=== PATIENT | male | born 1970 | race Caucasian/White ===

== ENCOUNTER → 2025-01-11 | Outpatient (CLI) | payer OTHER, SELFPAY ==
--- OUTSIDE RECORDS SUMMARY | 2025-01-11 18:21 | XMS RPT_ITS | CCD ---
Author Organization [facility] ion [facility] Care Team Providers Care Consolidator Name Role Phone Chon Cedeno Unavailable Unavailable Chandra Currie Unavailable Unavailable Cordell COOLEY, Franc Hurley Primary Care Provider Cordell COOLEY, Franc Hurley Primary Care Provider [phone] Cordell COOLEY, Franc Hurley Primary Care Provider [phone] Cordell COOLEY, Franc Hurley Primary Care Provider [phone] [employer] CLIENT SERVICES [email or web address].CAMPOS, Maria Fernanda Mcgee Unavailable [phone] MARY SANCHEZ Referring Unavailable COFFMAN, FRANC Hurley Primary Care Unavailable COFFMAN, FRANC Hurley Referring Unavailable COFFMAN, FRANC Hurley Primary Care Unavailable PAYTON GLASS Attending Unavailab le SELF Referring Unavailable COFFMAN, BENITA Primary Care Unavailable COFFMAN, BENITA Referring Unavailable COFFMAN, FRANC Hurley Primary Care Unavailable MARIA FERNANDA OSEI Referring Unavailable COFFMAN, FRANC Hurley Primary Care Unavailable RONALD GONSALVES Referring Unavailable COFFMAN, FRANC Hurley Primary Care Unavailable COFFMAN, FRANC Hurley Primary Care Unavailable COFFMAN, FRANC Hurley Primary Care Unavailable COFFMAN, FRANC Hurley Primary Care Unavailable COFFMAN, FRANC Hurley Attending Unavailable COFFMAN, FRANC Hurley Primary Care Unavailable COFFMAN, BENITA Referring Unavailable COFFMAN, BENITA Primary Care Unavailable Allergies Allergy Classification Reported Allergen(s) Allergy Type Date of Onset Reaction(s) Facility (2 sources) lisinopril; Translations: [LISINOPRIL] Drug Allergy 03-31-19 06 AOF [facility] Repository (2 sources) nystatin; Translations: [NYSTATIN] Drug Allergy 03-18-20 09 RASH [facility] Repository (2 sources) Sulfonamides (Antibiotic); Translations: [SULFA (SULFONAMIDE ANTIBIOTICS)] Drug allergy (disorder) 02-26-20 05 Unknown [facility] Repository (20 sources) Lisinopril Drug Allergy 03-31-19 06 Swelling [facility] Work Phone: (20 sources) Nystatin Drug Allergy 03-18-20 09 Rash [facility] Work Phone: (20 sources) Sulfamethoxazole / Trimethoprim; Translations: [SULFAMETHOXAZOLE-T RIMETHOPRIM] Drug Allergy 07-18-19 06 Intolerance [facility] Work Phone: (20 sources) Sulfonamides (Antibiotic) Propensity to adverse reactions 02-26-20 05 Angioedema [facility] (10 sources) environmental [Other] Propensity to adverse reactions 06-27-19 11 Other: See Comments [facility] Medications Current Medications Medication Drug Class(es) Dates Sig (Normalized) Sig (Original) [id number] actuat albuterol 0.09 mg/actuat metered dose inhaler (20 sources) beta2-Adrenergic Agonist Start: 08-17-2024 take 2 puff(s) by inhalation every four hours as needed for cough albuterol HFA (PROVENTIL HFA, VENTOLIN HFA) 90 mcg/actuation inhaler Indications: Mild intermittent asthma without complication (HCC) Inhale 2 puffs as instructed every 4 hours as needed for wheezing/shortness of breath (chest tightness or cough, use with spacer. Can use 15 min pre-exercise). 18 g 3 08/17/2024 Active Start: 06-04-2021 End: 08-17-2023 take 2 puff(s) by inhalation every four hours as needed for cough albuterol HFA (PROVENTIL HFA, VENTOLIN HFA) 90 mcg/actuation inhaler Indications: Mild intermittent asthma without complication (HCC) Inhale 2 Puffs as instructed every 4 hours as needed for wheezing/shortness of breath (chest tightness or cough, use with spacer. Can use 15 min pre-exercise). 18 g 3 08/17/2023 Active Start: 06-06-2019 End: 07-25-2020 take 2 puff(s) by inhalation every four hours as needed for cough albuterol HFA (PROVENTIL HFA, VENTOLIN HFA) 90 mcg/actuation inhaler Indications: Mild intermittent asthma without complication Inhale 2 Puffs as instructed every 4 hours as needed for Wheezing/Shortness of Breath (chest tightness or cough, use with spacer. Can use 15 min pre-exercise). 3 Inhaler 3 06/06/2019 07/25/2020 Discontinued Comment on above: Inhale 2 Puffs as in structed every 4 hours as needed for wheezing/shortness of breath (chest tightness or cough, use with spacer. Can use 15 min pre-exercise). Budesonide / formoterol (20 sources) Corticosteroid, beta2-Adrenergic Agonist Start: 03-31-19 take 1 puff(s) by mouth twice daily budesonide-formotero l (SYMBICORT) 80-4.5 mcg/actuation inhaler Indications: Mild intermittent asthma without complication (HCC) Inhale 1 Puff as instructed two times a day. Use with spacer. Rinse mouth out after use. 3 g 3 03/31/2024 Active Start: 03-31-2024 take 1 puff(s) by mo [facility] twice daily budesonide-formoterol (SYMBICORT) 80-4.5 mcg/actuation inhaler Indications: Mild intermittent asthma without complication Inhale 1 Puff as instructed two times a day. Use with spacer. Rinse mouth out after use. 3 g 3 03/31/2024 Active Start: 02-22-2023 End: 03-28-2024 take 1 puff(s) by mouth twice daily budesonide-formoterol (SYMBICORT) 80-4.5 mcg/actuation inhaler Indications: Mild intermittent asthma without complication Inhale 1 Puff as instructed two times a day. Use with spacer. Rinse mouth out after use. 3 g 3 02/22/2023 03/28/2024 Discontinued Start: 02-22-2023 take 1 puff(s) by mo ut twice daily budesonide-formoterol (SYMBICORT) 80-4.5 mcg/actuation inhaler Indications: Mild intermittent asthma without complication Inhale 1 Puff as instructed two times a day. Use with spacer. Rinse mouth out after use. 3 g 3 02/22/2023 Active Start: 02-12-2023 End: 02-21-2023 take 1 puff(s) by mouth twice daily budesonide-formoterol (SYMBICORT) 80-4.5 mcg/actuation inhaler Indications: Mild intermittent asthma without complication Inhale 1 Puff as instructed two times a day. Use with spacer. Rinse mouth out after use. 3 g 3 02/12/2023 02/21/2023 Discontinued Start: 02-12-2023 take 1 puff(s) by mo [facility] twice daily budesonide-formoterol (SYMBICORT) 80-4.5 mcg/actuation inhaler Indications: Mild intermittent asthma without complication Inhale 1 Puff as instructed two times a day. Use with spacer. Rinse mouth out after use. 3 g 3 02/12/2023 Active Start: 02-10-2022 End: 02-12-2023 take 1 puff(s) by mouth twice daily budesonide-formoterol (SYMBICORT) 80-4.5 mcg/actuation inhaler Indications: Mild intermittent asthma without complication Inhale 1 Puff as instructed twice daily. Use with spacer. Rinse mouth out after use. 3 g 3 02/10/2022 02/12/2023 Discontinued Start: 02-10-2022 take 1 puff(s) by mo [facility] twice daily budesonide-formoterol (SYMBICORT) 80-4.5 mcg/actuation inhaler Indications: Mild intermittent asthma without complication Inhale 1 Puff as instructed twice daily. Use with spacer. Rinse mouth out after use. 3 g 3 02/10/2022 Active Start: 01-28-2021 End: 02-10-2022 take 1 puff(s) by mouth twice daily budesonide-formoterol (SYMBICORT) 80-4.5 mcg/actuation inhaler Indications: Mild intermittent asthma without complication Inhale 1 Puff as instructed twice daily. Use with spacer. Rinse mouth out after use. 3 g 3 01/28/2021 02/10/2022 Discontinued Start: 01-28-2021 take 1 puff(s) by mo [facility] twice daily budesonide-formoterol (SYMBICORT) 80-4.5 mcg/actuation inhaler Indications: Mild intermittent asthma without complication Inhale 1 Puff as instructed twice daily. Use with spacer. Rinse mouth out after use. 3 g 3 01/28/2021 Active Start: 09-01-2019 End: 10-19-2020 take 1 puff(s) by mouth twice daily budesonide-formoterol (SYMBICORT) 80-4.5 mcg/actuation inhaler Indications: Mild intermittent asthma without complication Inhale 1 Puff as instructed twice daily. Use with spacer. Rinse mouth out after use. 3 Inhaler 3 09/01/2019 10/19/2020 Discontinued Comment on above: Inhale 1 Puff as ins tructed twice daily. Use with spacer. Rinse mouth out after use. Inhale 1 Puff as ins tructed two times a day. Use with spacer. Rinse mouth out after use. cetirizine hydrochloride 10 mg oral tablet (20 sources) Histamine-1 Receptor Antagonist Start: take 1 tablet by mouth once daily as needed cetirizine (ZYRTEC) 10 mg tablet Indications: Mild intermittent asthma without complication (HCC) Take 1 tablet by mouth once daily as needed for cold/allergy symptoms. 90 tablet 3 01/28/2021 Active Start: 06-06-2019 End: 07-25-2020 take 1 tablet by mouth once daily as needed cetirizine (ZYRTEC) 10 mg tablet Indications: Mild intermittent asthma without complication Take 1 tablet by mouth once daily as needed for Cold/Allergy Symptoms. 90 tablet 3 06/06/2019 07/25/2020 Discontinued Comment on above: Take 1 tablet by [facility] once daily as needed for cold/allergy symptoms. doxycycline hyclate 100 mg oral tablet (3 sources) Tetracycline-class Drug Start: End: take 1 tablet by mouth twice daily doxycycline (VIBRA-TABS) 100 mg tablet Take 1 tablet by mouth two times a day for 7 days. 14 tablet 07/27/2024 08/03/2024 Active Start: 06-21-2023 End: 06-26-2023 take 1 capsule by mouth twice daily doxycycline monohydrate (MONODOX) 100 mg capsule Indications: Bacterial pneumonia Take 1 capsule by mouth two times a day for 5 days. 10 capsule 06/21/2023 06/26/2023 Comment on above: Take 1 capsule by mo [facility] two times a day for 5 days. 24 hr felodipine 5 mg extended release oral tablet (20 sources) Dihydropyridine Calcium Channel Mavis Start: 08-18-19 take 1 tablet by mouth once daily felodipine ER (PLENDIL) 5 mg 24 hr tablet Indications: Essential hypertension Take 1 tablet by mouth once daily. 90 tablet 3 08/17/2024 Active Start: 10-06-2022 End: 10-05-2023 take 1 tablet by mouth once daily felodipine ER (PLENDIL) 5 mg 24 hr tablet Indications: Essential hypertension Take 1 tablet by mouth once daily. 90 tablet 3 10/06/2023 Active Start: 01-28-2021 End: 10-04-2022 take 1 tablet by mouth once daily felodipine ER (PLENDIL) 5 mg 24 hr tablet Indications: Essential hypertension Take 1 tablet by mouth once daily. 90 tablet 3 02/10/2022 10/04/2022 Discontinued Start: 09-01-2019 End: 07-25-2020 take 1 tablet by mouth once daily felodipine ER (PLENDIL) 5 mg 24 hr tablet Indications: Essential hypertension Take 1 tablet by mouth once daily. 90 tablet 3 09/01/2019 07/25/2020 Discontinued Comment on above: Take 1 tablet by [facility] once daily. hyoscyamine sulfate 0.125 mg oral tablet (20 sources) Start: 08-17-2024 take 2 tablets by mouth every six hours as needed for diarrhea hyoscyamine (LEVSIN) 0.125 mg tablet Indications: Irritable bowel syndrome with both constipation and diarrhea Take 2 tablets by mouth every 6 hours as needed (cramping, diarrhea). 80 tablet 1 08/17/2024 Active Start: 08-17-2023 take 2 tablets by mo [facility] every six hours as needed for diarrhea hyoscyamine (LEVSIN) 0.125 mg tablet Indications: Irritable bowel syndrome with both constipation and diarrhea Take 2 tablets by mouth every 6 hours as needed (cramping, diarrhea). 80 tablet 1 08/17/2023 Active Start: 12-28-2022 End: 08-17-2023 take 1 tablet by mouth every six hours as needed for diarrhea hyoscyamine (LEVSIN) 0.125 mg tablet Indications: Irritable bowel syndrome with both constipation and diarrhea Take 1 tablet by mouth every 6 hours as needed (cramping, diarrhea). 40 tablet 1 12/28/2022 08/17/2023 Discontinued Start: 12-06-2018 End: 12-26-2022 take 1 tablet by mouth every six hours as needed for diarrhea hyoscyamine (LEVSIN) 0.125 mg tablet Indications: Irritable bowel syndrome with both constipation and diarrhea Take 1 tablet by mouth every 6 hours as needed (cramping, diarrhea). 40 tablet 1 05/27/2021 12/26/2022 Discontinued Comment on above: Take 1 tablet by carine th every 6 hours as needed (cramping, diarrhea). irbesartan 150 mg oral tablet (20 sources) Angiotensin 2 Receptor Mavis Start: take 1 tablet by mouth once daily at bedtime irbesartan (AVAPRO) 150 mg tablet Indications: Essential hypertension Take 1 tablet by mouth daily at bedtime. 90 tablet 3 01/10/2024 Active Start: 02-26-2020 End: 01-08-2024 take 1 tablet by mouth once daily at bedtime irbesartan (AVAPRO) 150 mg tablet Indications: Essential hypertension Take 1 tablet by mouth daily at bedtime. 90 tablet 3 02/22/2023 01/08/2024 Discontinued Comment on above: Take 1 tablet by carine th daily at bedtime. meloxicam 15 mg oral tablet (5 sources) Nonsteroidal Anti-inflammatory Drug Start: 08-11-19 End: 02-13-20 take 1 tablet by mouth once daily at mealtime meloxicam (MOBIC) 15 mg tablet Take 1 tablet by mouth once daily. With food. 30 tablet 1 08/10/2022 02/12/2023 Discontinued (Course of therapy completed) Comment on above: Take 1 tablet by carine th once daily. With food. montelukast 10 mg oral tablet (20 sources) Leukotriene Receptor Antagonist Start: 08-18-19 take 1 tablet by mouth once daily at bedtime montelukast (SINGULAIR) 10 mg tablet Indications: Mild intermittent asthma without complication (HCC) Take 1 tablet by mouth daily at bedtime. 90 tablet 3 08/17/2024 Active Start: 01-10-2024 take 1 tablet by carine th once daily at bedtime montelukast (SINGULAIR) 10 mg tablet Indications: Mild intermittent asthma without complication (HCC) Take 1 tablet by mouth daily at bedtime. 90 tablet 3 01/10/2024 Active Start: 01-28-2021 End: 01-08-2024 take 1 tablet by mouth once daily at bedtime montelukast (SINGULAIR) 10 mg tablet Indications: Mild intermittent asthma without complication Take 1 tablet by mouth daily at bedtime. 90 tablet 3 11/10/2022 01/08/2024 Discontinued Start: 09-01-2019 End: 07-25-2020 take 1 tablet by mouth once daily at bedtime montelukast (SINGULAIR) 10 mg tablet Indications: Mild intermittent asthma without complication Take 1 tablet by mouth daily at bedtime. 90 tablet 3 09/01/2019 07/25/2020 Discontinued Comment on above: Take 1 tablet by carine th daily at bedtime. Take 1 tablet by carine th daily at bedtime for 15 days. olopatadine hydrochloride 0.665 mg/actuat metered dose nasal spray (1 source) Histamine-1 Receptor Inhibitor Start: End: 3 take 2 spray(s) nasal route twice daily as needed Olopatadine (PATANASE) 0.6 % spry Use 2 Sprays in each nostril twice daily as needed (allergies). 90.5 g 1 02/12/2022 08/10/2022 Discontinued (Discontinued by Patient) Comment on above: Use 2 Sprays in each nostril twice daily as needed (allergies). predniSONE 20 mg oral tablet (6 sources) Start: 5 End: 5 take 2 tablets by mouth once daily predniSONE (DELTASONE) 20 mg tablet Take 2 tablets by mouth once daily for 5 days. 10 tablet 07/27/2024 08/01/2024 Active Start: 06-21-2023 End: 06-26-2023 take 1 tablet by mouth once daily predniSONE (DELTASONE) 50 mg Indications: Bacterial pneumonia Take 1 tablet by mouth once daily for 5 days. 5 tablet 06/21/2023 06/26/2023 Start: 02-06-2022 End: 02-11-2022 take 2 tablets by mouth once daily at mealtime predniSONE (DELTASONE) 20 mg tablet Indications: Mild intermittent asthma with acute exacerbation Take 2 tablets by mouth once daily for 5 days. Take daily with food. 10 tablet 0 02/06/2022 02/11/2022 Active Start: 07-07-2020 End: 07-12-2020 take 2 tablets by mouth once daily predniSONE (DELTASONE) 20 mg tablet Take 2 tablets by mouth once daily for 5 days. 10 tablet 07/07/2020 07/12/2020 Comment on above: Take 2 tablets by mo [facility] once daily for 5 days. Take daily with food. Take 1 tablet by carine once daily for 5 days. THERAPEUTIC MULTIVITAMIN TAB (20 sources) Start: 05-14-2006 THERAPEUTIC MULTIVITAMIN TAB Take one(1) tablet daily. 0 05/14/2006 Active Comment on above: Take one(1) tablet d aily. Completed/Discontinued Medications Medication Drug Class(es) Dates Sig (Normalized) Sig (Original) azelastine hydrochloride 0.206 mg/actuat metered dose nasal spray (8 sources) Histamine-1 Receptor Antagonist Start: 01-28-2021 End: 02-10-2022 take 2 spray(s) nasal route once daily as needed Azelastine (ASTEPRO) 205.5 mcg (0.15 %) spry Use 2 Sprays in each nostril once daily as needed. Try in the evenings first. 3 Each 3 02/10/2022 Active Start: 09-01-2019 End: 10-19-2020 take 2 spray(s) nasal route once daily as needed Azelastine (ASTEPRO) 0.15 % (205.5 mcg) spry Use 2 Sprays in each nostril once daily as needed. Try in the evenings first. 3 Bottle 3 09/01/2019 10/19/2020 Discontinued Comment on above: Use 2 Sprays in each nostril once daily as needed. Try in the evenings first. bisacodyl 5 mg delayed release oral tablet (3 sources) Stimulant Laxative Start: 01-29-20 21 End: 07-30-19 22 Bisacodyl (DULCOLAX) 5 mg tab Use as directed for Miralax / Gatorade Bowel Prep Kit 4 tablet 0 01/28/2021 07/29/2021 Discontinued (Course of therapy completed) Comment on above: Use as directed for Miralax / Gatorade Bowel Prep Kit cyclobenzaprine hydrochloride 10 mg oral tablet (2 sources) Muscle Relaxant Start: 07-08-19 End: 07-26-19 take 1 tablet by mouth every eight hours as needed cyclobenzaprine (FLEXERIL) 10 mg tablet Take 1 tablet by mouth three times daily as needed for Muscle Spasm. 15 tablet 07/11/2020 07/25/2020 Discontinued Gatorade Sports Drink (3 sources) Start: 01-29-20 End: 07-30-19 Gatorade Sports Drink Use as directed for Miralax / Gatorade Bowel Prep Kit 0 01/28/2021 07/29/2021 Discontinued (Course of therapy completed) Start: 01-28-2021 Gatorade Sport s Drink Use as directed for Miralax / Gatorade Bowel Prep Kit 0 01/28/2021 Active Comment on above: Use as directed for Miralax / Gatorade Bowel Prep Kit polyethylene glycol 3350 25572 mg powder for oral solution (3 sources) Osmotic Laxative Start: 01-28-2021 End: 07-29-2021 polyethylene glycol 3350 (MIRALAX, GLYCOLAX) 17 gram/dose powder Use as directed for Miralax / Gatorade Bowel Prep Kit 238 g 0 01/28/2021 07/29/2021 Discontinued (Course of therapy completed) Comment on above: Use as directed for Miralax / Gatorade Bowel Prep Kit Problems Active Problems Problem Classification Problem Date Documented Da te Episodic/Chronic Abdominal hernia (1 source) Umbilical hernia; Translations: [Umbilical hernia without obstruction or gangrene] 08-17-2023 Episodic Abdominal pain (1 source) Generalized abdominal pain; Translations: [Abdominal pain, generalized] Onset: 5 Episodic Anal and rectal conditions (1 source) Hyperplastic polyp of large intestine; Translations: [Rectal polyp] Episodic Asthma (20 sources) Asthma, unspecified type, unspecified; Translations: [Asthma] Onset: 6 04-11-2015 Chronic Diabetes mellitus without complication (4 sources) Disorder of glucose metabolism; Translations: [Other abnormal glucose] Onset: 5 11-10-2022 Episodic Disorders of lipid metabolism (20 sources) Pure hyperglyceridemia; Translations: [Pure hyperglyceridemia] Onset: 6 05-25-2016 Chronic Essential hypertension (20 sources) Unspecified essential hypertension; Translations: [Essential hypertension] Onset: 3 05-25-2016 Chronic External Injury - Natural / Environment (1 source) Late effects of unspecified accident; Translations: [LATE EFF ACCIDENT NOS] Onset: 7 External Injury - Place of occurrence (1 source) Accidents occurring in unspecified place; Translations: [ACCIDENT IN PLACE NOS] Onset: 7 Immunizations and screening for infectious disease (6 sources) Patient encounter status; Translations: [Encounter for screening for human immunodeficiency virus [HIV]] Episodic Other gastrointestinal disorders (20 sources) Irritable bowel syndrome; Translations: [Mixed irritable bowel syndrome] Onset: 9 12-06-2018 Chronic Other gastrointestinal disorders (1 source) Mixed irritable bowel syndrome; Translations: [Irritable bowel syndrome with both constipation and diarrhea] Onset: 9 Chronic Other gastrointestinal disorders (1 source) Other specified symptoms and signs involving the digestive system and abdomen; Translations: [Rovsing's sign present] Onset: 5 Episodic Other liver diseases (1 source) Alkaline phosphatase raised; Translations: [Abnormal levels of other serum enzymes] Episodic Other lower respiratory disease (1 source) Cough; Translations: [Acute cough] 06-23-2023 Episodic Other lower respiratory disease (1 source) Dyspnea; Translations: [Shortness of breath] 06-23-2023 Episodic Other lower respiratory disease (2 sources) Cough; Translations: [Acute cough] 07-27-2024 Episodic Other lower respiratory disease (1 source) Snoring; Translations: [Snoring] Onset: 5 Episodic Other non-traumatic joint disorders (1 source) Pain in elbow; Translations: [Pain in left elbow] Episodic Other screening for suspected conditions (not mental disorders or infectious disease) (3 sources) Abnormal findings on diagnostic imaging of other specified body structures; Translations: [Nonspecific (abnormal) findings on radiological and other examination of other intrathoracic organs] Onset: 5 09-21-2024 Chronic Other screening for suspected conditions (not mental disorders or infectious disease) (1 source) Encounter for screening for cardiovascular disorders; Translations: [Encounter for screening for coronary artery disease] Onset: 5 Episodic Other upper respiratory disease (20 sources) Seasonal allergic rhinitis; Translations: [Other seasonal allergic rhinitis] Onset: 1 05-25-2016 Chronic Other upper respiratory infections (1 source) Acute upper respiratory infection; Translations: [Acute upper respiratory infection, unspecified] Episodic Pneumonia (except that caused by tuberculosis or sexually transmitted disease) (3 sources) Bacterial pneumonia; Translations: [Unspecified bacterial pneumonia] Onset: 5 06-21-2023 Episodic Residual codes; unclassified (1 source) Family history of malignant neoplasm of digestive organs; Translations: [Family history of pancreatic cancer] Onset: 5 Episodic Screening and history of mental health and substance abuse codes (2 sources) Encounter for screening for depression; Translations: [Encounter for screening examination for other mental health and behavioral disorders] Onset: 5 Episodic Spondylosis; intervertebral disc disorders; other back problems (1 source) Lumbago with sciatica; Translations: [Lumbago with sciatica, unspecified side] 07-11-2020 Episodic Unclassified (1 source) Acute cough; Translations: [Acute cough] Onset: 5 Past or Other Problems Problem Classification Problem Date Documented Date Episodic/Chronic Esophageal disorders (20 sources) Gastroesophageal reflux disease; Translations: [Gastro-esophageal reflux disease without esophagitis] Onset: 10-25-2006 Resolved: 08-10-2022 10-25-2006 Chronic Hemorrhoids (19 sources) Hemorrhoids without complication; Translations: [Residual hemorrhoidal skin tags] Onset: 04-09-2015 Resolved: 05-25-2016 05-25-2016 Episodic Miscellaneous mental health disorders (19 sources) Dissociative neurological symptom disorder; Translations: [Dissociative and conversion disorder, unspecified] Onset: 10-25-2006 Resolved: 12-28-2012 12-28-2012 Chronic Other injuries and conditions due to external causes (19 sources) Angioedema; Translations: [Angioneurotic edema, initial encounter] Onset: 07-17-2005 Resolved: 05-25-2016 05-25-2016 Episodic Other non-traumatic joint disorders (19 sources) Chronic ankle pain; Translations: [Pain in left ankle and joints of left foot] Onset: 05-25-2016 Resolved: 04-06-2017 04-06-2017 Episodic Residual codes; unclassified (11 sources) Family history of malignant neoplasm of pancreas; Translations: [Family history of malignant neoplasm of digestive organs] Onset: 08-17-2024 08-17-2023 Episodic Sprains and strains (20 sources) Other sprains and strains of ankle; Translations: [Ruptured Achilles tendon - traumatic] Onset: 11-30-2013 Resolved: 05-25-2016 05-25-2016 Episodic Results Test Name Value Interpretation Reference Range Facility XR CHEST 2V FRONTAL/LATon XR CHEST 2V FRONTAL/LAT * * *Final Report* * * DATE OF EXAM: Sep 27 2024 8:07AM [id number] - XR CHEST 2V FRONTAL/LAT / PROCEDURE REASON: Abnormal chest x-ray * * * * Physician Interpretation * * * * EXAMINATION: CHEST RADIOGRAPH (2 VIEW FRONTAL and LATERAL) CLINICAL HISTORY: Abnormal chest x-ray MQ: [id number] EXAM DATE/TIME: 09/27/2024 8:07 AM COMPARISON: Chest x-ray on 07/27/2024 RESULT: Lines, tubes, and devices: None. Lungs and pleura: Interval improvement of pulmonary infiltrates/atelectase s in the lower lungs. No new consolidations. No lung mass. No pleural effusion. No pneumothorax. Cardiomediastinal silhouette: Normal cardiomediastinal silhouette. Bones and soft tissues: Unremarkable. IMPRESSION: Interval improvement of pulmonary infiltrates/atelectase s in the lower lungs. Photographer Motion Picture: KRISTIAN Transcribe Date/Time: Sep 27 2024 12:44P Dictated by : PERRY OTOOLE MD This examination was interpreted and the report reviewed and electronically signed by: PERRY OTOOLE MD on Sep 27 2024 12:48PM EST [id number] Normal [facility] XR Chest PA and Lateralon Addendum by Provider , [facility] [place] on 09/27/2024 12:48 PM EDT * * *Final Report* * * DATE OF EXAM: Sep 27 2024 8:07AM [id number] - XR CHEST 2V FRONTAL/LAT / PROCEDURE REASON: Abnormal chest x-ray * * * * Physician Interpretation * * * * EXAMINATION: CHEST RADIOGRAPH (2 VIEW FRONTAL & LATERAL) CLINICAL HISTORY: Abnormal chest x-ray MQ: [id number] EXAM DATE/TIME: 09/27/2024 8:07 AM COMPARISON: Chest x-ray on 07/27/2024 RESULT: Lines, tubes, and devices: None. Lungs and pleura: Interval improvement of pulmonary infiltrates/atelectase s in the lower lungs. No new consolidations. No lung mass. No pleural effusion. No pneumothorax. Cardiomediastinal silhouette: Normal cardiomediastinal silhouette. Bones and soft tissues: Unremarkable. IMPRESSION: Interval improvement of pulmonary infiltrates/atelectase s in the lower lungs. Photographer Motion Picture: PSCB Transcribe Date/Time: Sep 27 2024 12:44P Dictated by : PERRY OTOOLE MD This examination was interpreted and the report reviewed and electronically signed by: PERRY OTOOLE MD on Sep 27 2024 12:48PM EST [facility] Radiology Study observation (narrative) [facility] XR Chest PA and LateralOrder ed By: [facility] Provider on 09-27-2024 [facility] ALIR[facility] POR[facility]AS ([id number]) 1970 M Date Time Provider Department 09/21/24 FRANC COFFMAN INTMWS During your visit today, we recorded the following information about you: Sosa Chang 09/21/2024 10:36 AM Signed Patient presented today to have Chest Xray done but order was accidentally cancelled when patient's appointment was cancelled. Please file new order. Franc Coffman MD 09/21/2024 11:18 AM Signed ASSESSMENT/PLAN: 1. Abnormal chest x-ray - ICD9: 793.2, ICD10: R93.89 - XR CHEST 2V FRONTAL/LAT MD Heidi Kruger Lydia 09/21/2024 2:21 PM Signed [address] [place] [address] Carolin Ward 09/23/2024 10:36 AM Signed Spoke with patient and he prefers a walk in to complete xray Allergies As of Date: 09/21/2024 Noted Allergy Reaction BACTRIM DS (SULFAMETHOXAZOLE-TRIM *07/17/2005 5 - Intolerance LISINOPRIL 03/31/2005 7 - Swelling NYSTATIN 03/18/2009 2 - Rash SULFA (SULFONAMIDE ANTIBIOTICS) 02/25/2005 18 - Angioedema Date Reviewed: 08/17/2024 Reviewed by: Gracy Ibarra LPN - Fully Assessed Reason for Visit: Orders [681] Primary Visit Diagnosis:Abnormal chest x-ray [R93.89] Order(s):XR CHEST 2V FRONTAL/LAT [[id number]] Order #: [id number] FUTURE Prescriptions as of 09/23/2024 - albuterol HFA (PROVENTIL HFA, VENTOLIN HFA) 90 mcg/actuation inhaler Inhale 2 puffs as instructed every 4 hours as needed for wheezing/shortness of breath (chest tightness or cough, use with spacer. Can use 15 min pre-exercise). - hyoscyamine (LEVSIN) 0.125 mg tablet Take 2 tablets by mouth every 6 hours as needed (cramping, diarrhea). - felodipine ER (PLENDIL) 5 mg 24 hr tablet Take 1 tablet by mouth once daily. - montelukast (SINGULAIR) 10 mg tablet Take 1 tablet by mouth daily at bedtime. - budesonide-formoterol (SYMBICORT) 80-4.5 mcg/actuation inhaler Inhale 1 Puff as instructed two times a day. Use with spacer. Rinse mouth out after use. - irbesartan (AVAPRO) 150 mg tablet Take 1 tablet by mouth daily at bedtime. - cetirizine (ZYRTEC) 10 mg tablet Take 1 tablet by mouth once daily as needed for cold/allergy symptoms. - THERAPEUTIC MULTIVITAMIN TAB Take one(1) tablet daily. Problem List As Of Date 09/21/2024 Noted Resolved Essential hypertension [I10] 10/19/2002 Asthma [J45.909] Pure hyperglyceridemia [E78.1] 04/10/2005 Angioedema [T78.3XXA] 07/17/2005 05/25/2016 Esophageal reflux [K21.9] 10/25/2006 08/10/2022 Conversion disorder [F44.9] 10/25/2006 12/28/2012 Rupture of Achilles tendon, traumatic [S86.019A]11/30/2013 05/25/2016 Internal and external hemorrhoids without compl*04/09/2015 05/25/2016 Chronic pain of left ankle [M25.572, G89.29] 05/25/2016 04/06/2017 Seasonal allergic rhinitis [J30.2] 06/26/2010 Irritable bowel syndrome with both constipation* Family history of pancreatic cancer [Z80.0] 08/17/2024 Encounter Status:Closed by CAROLIN WARD on 09/23/24 Normal [facility] POLYSOMNOGRAM (PSG)/HOME SLE EP APNEA TEST (HSAT)on 09-16-2024 POLYSOMNOGRAM (PSG)/HOME SLEEP APNEA TEST (HSAT) [facility] at [address], [address], [place] [address] ; Home Sleep Apnea Test (HSAT) Study Report Name: ALIRIO PORRAS Date of Study: 09/16/2024 [facility]#: [id number] Age: 54 (: 1970) ESS: 07/20 Neck Circ. (cm): 45 Height (cm): 180.3 Weight (kg): 93.1 BMI: 28.6 Referring Provider: FRANC COFFMAN Mailcode: [id number] Sleep history: The patient is a 54 year old male with a history of snoring, waking up snorting. The patient endorses being a habitual side sleeper. The patient is here for assessment of obstructive sleep apnea. Pertinent medical history: Allergic Rhinitis, Asthma, Hypertension Medications: Montelukast, Irbesartan, Felodipine, Symbicort, Albuterol Sleep procedure: PSG unattended Type III, minimum of 4 parameters (08636) Procedure: This study was performed using a Type III ambulatory PSG device and was unattended. The patient was instructed on proper use of the device by a registered instrumentation technologist. The monitored parameters included heart rate, oxygen saturation, continuous airflow with thermistor and nasal pressure transducer, snoring via nasal pressure transducer, chest and abdominal effort, and body position. TAMICA definition: Respiratory event index (TAMICA), calculated as respiratory events x 60 / TRT (total recording time in minutes). Note: the apnea hypopnea index has been replaced by the respiratory event index for home sleep apnea test. Since the home sleep apnea test does not measure sleep, the TAMICA is most accurate index of respiratory events. The TAMICA is a surrogate of the AHI per the AASM Manual for Scoring of Sleep and Associated Events version 3. Apnea definition: The peak signal excursions drop by >90% of pre-event baseline using an oronasal thermal sensor (diagnostic study), PAP device flow (titration study) or an alternative apnea sensor (diagnostic study). The duration of the >90% drop in signal excursion is >=10 seconds. Hypopnea definition: The peak signal excursions drop by >= 30% of pre-event baseline using nasal pressure (diagnostic study), PAP device flow (titration study) or an alternative hypopnea sensor (diagnostic study). The duration of the >= 30% drop in signal excursion is >=10 seconds. There is a greater than or equal to 3% oxygen desaturation from pre-event baseline. RESPIRATORY DATA: The study started at 22:09:36 and ended at 05:56:50 and the total recording time was 467 minutes. By convention, sleep is assumed for the whole recording. Snoring was noted. There was a total of 40 respiratory events. Of these events, the total number of apneas was 0 (0 obstructive, 0 mixed, and 0 central (0.0%)) and 40 hypopneas. The central apnea index (MARLIN) was 0.0. The respiratory event index (TAMICA) was 5.1 events per hour of study time. The mean oxygen saturation during the study was 94.0%, with a minimum oxygen saturation of 89.0%. The patient spent 0.2 minutes at oxygen saturation measured less than 90% (0.0% of recording time) and 0.0 minutes at oxygen saturation measured at or less than 88% (0.0% of recording time). Time TAMICA/AHI Supine 137.0 min 14.9 Off-Supine 330.5 min 1.1 Total 467.5 min 5.1 ECG DATA: The average heart rate was 63 bpm with a range of 43 bpm to 112 bpm. ICSD DIAGNOSIS: Obstructive Sleep Apnea Syndrome [G47.33] IMPRESSION/RECOMMENDAT IONS: 1. This study confirms a diagnosis of at least mild obstructive sleep apnea. 2. The results of this study may represent an underestimation of the degree of obstructive sleep apnea, especially hypopneas, because of the known limitations of HSAT, such as inability to record arousals because EEG is not recorded. 3. Treatment of mild sleep apnea can include weight loss, positional therapy, treatment of allergies, oral appliance therapy or ENT evaluation of any airway abnormalities. PAP therapy may be considered in patients with documented symptoms of daytime sleepiness, impaired cognition, mood disorder, insomnia, or documented hypertension, ischemic heart disease, or history of stroke. INTERPRETING PHYSICIAN: MG Clarice DO, CBSM, ABSM I attest that I have performed epoch by epoch review of the entire raw data and find this study to be technically adequate. Report Digitally Signed By: STEFANY LUNDY DO (09/23/2024 3:01:05 PM) [facility] CNOVon 08-17-2024 CNOV Office Visit (INTMWS ) KASIAALIRIO Leo ([id number]) 1970 M Date Time Provider Department 08/17/24 8:00 AM FRANC COFFMAN INTMWS During your visit today, we recorded the following information about you: Pulse Respiration Blood pressure Weight 72/minute 16/minute 122/72 93.1 kg Height 1.803 m Franc Coffman MD 08/17/2024 9:43 AM Signed This note was created using NoteWriter. Subjective Patient presents with: Yearly Exam Alirio Porras is a 53 year old male. He had pneumonia earlier this month. He had residual cough. This caused colonoscopy scheduled with Dr. Harris to be postponed. Overall, he was better. We reviewed his lab results. He was interested in CAC scoring (free at with referral). He was unable to schedule with genetics last year for some reason. Concern was pancreatic cancer in his family. ASTHMA CONTROL TEST Date: 08/17/2024 In the last 4 weeks, how much of the time did your asthma keep you from getting as much done at work or home that you wanted to do? None of the time (5) In the last 4 weeks, how often have you had shortness of breath? Once or twice per week (4) In the last 4 weeks, how often did your asthma symptoms (wheezing, coughing, shortness of breath, chest tightness or pain) wake you up at night or earlier than usual? Not at all (5) In the last 4 weeks, how often have you used your rescue inhaler or nebulizer medication (such as Albuterol, Proventil, Ventolin, Maxair, Xoponex, or Primatene Mist)? A few times per week (3) In the last 4 weeks, how would you rate your asthma control? Completely controlled (5) Total: more than 20 1) Snoring? Yes. 2) Tired? No. 3) Observed apnea? No. 4) Pressure (Hypertension)? Yes. 5) BMI>45? No. 6) Age>50? . 7) Neck circumference >40cm? Yes. 8) Gender male? Yes. Conclude: Total 3 or more positive responses? Yes. Other providers: Michael Aranda MD ([facility]) [facility]. [facility] Harris [facility] Review of Systems Constitutional: Negative for diaphoresis, fatigue, fever and unexpected weight change. HENT: Negative for congestion and sore throat. Eyes: Negative for visual disturbance. Respiratory: Positive for cough. Negative for shortness of breath and wheezing. Cardiovascular: Negative for chest pain, palpitations and leg swelling. Gastrointestinal: Positive for abdominal pain and diarrhea. Negative for blood in stool, constipation, nausea and vomiting. Genitourinary: Negative for difficulty urinating and dysuria. Musculoskeletal: Negative. Skin: Negative. Neurological: Negative for dizziness and headaches. PAST MEDICAL HISTORY Diagnosis Date Angioedema 07/17/2005 angioedema from lisinopril Asthma (HCC) Conversion disorder Esophageal reflux Essential hypertension 10/19/2002 Pure hyperglyceridemia Pure hyperglyceridemia 04/10/2005 Rupture of Achilles tendon, traumatic 11/30/2013 Right side. Seasonal allergic rhinitis 06/26/2010 Unspecified asthma(493.90) 1980 childhood asthma PAST SURGICAL HISTORY Procedure Laterality Date COLONOSCOPY 06/06/2021 repeat in 10 years ESOPHAGOGASTRODUODENOS COPY TRANSORAL DIAGNOSTIC 10/25/2006 EGD HERNIA REPAIR HX PAST SURGICAL HISTORY OF Right 06/12/2013 open repair right Achilles tendon; Dr Chon Cedeno RPR 1ST INGUN HRNA AGE 6 YRS/> REDUCIBLE 12/07/2000 Hernia repair, inguinal VASECTOMY UNI/BI SPX W/POSTOP SEMEN EXAMS 05/2005 FAMILY HISTORY Problem Relation Age of Onset Hypertension Mother Lipids Mother Diabetes Father Cancer Father 70 Pancreatic Cancer Asthma Sister Ischemic Heart Disease Maternal Grandfather Pancreatic Cancer Paternal Aunt 80 - 89 Social History Tobacco Use Smoking status: Never Smokeless tobacco: Never Vaping Use Vaping status: Never Used Substance Use Topics Alcohol use: Yes Comment: 1-2 per week Drug use: No ALLERGIES Allergen Reactions Bactrim Ds [Sulfame* Intolerance Lisinopril Swelling Nystatin Rash Sulfa (Sulfonamide * Angioedema Current Outpatient Medications Medication Sig budesonide-formoterol (SYMBICORT) 80-4.5 mcg/actuation inhaler Inhale 1 Puff as instructed two times a day. Use with spacer. Rinse mouth out after use. irbesartan (AVAPRO) 150 mg tablet Take 1 tablet by mouth daily at bedtime. cetirizine (ZYRTEC) 10 mg tablet Take 1 tablet by mouth once daily as needed for cold/allergy symptoms. THERAPEUTIC MULTIVITAMIN TAB Take one(1) tablet daily. albuterol HFA (PROVENTIL HFA, VENTOLIN HFA) 90 mcg/actuation inhaler Inhale 2 puffs as instructed every 4 hours as needed for wheezing/shortness of breath (chest tightness or cough, use with spacer. Can use 15 min pre-exercise). hyoscyamine (LEVSIN) 0.125 mg tablet Take 2 tablets by mouth every 6 hours as needed (cramping, diarrhea). felodipine ER (PLENDIL) 5 mg 24 hr tablet (more content not included)... Normal [facility] HbA1c (Bld)on 08-16-2024 Average glucose Estimated from glycated hemoglobin (Bld) [Mass/Vol] 100 mg/dL Normal [facility] Comment on above: Order Comment: Edgardo xavier Type: BLOOD SPECIMENOrdering Facility: [facility] Address: [address] [place] [address] Result Comment: eAG: (Estimated average glucose) is a calculated value from HgbA1c and is textile designs sales representative of the average blood glucose level in the last 2-3 month period. Performed By: #### 5 5454-3 ####[facility] LABCLIA [id number] [address] STATES OF [facility] HbA1c (Bld) [Mass fraction] 5.1 % Normal 4.3-5.6 [facility] Comment on above: Order Comment: Edgardo xavier Type: BLOOD SPECIMENOrdering Facility: [facility] Address: [address] [place] [address] Result Comment: Amer ican Diabetes Association guidelines indicate that patients with HgbA1c in the range 5.7-6.4% are at increased risk for development of diabetes, and intervention by lifestyle modification may be beneficial. HgbA1c greater or equal to 6.5% is considered diagnostic of diabetes. Performed By: #### 5 5454-3 ####[facility] LABIA [id number] [address] OF [facility] Lipid 1996 panelon 5 Cholesterol [Mass/Vol] 193 mg/dL Normal <200 [facility] Comment on above: Order Comment: Edgardo duc Type: BLOOD SPECIMENOrdering Facility: [facility] Address: [address] [place] [address] Result Comment: <200 mg/dL, Desirable 200-239 mg/dL, Borderline high >239 mg/dL, High Performed By: #### 2 4331-1 ####[facility] LABIA [id number] [place] [address] [place] [facility] [id number] [address] [place] Cholesterol in HDL [Mass/Vol] 27 mg/dL Low >39 [facility] Comment on above: Order Comment: Edgardo duc Type: BLOOD SPECIMENOrdering Facility: [facility] Address: [address] [place] [address] Result Comment: 40-5 9 mg/dL, Acceptable >59 mg/dL, High: Negative risk factor for coronary heart disease <40 mg/dL, Low: Positive risk factor for coronary heart disease Performed By: #### 2 4331-1 ####[facility] LABCLIA [id number] [address] [id number] [place] [address] [place] Cholesterol in LDL [Mass/Vol] 92 mg/dL Normal <100 [facility] Comment on above: Order Comment: Edgardo duc Type: BLOOD SPECIMENOrdering Facility: [facility] Address: [address] [place] [address] Result Comment: <100 mg/dL, Optimal 100-129 mg/dL, Near optimal/above optimal 130-159 mg/dL, Borderline high 160-189 mg/dL, High >189 mg/dL, Very high Secondary prevention optimal LDL Cholesterol levels are recommended to be <70 mg/dL LDL cholesterol is calculated using the Arce-NIH equation. Performed By: #### 2 4331-1 ####[facility] LABCLIA [id number] [address] [id number] [place] [address] [place] Cholesterol in LDL/Cholesterol in HDL [Mass ratio] 3.41 {ratio} High <2.54 [facility] Comment on above: Order Comment: Tonyrachelle xavier Type: BLOOD SPECIMENOrdering Facility: [facility] Address: [address] [place] [address] Result Comment: Refe rence: 1. National Cholesterol Education Program ATP III Guideline At-A-Glance Quick Desk Reference: National Heart, Lung, and Blood [place]. National Institutes of Health. 2001: NIH Publication No. 01-3305. 2. An International Atherosclerosis Society position paper: global recommendations for the management of dyslipidemia: executive summary, Atherosclerosis. 2014: 232(2):410-413. Performed By: #### 2 4331-1 ####[facility] LABCLIA [id number] [address] [id number] [place] [address] Cholesterol in VLDL [Mass/Vol] 73 mg/dL High <30 [facility] Comment on above: Order Comment: Speci men Type: BLOOD SPECIMENOrdering Facility: [facility] Address: [address] [place] [address] Performed By: #### 2 4331-1 ####[facility] LABCLIA [id number] [id number] [place] [address] [place] Cholesterol non HDL [Mass/Vol] 166 mg/dL High <130 [facility] Comment on above: Order Comment: Speci men Type: BLOOD SPECIMENOrdering Facility: [facility] Address: [address] [place] [address] Result Comment: <130 mg/dL, Optimal 130-159 mg/dL, Near optimal/above optimal 160-189 mg/dL, Borderline high 190-219 mg/dL, High >219 mg/dL, Very high Secondary prevention optimal non HDL Cholesterol levels are recommended to be <100 mg/dL Performed By: #### 2 4331-1 ####[facility] LABCLIA [id number] [address] [id number] [address] [place] Cholesterol.total/Ch olesterol in HDL [Mass ratio] 7.15 {ratio} High <5.10 [facility] Comment on above: Order Comment: Speci men Type: BLOOD SPECIMENOrdering Facility: [facility] Address: [address] [place] [address] Performed By: #### 2 4331-1 ####[facility] LABCLIA [id number] [address] [id number] [place] [address] FASTING TIME 13 hrs Normal [facility] Comment on above: Order Comment: Speci men Type: BLOOD SPECIMENOrdering Facility: [facility] Address: [address] [place] [address] Performed By: #### 2 4331-1 ####[facility] LABCLIA [id number] [id number] [place] [address] [place] [facility] Triglyceride [Mass/Vol] 448 mg/dL High <150 [facility] Comment on above: Order Comment: Speci men Type: BLOOD SPECIMENOrdering Facility: [facility] Address: [address] [place] [address] Result Comment: <150 mg/dL, Normal 150-199 mg/dL, Borderline high 200-499 mg/dL, High >499 mg/dL, Very high Performed By: #### 2 4331-1 ####[facility] LABCLIA [id number] [address] [id number] [place] [address] OF [facility] Philip 08-15-2024 CLARI Telephone (INTMWS) ALIRIO PORRAS ([id number]) 1970 M Date Time Provider Department 08/15/24 FRANC COFFMAN INTEverardoWS During your visit today, we recorded the following information about you: Lynne Segundo MA 08/15/2024 7:46 AM Signed Patient is here for labs for yearly on 08/17. Please file orders Lynne Segundo MA Allergies As of Date: 08/15/2024 Noted Allergy Reaction BACTRIM DS (SULFAMETHOXAZOLE-TRIM *07/17/2005 5 - Intolerance LISINOPRIL 03/31/2005 7 - Swelling NYSTATIN 03/18/2009 2 - Rash SULFA (SULFONAMIDE ANTIBIOTICS) 02/25/2005 18 - Angioedema Date Reviewed: 08/15/2024 Reviewed by: Maria Fernanda Osei, CLIENT SERVICES ANALYST.VAULT [employer]KER - Fully Assessed Reason for Visit: Orders [681] Primary Visit Diagnosis:Pure hyperglyceridemia [E78.1] Other Visit Diagnoses:Essential hypertension [I10] Impaired glucose metabolism [R73.09] Order(s):LIPID PANEL, FASTING [SQLIPB] Order #: [id number] FUTURE HEMOGLOBIN A1C [CHAMR7P] Order #: [id number] FUTURE Prescriptions as of 08/15/2024 - budesonide-formoterol (SYMBICORT) 80-4.5 mcg/actuation inhaler Inhale 1 Puff as instructed two times a day. Use with spacer. Rinse mouth out after use. - montelukast (SINGULAIR) 10 mg tablet Take 1 tablet by mouth daily at bedtime. - irbesartan (AVAPRO) 150 mg tablet Take 1 tablet by mouth daily at bedtime. - felodipine ER (PLENDIL) 5 mg 24 hr tablet Take 1 tablet by mouth once daily. - albuterol HFA (PROVENTIL HFA, VENTOLIN HFA) 90 mcg/actuation inhaler Inhale 2 Puffs as instructed every 4 hours as needed for wheezing/shortness of breath (chest tightness or cough, use with spacer. Can use 15 min pre-exercise). - hyoscyamine (LEVSIN) 0.125 mg tablet Take 2 tablets by mouth every 6 hours as needed (cramping, diarrhea). - cetirizine (ZYRTEC) 10 mg tablet Take 1 tablet by mouth once daily as needed for cold/allergy symptoms. - THERAPEUTIC MULTIVITAMIN TAB Take one(1) tablet daily. Problem List As Of Date 08/15/2024 Noted Resolved Essential hypertension [I10] 10/19/2002 Asthma [J45.909] Pure hyperglyceridemia [E78.1] 04/10/2005 Angioedema [T78.3XXA] 07/17/2005 05/25/2016 Esophageal reflux [K21.9] 10/25/2006 08/10/2022 Conversion disorder [F44.9] 10/25/2006 12/28/2012 Rupture of Achilles tendon, traumatic [S86.019A]11/30/2013 05/25/2016 Internal and external hemorrhoids without compl*04/09/2015 05/25/2016 Chronic pain of left ankle [M25.572, G89.29] 05/25/2016 04/06/2017 Seasonal allergic rhinitis [J30.2] 06/26/2010 Irritable bowel syndrome with both constipation* 9 Encounter Status:Closed by MARIA FERNANDA OSEI on 08/15/24 [facility] CNOVon 07-27-2024 CN Office Visit (UCWSTR ) ALIRIO PORRAS ([id number]) 1970 M Date Time Provider Department 07/27/24 10:45 AM RONALD GONSALVES [facility] During your visit today, we recorded the following information about you: Temperature Pulse Respiration Blood pressure 98 degrees 86/minute 20/minute 113/83 Weight 93.4 kg Ronald Gonsalves APRN.[employer]ULT [employer]KER 07/27/2024 11:49 AM Signed Subjective HPI Nontoxic-appearing 53-year-old male presents urgent care chief complaint cough chest congestion. Initially did have body aches chills and fever. States last purulent symptom today is cough. OTC medications none. Has used rescue inhaler this helps some only for short amount of time. Presents today with persistent cough and some shortness of breath with coughing. Denies any chest pain or hemoptysis pleuritic pain. No productive cough. No fevers. Past medical history prescription medications allergies reviewed. .Patient presents with: Cough: Chest congestion, SOB, fever x6 days PAST MEDICAL HISTORY Diagnosis Date Angioedema 07/17/2005 angioedema from lisinopril Asthma (HCC) Conversion disorder Esophageal reflux Essential hypertension 10/19/2002 Pure hyperglyceridemia Pure hyperglyceridemia 04/10/2005 Rupture of Achilles tendon, traumatic 11/30/2013 Right side. Seasonal allergic rhinitis 06/26/2010 Unspecified asthma(493.90) 1980 childhood asthma PAST SURGICAL HISTORY Procedure Laterality Date COLONOSCOPY 06/06/2021 repeat in 10 years ESOPHAGOGASTRODUODENOS COPY TRANSORAL DIAGNOSTIC 10/25/2006 EGD HERNIA REPAIR HX PAST SURGICAL HISTORY OF Right 06/12/2013 open repair right Achilles tendon; Dr Chon Cedeno RPR 1ST INGUN HRNA AGE 6 YRS/> REDUCIBLE 12/07/2000 Hernia repair, inguinal VASECTOMY UNI/BI SPX W/POSTOP SEMEN EXAMS 05/2005 ALLERGIES Bactrim Ds [Sulfamethoxazole-Trim ethoprim], Lisinopril, Nystatin, and Sulfa (Sulfonamide Antibiotics) MEDICATIONS budesonide-formoterol (SYMBICORT) 80-4.5 mcg/actuation inhaler Inhale 1 Puff as instructed two times a day. Use with spacer. Rinse mouth out after use. montelukast (SINGULAIR) 10 mg tablet Take 1 tablet by mouth daily at bedtime. irbesartan (AVAPRO) 150 mg tablet Take 1 tablet by mouth daily at bedtime. felodipine ER (PLENDIL) 5 mg 24 hr tablet Take 1 tablet by mouth once daily. albuterol HFA (PROVENTIL HFA, VENTOLIN HFA) 90 mcg/actuation inhaler Inhale 2 Puffs as instructed every 4 hours as needed for wheezing/shortness of breath (chest tightness or cough, use with spacer. Can use 15 min pre-exercise). hyoscyamine (LEVSIN) 0.125 mg tablet Take 2 tablets by mouth every 6 hours as needed (cramping, diarrhea). cetirizine (ZYRTEC) 10 mg tablet Take 1 tablet by mouth once daily as needed for cold/allergy symptoms. THERAPEUTIC MULTIVITAMIN TAB Take one(1) tablet daily. FAMILY HISTORY Problem Relation Age of Onset Hypertension Mother Lipids Mother Diabetes Father Cancer Father 70 Pancreatic Cancer Asthma Sister Ischemic Heart Disease Maternal Grandfather Pancreatic Cancer Paternal Aunt 80 - 89 Social History Tobacco Use Smoking status: Never Smokeless tobacco: Never Vaping Use Vaping status: Never Used Substance Use Topics Alcohol use: Yes Comment: 1-2 per week Drug use: No BP 113/83 Pulse 86 Temp 36.7 ?C (98 ?F) Resp 20 Wt 93.4 kg (205 lb 14.6 oz) SpO2 96% BMI 28.72 kg/m? Review of Systems Constitutional: Positive for malaise/fatigue. Negative for chills and fever. HENT: Positive for congestion. Negative for ear discharge, ear pain, sinus pain and sore throat. Eyes: Negative for blurred vision, pain, discharge and redness. Respiratory: Positive for cough, shortness of breath and wheezing. Negative for hemoptysis, sputum production and stridor. Cardiovascular: Negative for chest pain. Gastrointestinal: Negative for abdominal pain, diarrhea, nausea and vomiting. Musculoskeletal: Positive for myalgias. Skin: Negative for itching and rash. Neurological: Negative for dizziness and headaches. Objective Physical Exam Constitutional: General: He is not in acute distress. Appearance: He is not diaphoretic. HENT: Head: Normocephalic. Jaw: No trismus, tenderness, swelling or pain on movement. Nose: Congestion present. Mouth/Throat: Mouth: Mucous membranes are moist. Pharynx: Oropharynx is clear. Uvula midline. No pharyngeal swelling, oropharyngeal exudate, posterior oropharyngeal erythema or uvula swelling. Eyes: Conjunctiva/sclera: Conjunctivae normal. Pupils: Pupils are equal, round, and reactive to light. Cardiovascular: Rate and Rhythm: Normal rate and regular rhythm. Heart sounds: Normal heart sounds. Pulmonary: Effort: Pulmonary effort is normal. No tachypnea, accessory muscle usage or respiratory distress. Breath sounds: No stridor. Rhonchi present. No wheezing or rales. Abdominal: (more content not included)... [facility] X[facility] CHEST 2V FRONTAL/LATon XR CHEST 2V FRONTAL/LAT * * *Final Report* * * DATE OF EXAM: Jul 27 2024 11:08AM WOX [id number] - XR CHEST 2V FRONTAL/LAT / PROCEDURE REASON: Acute cough * * * * Physician Interpretation * * * * EXAMINATION: CHEST RADIOGRAPH (2 VIEW FRONTAL and LATERAL) CLINICAL HISTORY: Acute cough MQ: XC2_6 EXAM DATE/TIME: 07/27/2024 11:08 AM COMPARISON: 06/23/2023 RESULT: Lines, tubes, and devices: None. Lungs and pleura: Improved bilaterally. No persistent pleural fluid. Focus of persistent atelectasis and/or consolidation in the right middle lobe. Upper lungs are clear. No pneumothorax Cardiomediastinal silhouette: Normal cardiomediastinal silhouette. Bones and soft tissues: Unremarkable. IMPRESSION: Improved bilaterally. No persistent pleural fluid. Focus of persistent atelectasis and/or consolidation in the right middle lobe Continued follow up to document complete resolution in the right middle lobe is recommended. Photographer Motion Picture: KRISTIAN Transcribe Date/Time: Jul 27 2024 11:30A Dictated by : DERIAN URIBE MD This examination was interpreted and the report reviewed and electronically signed by: DERIAN URIBE MD on Jul 27 2024 11:33AM EST [id number] Normal [facility] XR Chest PA and Lateralon IMPRESSION: Improved bilaterally. No persistent pleural fluid. Focus of persistent atelectasis and/or consolidation in the right middle lobe Continued follow up to document complete resolution in the right middle lobe is recommended. Photographer Motion Picture: PSCB Transcribe Date/Time: Jul 27 2024 11:30A Dictated by : DERIAN URIBE MD This examination was interpreted and the report reviewed and electronically signed by: DERIAN URIBE MD on Jul 27 2024 11:33AM EST DIVISION OF RADIOLOGY * * *Final Report* * * DATE OF EXAM: Jul 27 2024 11:08AM WOX [id number] - XR CHEST 2V FRONTAL/LAT / PROCEDURE REASON: Acute cough * * * * Physician Interpretation * * * * EXAMINATION: CHEST RADIOGRAPH (2 VIEW FRONTAL & LATERAL) CLINICAL HISTORY: Acute cough MQ: XC2_6 EXAM DATE/TIME: 07/27/2024 11:08 AM COMPARISON: 06/23/2023 RESULT: Lines, tubes, and devices: None. Lungs and pleura: Improved bilaterally. No persistent pleural fluid. Focus of persistent atelectasis and/or consolidation in the right middle lobe. Upper lungs are clear. No pneumothorax Cardiomediastinal silhouette: Normal cardiomediastinal silhouette. Bones and soft tissues: Unremarkable. DIVISION OF RADIOLOGY Provider, Marleni Bobo [facility] - 07/27/2024 * * *Final Report* * * DATE OF EXAM: Jul 27 2024 11:08AM WOX 5291 - XR CHEST 2V FRONTAL/LAT / PROCEDURE REASON: Acute cough * * * * Physician Interpretation * * * * EXAMINATION: CHEST RADIOGRAPH (2 VIEW FRONTAL & LATERAL) CLINICAL HISTORY: Acute cough MQ: XC2_6 EXAM DATE/TIME: 07/27/2024 11:08 AM COMPARISON: 06/23/2023 RESULT: Lines, tubes, and devices: None. Lungs and pleura: Improved bilaterally. No persistent pleural fluid. Focus of persistent atelectasis and/or consolidation in the right middle lobe. Upper lungs are clear. No pneumothorax Cardiomediastinal silhouette: Normal cardiomediastinal silhouette. Bones and soft tissues: Unremarkable. IMPRESSION IMPRESSION: Improved bilaterally. No persistent pleural fluid. Focus of persistent atelectasis and/or consolidation in the right middle lobe Continued follow up to document complete resolution in the right middle lobe is recommended. Photographer Motion Picture: [email or web address] Transcribe Date/Time: Jul 27 2024 11:30A Dictated by : DERIAN URIBE MD This examination was interpreted and the report reviewed and electronically signed by: DERIAN URIBE MD on Jul 27 2024 11:33AM EST [facility] Radiology Study observation (narrative) [facility] XR Chest PA and LateralOrder ed By: [facility] Provider on 07-27-2024 [facility] Amylase SerPl-cCncon -15-2 025 Amylase [Catalytic activity/Vol] 43 U/L Normal 30-104 [facility] Comment on above: Order Comment: Speci men Type: BLOOD SPECIMENOrdering Facility: [facility] Address: [address] [place] [address] Performed By: #### 3 040-3, 1798-8 ####[facility] LABCLIA [id number] [place] [address] [place] Hepatic function 2000 panelo n 07-11-2024 Albumin [Mass/Vol] 4.3 g/dL Normal 3.9-4.9 [facility] Comment on above: Order Comment: Speci men Type: BLOOD SPECIMENOrdering Facility: [facility] Address: [address] [place] [address] Performed By: #### 2 4325-3 ####[facility] LISA MILLTOWNCLIA [id number] [place] [address] [place] ALP [Catalytic activity/Vol] 99 U/L Normal 38-113 [facility] Comment on above: Order Comment: Speci men Type: BLOOD SPECIMENOrdering Facility: [facility] Address: [address] [place] [address] Performed By: #### 2 4325-3 ####[facility] MILLTOWNCLIA [id number] [place] [address] [place] ALT [Catalytic activity/Vol] 32 U/L Normal 10-54 [facility] Comment on above: Order Comment: Speci men Type: BLOOD SPECIMENOrdering Facility: [facility] Address: [address] [place] [address] Performed By: #### 2 4325-3 ####[facility] LISA MILLTOWNCLIA [id number] [place] [address] [place] AST [Catalytic activity/Vol] 19 U/L Normal 14-40 [facility] Comment on above: Order Comment: Speci men Type: BLOOD SPECIMENOrdering Facility: [facility] Address: [address] [place] [address] Performed By: #### 2 4325-3 ####[facility] LISA MILLTOWNCLIA [id number] [place] [address] [place] Bilirubin [Mass/Vol] 0.5 mg/dL Normal 0.2-1.3 [facility] Comment on above: Order Comment: Speci men Type: BLOOD SPECIMENOrdering Facility: [facility] Address: [address] [place] [address] Performed By: #### 2 4325-3 ####[facility] [id number] [place] [address] [place] Bilirubin.conjugated [Mass/Vol] 0.1 mg/dL Normal <0.3 [facility] Comment on above: Order Comment: Edgardo xavier Type: BLOOD SPECIMENOrdering Facility: [facility] Address: [address] [place] [address] Performed By: #### 2 4325-3 ####[facility] [id number] [place] [address] [place] Protein [Mass/Vol] 7.0 g/dL Normal 6.3-8.0 [facility] Comment on above: Order Comment: Edgardo xavier Type: BLOOD SPECIMENOrdering Facility: [facility] Address: [address] [place] [address] Performed By: #### 2 4325-3 ####[facility]ELDLI [id number] [place] [address] [place] Lipase SerPl-cCncon 07-12-19 25 Lipase [Catalytic activity/Vol] 51 U/L Normal 16-61 [facility] Comment on above: Order Comment: Tonyi men Type: BLOOD SPECIMENOrdering Facility: [facility] Address: [address] [place] [address] Performed By: #### 3 040-3, 1798-8 ####[facility] LABCLIA [id number] [place] [address] [place] Amylase SerPl-cCncon 025 Amylase [Catalytic activity/Vol] 72 U/L Normal 30-104 [facility] Comment on above: Order Comment: Speci men Type: BLOOD SPECIMENOrdering Facility: [facility] Address: [address] [place] [address] Performed By: #### 1 798-8, 3040-3 ####[facility] LABCLIA [id number] [address] [place] CBC W Auto Differential pane l (Bld)on 07-06-2024 Basophils (Bld) [#/Vol] 0.05 10*3/uL Normal <0.11 [facility] Comment on above: Order Comment: Speci men Type: BLOOD SPECIMENOrdering Facility: [facility] Address: [address] [place] [address] Performed By: #### 5 7021-8 ####[facility] MILLTOWNCLIA [id number] [place] [address] [place] Basophils/100 WBC (Bld) 0.7 % Normal [facility] Comment on above: Order Comment: Speci men Type: BLOOD SPECIMENOrdering Facility: [facility] Address: [address] [place] [address] Performed By: #### 5 7021-8 ####[facility] MILLTOWNCLIA [id number] [place] [address] [place] Differential cell count method Nom (Bld) Auto Normal [facility] Comment on above: Order Comment: Speci men Type: BLOOD SPECIMENOrdering Facility: [facility] Address: [address] [place] [address] Performed By: #### 5 7021-8 ####[facility] MILLTOWNCLIA [id number] [place] [address] [place] Eosinophils (Bld) [#/Vol] 0.33 10*3/uL Normal <0.46 [facility] Comment on above: Order Comment: Speci men Type: BLOOD SPECIMENOrdering Facility: [facility] Address: [address] [place] [address] Performed By: #### 5 7021-8 ####[facility] YAMININCAMPARO [id number] [place] [address] [place] Eosinophils/100 WBC (Bld) 4.7 % Normal [facility] Comment on above: Order Comment: Speci men Type: BLOOD SPECIMENOrdering Facility: [facility] Address: [address] [place] [address] Performed By: #### 5 7021-8 ####[facility] ORANGECELIO [id number] [place] [address] [place] Erythrocyte distribution width (RBC) [Ratio] 12.5 % Normal 11.5-15.0 [facility] Comment on above: Order Comment: Speci men Type: BLOOD SPECIMENOrdering Facility: [facility] Address: [address] [place] [address] Performed By: #### 5 7021-8 ####[facility] ORANGESARAHLIA [id number] [place] [address] [place] Hematocrit (Bld) [Volume fraction] 42.0 % Normal 39.0-51.0 [facility] Comment on above: Order Comment: Speci men Type: BLOOD SPECIMENOrdering Facility: [facility] Address: [address] [place] [address] Performed By: #### 5 7021-8 ####[facility] ORANGETHOMASA [id number] [place] [address] [place] Hemoglobin (Bld) [Mass/Vol] 15.0 g/dL Normal 13.0-17.0 [facility] Comment on above: Order Comment: Speci men Type: BLOOD SPECIMENOrdering Facility: [facility] Address: [address] [place] [address] Performed By: #### 5 7021-8 ####[facility] MILLTOWNCLIA [id number] [place] [address] [place] Immature granulocytes (Bld) [#/Vol] 10*3/uL Normal <0.10 [facility] Comment on above: Order Comment: Speci men Type: BLOOD SPECIMENOrdering Facility: [facility] Address: [address] [place] [address] Performed By: #### 5 7021-8 ####[facility] MILLTOWNCLIA [id number] [place] [address] [place] Immature granulocytes/100 WBC (Bld) 0.1 % Normal [facility] Comment on above: Order Comment: Speci men Type: BLOOD SPECIMENOrdering Facility: [facility] Address: [address] [place] [address] Performed By: #### 5 7021-8 ####[facility]AW[facility]CL[facility] [id number] [place] [address] [place] Lymphocytes (Bld) [#/Vol] 2.49 10*3/uL Normal 1.00-4.00 [facility] Comment on above: Order Comment: Speci men Type: BLOOD SPECIMENOrdering Facility: [facility] Address: [address] [place] [address] Performed By: #### 5 7021-8 ####[facility] MILLTOWNCLIA [id number] [place] [address] [place] Lymphocytes/100 WBC (Bld) 35.8 % Normal [facility] Comment on above: Order Comment: Speci men Type: BLOOD SPECIMENOrdering Facility: [facility] Address: [address] [place] [address] Performed By: #### 5 7021-8 ####[facility] MILLTOWNCLIA [id number] [place] [address] [place] MCH (RBC) [Entitic mass] 30.3 pg Normal 26.0-34.0 [facility] Comment on above: Order Comment: Speci men Type: BLOOD SPECIMENOrdering Facility: [facility] Address: [address] [place] [address] Performed By: #### 5 7021-8 ####[facility] ORANGECELIO [id number] [address] MCHC (RBC) [Mass/Vol] 35.7 g/dL Normal 30.5-36.0 [facility] Comment on above: Order Comment: Speci men Type: BLOOD SPECIMENOrdering Facility: [facility] Address: [address] [place] [address] Performed By: #### 5 7021-8 ####[facility] ORANGECELOI [id number] [address] [place] MCV (RBC) [Entitic vol] 84.8 fL Normal 80.0-100.0 [facility] Comment on above: Order Comment: Speci men Type: BLOOD SPECIMENOrdering Facility: [facility] Address: [address] [place] [address] Performed By: #### 5 7021-8 ####[facility] [id number] [place] [address] [place] Monocytes (Bld) [#/Vol] 0.55 10*3/uL Normal <0.87 [facility] Comment on above: Order Comment: Speci men Type: BLOOD SPECIMENOrdering Facility: [facility] Address: [address] [place] [address] Performed By: #### 5 7021-8 ####[facility] ORANGETHOMAS [id number] [place] [address] [place] Monocytes/100 WBC (Bld) 7.9 % Normal [facility] Comment on above: Order Comment: Speci men Type: BLOOD SPECIMENOrdering Facility: [facility] Address: [address] [place] [address] Performed By: #### 5 7021-8 ####[facility]FIELDLIA [id number] [place] [address] [place] Neutrophils (Bld) [#/Vol] 3.53 10*3/uL Normal 1.45-7.50 [facility] Comment on above: Order Comment: Speci men Type: BLOOD SPECIMENOrdering Facility: [facility] Address: [address] [place] [address] Performed By: #### 5 7021-8 ####[facility] [id number] [place] [address] [place] Neutrophils/100 WBC (Bld) 50.8 % Normal [facility] Comment on above: Order Comment: Speci men Type: BLOOD SPECIMENOrdering Facility: [facility] Address: [address] [place] [address] Performed By: #### 5 7021-8 ####[facility] [id number] [place] [address] [place] Nucleated RBC (Bld) [#/Vol] 10*3/uL Normal <0.01 [facility] Comment on above: Order Comment: Speci men Type: BLOOD SPECIMENOrdering Facility: [facility] Address: [address] [place] [address] Performed By: #### 5 7021-8 ####[facility] [id number] [place] [address] [place] Nucleated RBC/100 WBC (Bld) [Ratio] 0.0 /100 WBC Normal [facility] Comment on above: Order Comment: Speci men Type: BLOOD SPECIMENOrdering Facility: [facility] Address: [address] [place] [address] Performed By: #### 5 7021-8 ####[facility] CELINAA [id number] [place] [address] [place] Platelet mean volume (Bld) [Entitic vol] 9.1 fL Normal 9.0-12.7 [facility] Comment on above: Order Comment: Speci men Type: BLOOD SPECIMENOrdering Facility: [facility] Address: [address] [place] [address] Performed By: #### 5 7021-8 ####[facility] DAKOTAH [id number] [place] [address] [place] Platelets (Bld) [#/Vol] 221 10*3/uL Normal 150-400 [facility] Comment on above: Order Comment: Speci men Type: BLOOD SPECIMENOrdering Facility: [facility] Address: [address] [place] [address] Performed By: #### 5 7021-8 ####[facility] FUDAAUSTINTHOMASA [id number] [place] [address] [place] RBC (Bld) [#/Vol] 4.95 10*6/uL Normal 4.20-6.00 [facility] Comment on above: Order Comment: Speci men Type: BLOOD SPECIMENOrdering Facility: [facility] Address: [address] [place] [address] Performed By: #### 5 7021-8 ####[facility] ORANGESARAHLIA [id number] [place] [address] [place] WBC (Bld) [#/Vol] 6.96 10*3/uL Normal 3.70-11.00 [facility] Comment on above: Order Comment: Speci men Type: BLOOD SPECIMENOrdering Facility: [facility] Address: [address] [place] [address] Performed By: #### 5 7021-8 ####[facility] MILLTOWNCLIA [id number] [place] [address] [place] Comprehensive metabolic 2000 panelon 07-06-2024 Albumin [Mass/Vol] 4.2 g/dL Normal 3.9-4.9 [facility] Comment on above: Order Comment: Speci men Type: BLOOD SPECIMENOrdering Facility: [facility] Address: [address] [place] [address] Performed By: #### 2 4323-8 ####[facility] MILLTOWNCLIA [id number] [place] [address] [place] ALP [Catalytic activity/Vol] 94 U/L Normal 38-113 [facility] Comment on above: Order Comment: Speci men Type: BLOOD SPECIMENOrdering Facility: [facility] Address: [address] [place] [address] Performed By: #### 2 4323-8 ####[facility]CL[facility] [id number] [place] [address] [place] ALT [Catalytic activity/Vol] 30 U/L Normal 10-54 [facility] Comment on above: Order Comment: Speci men Type: BLOOD SPECIMENOrdering Facility: [facility] Address: [address] [place] [address] Performed By: #### 2 4323-8 ####[facility] MILLTOWNCLIA [id number] [place] [address] [place] Anion gap [Moles/Vol] 11 mmol/L Normal 8-15 [facility] Comment on above: Order Comment: Speci men Type: BLOOD SPECIMENOrdering Facility: [facility] Address: [address] [place] [address] Performed By: #### 2 4323-8 ####[facility]ALAWNCL[facility] [id number] [place] [address] [place] AST [Catalytic activity/Vol] 15 U/L Normal 14-40 [facility] Comment on above: Order Comment: Speci men Type: BLOOD SPECIMENOrdering Facility: [facility] Address: [address] [place] [address] Performed By: #### 2 4323-8 ####[facility] CHARLOTTETOWNCLIA [id number] [place] [address] [place] Bilirubin [Mass/Vol] 0.4 mg/dL Normal 0.2-1.3 [facility] Comment on above: Order Comment: Speci men Type: BLOOD SPECIMENOrdering Facility: [facility] Address: [address] [place] [address] Performed By: #### 2 4323-8 ####[facility] OCALAWSARAHL[facility] [id number] [place] [address] [place] Calcium [Mass/Vol] 9.4 mg/dL Normal 8.5-10.2 [facility] Comment on above: Order Comment: Speci men Type: BLOOD SPECIMENOrdering Facility: [facility] Address: [address] [place], [place] [address] Performed By: #### 2 4323-8 ####[facility] [id number] [place] [address] [place] Chloride [Moles/Vol] 103 mmol/L Normal 98-107 [facility] Comment on above: Order Comment: Speci men Type: BLOOD SPECIMENOrdering Facility: [facility] Address: [address] [place] [address] Performed By: #### 2 4323-8 ####[facility] [id number] [place] [address] [place] CO2 [Moles/Vol] 26 mmol/L Normal 22-30 [facility] Comment on above: Order Comment: Speci men Type: BLOOD SPECIMENOrdering Facility: [facility] Address: [address] [place] [address] Performed By: #### 2 4323-8 ####[facility] [id number] [place] [address] [place] Creatinine [Mass/Vol] 1.15 mg/dL Normal 0.73-1.22 [facility] Comment on above: Order Comment: Speci men Type: BLOOD SPECIMENOrdering Facility: [facility] Address: [address] [place] [address] Performed By: #### 2 4323-8 ####[facility] [id number] [place] [address] [place] Creatinine and Glomerular filtration rate.predicted panel (S/P/Bld) 77 mL/min/1.73m??? Normal >=60 [facility] Comment on above: Order Comment: Speci men Type: BLOOD SPECIMENOrdering Facility: [facility] Address: [address] [place] [address] Result Comment: Aviva mated Glomerular Filtration Rate (eGFR) is calculated using the 2020 CKD-EPI creatinine equation. This equation utilizes serum creatinine, sex, and age as parameters. The creatinine assay has traceable calibration to isotope dilution-mass spectrometry. Refer to KDIGO guidelines for clinical interpretation. In patients with unstable renal function, e.g. those with acute kidney injury, the eGFR may not accurately reflect actual GFR. Performed By: #### 2 4323-8 ####[facility] [id number] [place] [address] [place] Glucose [Mass/Vol] 112 mg/dL High 74-99 [facility] Comment on above: Order Comment: Speci men Type: BLOOD SPECIMENOrdering Facility: [facility] Address: [address] [place] [address] Result Comment: The [place] Diabetes Association (ADA) provides guidance for cutoff values for fasting glucose and random glucose. The ADA defines fasting as no caloric intake for at least 8 hours. Fasting plasma glucose results between 100 to 125 mg/dL indicate increased risk for diabetes (prediabetes). Fasting plasma glucose results greater than or equal to 126 mg/dL meet the criteria for diagnosis of diabetes. In the absence of unequivocal hyperglycemia, results should be confirmed by repeat testing. In a patient with classic symptoms of hyperglycemia or hyperglycemic crisis, random plasma glucose results greater than or equal to 200 mg/dL meet the criteria for diagnosis of diabetes. Reference: Standards of Medical Care in Diabetes 2016, [place] Diabetes Association. Diabetes Care. 2016.39(Suppl 1). Performed By: #### 2 4323-8 ####[facility] [id number] [place] [address] [place] Potassium [Moles/Vol] 4.1 mmol/L Normal 3.7-5.1 [facility] Comment on above: Order Comment: Edgardo xavier Type: BLOOD SPECIMENOrdering Facility: [facility] Address: [address] [place] [address] Performed By: #### 2 4323-8 ####[facility] [id number] [place] [address] [place] Protein [Mass/Vol] 6.8 g/dL Normal 6.3-8.0 [facility] Comment on above: Order Comment: Edgardo xavier Type: BLOOD SPECIMENOrdering Facility: [facility] Address: [address] [place] [address] Performed By: #### 2 4323-8 ####[facility] [id number] [place] [address] [place] Sodium [Moles/Vol] 140 mmol/L Normal 136-144 [facility] Comment on above: Order Comment: Edgardo xavier Type: BLOOD SPECIMENOrdering Facility: [facility] Address: [address] [place] [address] Performed By: #### 2 4323-8 ####[facility] [id number] [place] [address] [place] Urea nitrogen [Mass/Vol] 13 mg/dL Normal 9-24 [facility] Comment on above: Order Comment: Speci duc Type: BLOOD SPECIMENOrdering Facility: [facility] Address: [address] [place] [address] Performed By: #### 2 4323-8 ####[facility] LISA MILLTOWNCLIA [id number] [place] [address] [place] ESR Westergren method (Bld) [Velocity]on 07-06-2024 ESR (Bld) [Velocity] 2 mm/h Normal 0-15 [facility] Comment on above: Order Comment: Edgardo xavier Type: BLOOD SPECIMENOrdering Facility: [facility] Address: [address] [place] [address] Performed By: #### 4 537-7 ####[facility] LABCLIA [id number] [place] [address] [place] Lipase SerPl-cCncon 07-07-19 25 Lipase [Catalytic activity/Vol] 109 U/L High 16-61 [facility] Comment on above: Order Comment: Edgardo xavier Type: BLOOD SPECIMENOrdering Facility: [facility] Address: [address] [place] [address] Performed By: #### 1 798-8, 3040-3 ####[facility] LABCLIA [id number] [place] [address] [place] XR Chest PA and Lateralon IMPRESSION: No acute radiographic abnormality. Photographer Motion Picture: PSCB Transcribe Date/Time: Jun 23 2023 12:22P Dictated by : RUBI ALARCON MD This examination was interpreted and the report reviewed and electronically signed by: RUBI ALARCON MD on Jun 23 2023 12:22PM [facility] DIVISION OF RADIOLOGY * * *Final Report* * * DATE OF EXAM: Jun 23 2023 12:15PM WOX [id number] - XR CHEST 2V FRONTAL/LAT / PROCEDURE REASON: multiple diagnoses * * * * Physician Interpretation * * * * EXAMINATION: CHEST RADIOGRAPH (2 VIEW FRONTAL & LATERAL) CLINICAL HISTORY: Acute cough Shortness of breath MQ: XC2_6 EXAM DATE/TIME: 06/23/2023 12:15 PM COMPARISON: No relevant prior studies available. RESULT: Lines, tubes, and devices: None. Lungs and pleura: No consolidation. No lung mass. No pleural effusion. No pneumothorax. Cardiomediastinal silhouette: Normal cardiomediastinal silhouette. Bones and soft tissues: Unremarkable. DIVISION OF RADIOLOGY Provider, [facility] - 06/23/2023 * * *Final Report* * * DATE OF EXAM: Jun 23 2023 12:15PM WOX [id number] - XR CHEST 2V FRONTAL/LAT / PROCEDURE REASON: multiple diagnoses * * * * Physician Interpretation * * * * EXAMINATION: CHEST RADIOGRAPH (2 VIEW FRONTAL & LATERAL) CLINICAL HISTORY: Acute cough Shortness of breath MQ: XC2_6 EXAM DATE/TIME: 06/23/2023 12:15 PM COMPARISON: No relevant prior studies available. RESULT: Lines, tubes, and devices: None. Lungs and pleura: No consolidation. No lung mass. No pleural effusion. No pneumothorax. Cardiomediastinal silhouette: Normal cardiomediastinal silhouette. Bones and soft tissues: Unremarkable. IMPRESSION IMPRESSION: No acute radiographic abnormality. Photographer Motion Picture: KRISTIAN Transcribe Date/Time: Jun 23 2023 12:22P Dictated by : RUBI ALARCON MD This examination was interpreted and the report reviewed and electronically signed by: RUBI ALARCON MD on Jun 23 2023 12:22PM EST [facility] Radiology Study observation (narrative) [facility] XR Chest PA and LateralOrder ed By: [facility] Provider on 06-23-2023 [facility] HEMOGLOBIN A1C (POC)on 11-10 HbA1c (Bld) [Mass fraction] 5.2 % 4.2 - 5.6 % [facility] 3 Viewson IMPRESSION: 1. No acute fracture or malalignment of the lumbar spine Photographer Motion Picture: KRISTIAN Transcribe Date/Time: Jul 11 2020 3:11P Dictated by : DAVID STEELE MD This examination was interpreted and the report reviewed and electronically signed by: DAVID STEELE MD on Jul 11 2020 3:13PM [facility] DIVISION OF RADIOLOGY * * *Final Report* * * DATE OF EXAM: Jul 11 2020 3:09PM WOX [id number] - XR LUMBAR 3V AP/LAT/L5-S1 / PROCEDURE REASON: Back pain of lumbar region with sciatica * * * * Physician Interpretation * * * * LUMBAR SPINE X-RAY SERIES HISTORY: Back pain of lumbar region with sciatica TECHNIQUE: AP, Lateral, coned-down lateral COMPARISON: None available. RESULT: Alignment: No significant subluxation or scoliosis. Bones: Vertebral bodies and the other included bony structures are negative. Intervertebral discs: Moderate degenerative disc disease at L5-S1. Mild facet degenerative changes at L5-S1. Aortic atherosclerosis. DIVISION OF RADIOLOGY Provider, [facility] - 07/11/2020 * * *Final Report* * * DATE OF EXAM: Jul 11 2020 3:09PM WOX [id number] - XR LUMBAR 3V AP/LAT/L5-S1 / PROCEDURE REASON: Back pain of lumbar region with sciatica * * * * Physician Interpretation * * * * LUMBAR SPINE X-RAY SERIES HISTORY: Back pain of lumbar region with sciatica TECHNIQUE: AP, Lateral, coned-down lateral COMPARISON: None available. RESULT: Alignment: No significant subluxation or scoliosis. Bones: Vertebral bodies and the other included bony structures are negative. Intervertebral discs: Moderate degenerative disc disease at L5-S1. Mild facet degenerative changes at L5-S1. Aortic atherosclerosis. IMPRESSION IMPRESSION: 1. No acute fracture or malalignment of the lumbar spine Photographer Motion Picture: PSCB Transcribe Date/Time: Jul 11 2020 3:11P Dictated by : DAVID STEELE MD This examination was interpreted and the report reviewed and electronically signed by: DAVID STEELE MD on Jul 11 2020 3:13PM EST [facility] Radiology Study observation (narrative) [facility] Lumbar spine 3 ViewsOrder ed By: [facility] Provider on 07-11-2020 [facility] Vital Signs Date Time Vital Sign Value Performing Clinician Tory levine 07-27-2024 10:52-0400 Body mass index (BMI) [Ratio] 28.72 kg/m2 [facility] CLIENT SERVICES ANALYST.[employer] Work Phone: [facility] 07-27-2024 10:52-0400 Body temperature 98.01 [degF] [facility] CLIENT SERVICES ANALYST.[employer] Work Phone: [facility] 07-27-2024 10:52-0400 Body weight 93.4 kg [facility] CLIENT SERVICES ANALYST.[employer] Work Phone: [facility] 07-27-2024 10:52-0400 Diastolic blood pressure 83 mm[Hg] [facility] CLIENT SERVICES ANALYST.[employer] Work Phone: [facility] 07-27-2024 10:52-0400 Heart rate 86 /min [facility] CLIENT SERVICES ANALYST.[employer] Work Phone: [facility] 07-27-2024 10:52-0400 Respiratory rate 20 /min [facility] CLIENT SERVICES ANALYST.[employer] Work Phone: [facility] 07-27-2024 10:52-0400 SaO2% (BldA) [Mass fraction] 96 % [facility] CLIENT SERVICES ANALYST.[employer] Work Phone: [facility] 07-27-2024 10:52-0400 Systolic blood pressure 113 mm[Hg] [facility] CLIENT SERVICES ANALYST.[employer] Work Phone: [facility] 08-17-2023 09:00-0400 Body height 180.3 cm Franc Coffman MD Work Phone: [facility] 08-17-2023 09:00-0400 Body mass index (BMI) [Ratio] 28.87 kg/m2 Franc Coffman MD Work Phone: [facility] 08-17-2023 09:00-0400 Body temperature 97.5 [degF] Franc Coffman MD Work Phone: [facility] 08-17-2023 09:00-0400 Body weight 93.89 kg Franc Coffman MD Work Phone: [facility] 08-17-2023 09:00-0400 Diastolic blood pressure 76 mm[Hg] Franc Coffman MD Work Phone: [facility] 08-17-2023 09:00-0400 Heart rate 68 /min Franc Coffman MD Work Phone: [facility] 08-17-2023 09:00-0400 Systolic blood pressure 122 mm[Hg] Franc Coffman MD Work Phone: [facility] 06-21-2023 07:23-0400 Body temperature 98.01 [degF] Arron Moomaw CLIENT SERVICES ANALYST.[employer] Work Phone: [facility] 06-21-2023 07:23-0400 Body weight 95.3 kg Arron Moomaw CLIENT SERVICES ANALYST.[employer] Work Phone: [facility] 06-21-2023 07:23-0400 Diastolic blood pressure 78 mm[Hg] Arron Moomaw CLIENT SERVICES ANALYST.[employer] Work Phone: [facility] 06-21-2023 07:23-0400 Heart rate 67 /min Arron Moomaw CLIENT SERVICES ANALYST.[employer] Work Phone: [facility] 06-21-2023 07:23-0400 Respiratory rate 16 /min Arron Moomaw CLIENT SERVICES ANALYST.[employer] Work Phone: [facility] 06-21-2023 07:23-0400 SaO2% (BldA) [Mass fraction] 95 % Arron Moomaw CLIENT SERVICES ANALYST.[employer] Work Phone: [facility] 06-21-2023 07:23-0400 Systolic blood pressure 128 mm[Hg] Arron Moomaw CLIENT SERVICES ANALYST.[employer] Work Phone: [facility] 02-12-2023 08:13-0500 Body weight 92.99 kg Maria Fernanda Older CLIENT SERVICES ANALYST.[employer] Work Phone: [facility] 02-12-2023 08:13-0500 Diastolic blood pressure 81 mm[Hg] Maria Fernanda Older CLIENT SERVICES ANALYST.[employer] Work Phone: [facility] 02-12-2023 08:13-0500 Heart rate 77 /min Maria Fernanda Older CLIENT SERVICES ANALYST.[employer] Work Phone: [facility] 02-12-2023 08:13-0500 Respiratory rate 16 /min Maria Fernanda Older CLIENT SERVICES ANALYST.[employer] Work Phone: [facility] 02-12-2023 08:13-0500 Systolic blood pressure 118 mm[Hg] Maria Fernanda Older CLIENT SERVICES ANALYST.[employer] Work Phone: [facility] 11-10-2022 08:02-0400 Body weight 92.99 kg Maria Fernanda Older CLIENT SERVICES ANALYST.[employer] Work Phone: [facility] 11-10-2022 08:02-0400 Diastolic blood pressure 86 mm[Hg] Maria Fernanda Older CLIENT SERVICES ANALYST.[employer] Work Phone: [facility] 11-10-2022 08:02-0400 Heart rate 71 /min Maria Fernanda Older CLIENT SERVICES ANALYST.[employer] Work Phone: [facility] 11-10-2022 08:02-0400 Respiratory rate 16 /min Maria Fernanda Older CLIENT SERVICES ANALYST.[employer] Work Phone: [facility] 11-10-2022 08:02-0400 Systolic blood pressure 127 mm[Hg] Maria Fernanda Older CLIENT SERVICES ANALYST.[employer]ER Work Phone: [facility] 08-10-2022 07:57-0400 Body weight 95.71 kg Maria Fernanda Older CLIENT SERVICES ANALYST.[employer] Work Phone: [facility] 08-10-2022 07:57-0400 Diastolic blood pressure 86 mm[Hg] Maria Fernanda Older CLIENT SERVICES ANALYST.[employer]ER Work Phone: [facility] 08-10-2022 07:57-0400 Heart rate 74 /min Maria Fernanda Older CLIENT SERVICES ANALYST.[employer]ER Work Phone: [facility] 08-10-2022 07:57-0400 Respiratory rate 14 /min Maria Fernanda Older CLIENT SERVICES ANALYST.[employer] Work Phone: [facility] 08-10-2022 07:57-0400 Systolic blood pressure 132 mm[Hg] Maria Fernanda Older CLIENT SERVICES ANALYST.[employer]ER Work Phone: [facility] 02-10-2022 09:08-0500 Body temperature 97.11 [degF] Franc Coffman MD Work Phone: [facility] 02-10-2022 09:08-0500 Body weight 95.25 kg Franc Coffman MD Work Phone: [facility] 02-10-2022 09:08-0500 Diastolic blood pressure 80 mm[Hg] Franc Coffman MD Work Phone: [facility] 02-10-2022 09:08-0500 Heart rate 76 /min Franc Coffman MD Work Phone: [facility] 02-10-2022 09:08-0500 Respiratory rate 20 /min Franc Coffman MD Work Phone: [facility] 02-10-2022 09:08-0500 Systolic blood pressure 120 mm[Hg] Franc Coffman MD Work Phone: [facility] 02-06-2022 11:19-0500 Body temperature 98.2 [degF] Harry Aleman MD Work Phone: [facility] 02-06-2022 11:19-0500 Body weight 95.8 kg Harry Aleman MD Work Phone: [facility] 02-06-2022 11:19-0500 Diastolic blood pressure 88 mm[Hg] Harry Aleman MD Work Phone: [facility] 02-06-2022 11:19-0500 Heart rate 85 /min Harry Aleman MD Work Phone: [facility] 02-06-2022 11:19-0500 Respiratory rate 16 /min Harry Aleman MD Work Phone: [facility] 02-06-2022 11:19-0500 SaO2% (BldA) [Mass fraction] 98 % Harry Aleman MD Work Phone: [facility] 02-06-2022 11:19-0500 Systolic blood pressure 136 mm[Hg] Harry Aleman MD Work Phone: [facility] 07-29-2021 11:29-0400 Diastolic blood pressure 80 mm[Hg] Maria Fernanda Older CLIENT SERVICES ANALYST.[employer]ER Work Phone: [facility] 07-29-2021 11:29-0400 Systolic blood pressure 126 mm[Hg] Maria Fernanda Older CLIENT SERVICES ANALYST.[employer]ER Work Phone: [facility] 07-29-2021 11:13-0400 Body height 180.3 cm Maria Fernanda Older CLIENT SERVICES ANALYST.[employer]KER Work Phone: [facility] 07-29-2021 11:130400 Body weight 92.53 kg Maria Fernanda Older CLIENT SERVICES ANALYST.[employer]ER Work Phone: [facility] 07-29-2021 11:13-0400 Heart rate 60 /min Maria Fernanda Older CLIENT SERVICES ANALYST.[employer]ER Work Phone: [facility] 07-29-2021 11:13-0400 Respiratory rate 12 /min Maria Fernanda Older CLIENT SERVICES ANALYST.[employer]ER Work Phone: [facility] 07-29-2021 11:130400 SaO2% (BldA) [Mass fraction] 98 % Maria Fernanda Older CLIENT SERVICES ANALYST.VA[employer]KER Work Phone: [facility] 06-24-2021 10:28-0400 Body height 182.9 cm Yovana Gasport PA-C Work Phone: [facility] 06-24-2021 10:28-0400 Body temperature 97 [degF] Yovana Gasport PA-C Work Phone: [facility] 06-24-2021 10:28-0400 Body weight 93.35 kg Yovana Caitlin PA-C Work Phone: [facility] 06-24-2021 10:28-0400 Diastolic blood pressure 86 mm[Hg] Yovana Gasport PA-C Work Phone: [facility] 06-24-2021 10:28-0400 Heart rate 60 /min Yovana Gasport PA-C Work Phone: [facility] 06-24-2021 10:28-0400 SaO2% (BldA) [Mass fraction] 99 % Yovana Tucker PA-C Work Phone: [facility] 06-24-2021 10:28-0400 Systolic blood pressure 132 mm[Hg] Yovana Tucker PA-C Work Phone: [facility] Encounters Encounter Date Encounter Type Care Provider Facility Start: 10-04-2024 End: 10-05-2024 ambulatory Franc Coffman MD Work Phone: [facility] [place] Start: 10-04-2024 End: 10-05-2024 Patient encounter procedure Franc Coffman MD Work Phone: [facility] [place] Comment on above: Referral Start: 09-28-2024 End: 11-28-2024 Follow-up encounter Payton Estevez Aisha [facility] Work Phone: [facility] Start: 09-27-2024 End: 09-27-2024 Follow-up encounter Franc Coffman MD Work Phone: [facility] [place] Start: 09-27-2024 ambulatory FRANC COFFMAN Faci lity:[facility] Start: 09-27-2024 End: 09-27-2024 Subsequent hospital visit by physician Christel [facility] [place] Work Phone: Radiology Comment on above: Abnormal chest x-ray [R93.89] Start: 09-24-2024 End: 11-24-2024 Follow-up encounter Franc Coffman MD Work Phone: [facility] [place] Start: 09-21-2024 End: 09-23-2024 Telephone encounter Franc Coffman MD Work Phone: [facility] [place] Comment on above: Orders Start: 09-21-2024 End: 09-21-2024 ambulatory MARY SANCHEZ Facility:[facility] Start: 09-14-2024 End: 09-15-2024 ambulatory FRANC COFFMAN Facility:[facility] Start: 08-25-2024 End: 09-19-2024 [facility] Work Phone: [facility]rology Start: 2024 End: 2024 Telemedicine consultation with patient Payton Glass [facility] Work Phone: [facility] Start: 2024 End: 2024 ambulatory Payton Glass [facility] Work Phone: [facility] Comment on above: Family history of pa ncreatic cancer Start: 08-17-2024 ambulatory FRANC COFFMAN Faci lity:[facility] Start: 08-17-2024 End: 08-17-2024 ambulatory FRANC COFFMAN Facility:[facility] Start: 08-17-2024 Encounter for genera l adult medical examination without abnormal findings FRANC COFFMAN [facility] Start: 08-16-2024 End: 08-16-2024 ambulatory MARIA FERNANDA OSEI Facility:[facility] Start: 08-15-2024 End: 08-15-2024 Telephone encounter Franc Coffman MD Work Phone: [facility] [place] Comment on above: Orders Start: 07-27-2024 End: 07-27-2024 Subsequent hospital visit by physician Christel [facility] [place] Work Phone: Radiology Comment on above: Acute cough [R05.1] Start: 07-27-2024 End: 07-27-2024 Office outpatient visit 25 minutes Ronald Gonsalves APRN.VAULT MAKER Work Phone: [facility] [place] [facility] Comment on above: Acute cough (Primary Dx); Community acquired pneumonia, unspecified laterality Start: 07-27-2024 ambulatory RONALD Spears lity:[facility] Start: 07-11-2024 End: 07-11-2024 ambulatory FRANC COFFMAN Facility:[facility] Start: 07-06-2024 End: 07-06-2024 ambulatory FRANC COFFMAN Facility:[facility] Start: 03-28-2024 End: 03-31-2024 Refill Susan Davila CLIENT SERVICES ANALYST.[employer]ER Work Phone: [facility] [place] Comment on above: Refill Request Start: 01-08-2024 End: 01-10-2024 Refill Susan Davila CLIENT SERVICES ANALYST.[employer] Work Phone: [facility] [place] Comment on above: Refill Request Start: 10-05-2023 Refill Maria Fernanda Everardo Romina toledo CLIENT SERVICES ANALYST.VAULT [employer]ER Work Phone: [facility] [place] Comment on above: Refill Request Start: 08-17-2023 Telephone encounter Franc mantilla MD Work Phone: [facility] [place] Start: 08-17-2023 End: 08-17-2023 Patient encounter procedure Franc Coffman MD Work Phone: [facility] [place] Comment on above: Encounter for annual physical exam (Primary Dx); Essential hypertension; Mild intermittent asthma without complication; Pure hyperglyceridemia; Irritable bowel syndrome with both constipation and diarrhea; Seasonal allergic rhinitis, unspecified trigger; Umbilical hernia without obstruction and without gangrene; Family history of pancreatic cancer Start: 06-23-2023 End: 06-23-2023 Subsequent hospital visit by physician Xr [facility] [place] Work Phone: Radiology Comment on above: Acute cough [R05.1] Start: 06-21-2023 End: 06-21-2023 Patient encounter procedure Arron Dick CLIENT SERVICES ANALYST.VA[employer]ER Work Phone: [facility] [place] [facility] Comment on above: Bacterial pneumonia (Primary Dx) Start: 02-21-2023 Refill Maria Fernanda Older CLIENT SERVICES ANALYST .[employer] Work Phone: [facility] [place] Comment on above: Refill Request Start: 02-18-2023 ambulatory Maria Fernanda Older CLIENT SERVICES ANALYST .[employer] Work Phone: [facility] [place] Comment on above: Medication lost in t ransit Start: 02-12-2023 End: 02-12-2023 Patient encounter procedure Maria Fernanda Older CLIENT SERVICES ANALYST.[employer]ULT [employer]KER Work Phone: [facility] [place] Comment on above: Essential hypertensi on (Primary Dx); Mild intermittent asthma without complication; Pure hyperglyceridemia; Impaired glucose metabolism; Encounter for immunization Start: 12-26-2022 Refill Maria Fernanda Older CLIENT SERVICES ANALYST .[employer] Work Phone: [facility] [place] Comment on above: Refill Request Start: 11-10-2022 End: 11-10-2022 Patient encounter procedure Maria Fernanda Older CLIENT SERVICES ANALYST.[employer]ER Work Phone: [facility] [place] Comment on above: Essential hypertensi on (Primary Dx); Pure hyperglyceridemia; Impaired glucose metabolism; Mild intermittent asthma without complication Start: 10-04-2022 Refill Franc issa MD Work Phone: [facility] [place] Comment on above: Refill Request Start: 08-10-2022 End: 08-10-2022 Patient encounter procedure Maria Fernanda Older CLIENT SERVICES ANALYST.VA[employer]KER Work Phone: [facility] [place] Comment on above: Left elbow pain (Marlene taylor Dx); Essential hypertension; Pure hyperglyceridemia; Mild intermittent asthma with acute exacerbation; Irritable bowel syndrome with both constipation and diarrhea; Seasonal allergic rhinitis, unspecified trigger; Encounter for immunization Start: 02-10-2022 End: 02-10-2022 Patient encounter procedure Franc Coffman MD Work Phone: [facility] [place] Comment on above: Mild intermittent as thma without complication (Primary Dx); Essential hypertension; Need for influenza vaccination; Pure hyperglyceridemia; Need for vaccination; Elevated alkaline phosphatase level Start: 02-06-2022 End: 02-06-2022 Patient encounter procedure Harry Aleman MD Work Phone: [facility] Comment on above: URI, acute (Primary Dx); Mild intermittent asthma with acute exacerbation Start: 02-05-2022 ambulatory Franc issa MD Work Phone: [facility] [place] Comment on above: Labs Start: 07-29-2021 End: 07-29-2021 Patient encounter procedure Maria Fernanda Older CLIENT SERVICES ANALYST.VAULT MAKER Work Phone: [facility] [place] Comment on above: Wellness examination (Primary Dx); Mild intermittent asthma without complication; Essential hypertension; Pure hyperglyceridemia; Seasonal allergic rhinitis, unspecified trigger Start: 07-29-2021 End: 07-29-2021 Patient encounter status Maria Fernanda Older CLIENT SERVICES ANALYST.VAULT MAKER Work Phone: [facility] [place] Start: 07-15-2021 ambulatory Maria Fernanda Older CLIENT SERVICES ANALYST .VAULT MAKER Work Phone: [facility] [place] Comment on above: Blood work Start: 07-15-2021 Patient encounter status Marai Fernanda Older CLIENT SERVICES ANALYST.VAULT MAKER Work Phone: [facility] [place] Start: 06-24-2021 End: 06-24-2021 Patient encounter procedure Yovana Tucker PA-C Work Phone: General Surgery Comment on above: Hyperplastic rectal polyp (Primary Dx) Start: 07-11-2020 End: 07-11-2020 Subsequent hospital visit by physician Xr [facility] Work Phone: Radiology Comment on above: Back pain of lumbar region with sciatica [M54.40] Start: 06-12-2013 End: 06-12-[address] [facility] Facility:[facility] Procedures Date Procedure Procedure Detail Performing Clinician Start: 09-27-2024 Radiologic exam ches t 2 views Franc Coffman MD Work Phone: Start: 08-17-2024 Adult depression screening assessment Payton Debenedictis [facility] Work Phone: Start: 08-16-2024 Lipid 1996 panel - S familia or Plasma Payton Debenedictis [facility] Work Phone: Start: 07-27-2024 Radiologic exam ches t 2 views Ronald Gonsalves CLIENT SERVICES ANALYST.VAULT MAKER Work Phone: Start: 08-17-2023 Adult depression screening assessment X[facility] [place] Work Phone: Start: 08-16-2023 Lipid 1996 panel - S familia or Plasma Franc Coffman MD Work Phone: Start: 06-23-2023 Radiologic exam ches t 2 views Maria Fernanda Osei CLIENT SERVICES ANALYST.VAULT MAKER Work Phone: Start: 02-12-2023 PFIZER-BIONTSeniorlink COVI D-19 VACCINE (2022- SEASON) AGE 12+ YR Maria Fernanda Older CLIENT SERVICES ANALYST.VAULT MAKER Work Phone: Start: 02-12-2023 INFLUENZA VACCINE, A GE 6 MO - 64 YR, QUADRIVALENT (AFLURIA, FLULAVAL, FLUZONE) Maria Fernanda Older CLIENT SERVICES ANALYST.VAULT MAKER Work Phone: Start: 11-10-2022 Hemoglobin A1c/Hemoglobin.total in Blood Maria Fernanda Older CLIENT SERVICES ANALYST.VAULT MAKER Work Phone: Start: 11-06-2022 Lipid 1996 panel - S familia or Plasma Maria Fernanda Older CLIENT SERVICES ANALYST.VAULT MAKER Work Phone: Start: 02-10-2022 INFLUENZA VACCINE QUADRIVALENT 6 MO - 64 YRS IM Franc Coffman MD Work Phone: Start: 07-29-2021 Adult depression screening assessment Maria Fernanda Older CLIENT SERVICES ANALYST.VAULT MAKER Work Phone: Start: 06-06-2021 Colonoscopy Yovana kaye PA-C Work Phone: Start: 07-25-2020 Adult depression screening assessment Yovana Tucker PA-C Work Phone: Start: 07-11-2020 Radex spine lumbosac ral 2/3 views Debby Smith PAReC Work Phone: Plan of Treatment Date Care Activity Detail Author Start: 08-10-2032 Urine microalbumin profile [facility] Start: 06-07-2031 Colonoscopy COLONOSCOPY [facility] Start: 06-07-2031 COLORECTAL CANCER SCREENING COLORECTAL CANCER SCREENING [facility] Start: 06-07-2031 Screening for malign ant neoplasm of colon [facility] Start: 08-16-2029 Lipid panel Lipid Screening [facility] Start: 08-15-2028 Lipid panel Lipid Screening [facility] Start: 11-07-2027 Lipid 1996 panel - Serum or Plasma Lipid Screening [facility] Start: 11-07-2027 Lipid panel Lipid Screening [facility] Start: 11-07-2027 LIPID SCREEN LIPID SCREEN [facility] Start: 08-17-2027 Diabetes Screening Diabetes Screenin [facility] Start: 08-08-2027 LIPID SCREEN LIPID SCREEN [facility] Start: 07-07-2027 Diabetes Screening Diabetes Screenin g [facility] Start: 02-06-2027 LIPID SCREEN LIPID SCREEN [facility] Start: 08-15-2026 Diabetes Screening Diabetes Screenin g [facility] Start: 07-24-2026 LIPID SCREEN LIPID SCREEN [facility] Start: 01-22-2026 LIPID SCREEN LIPID SCREEN [facility] Start: 11-10-2025 DIABETES SCREEN DIABETES SCREEN [facility] Start: 11-10-2025 Diabetes Screening Diabetes Screenin g [facility] Start: 08-17-2025 Annual PCP Team Production Machine Tender db Disease Visit Annual PCP Team Chronic Disease Visit [facility] Start: 08-17-2025 Anxiety Screening Anxiety Screening [facility] Start: 08-17-2025 Covid-19 Vaccine () Covid-19 Vaccine () [facility] Comment on above: Postponed from 11/27 (Declined at this time) Start: 08-17-2025 Depression Screening Depression Scre ening [facility] Start: 08-07-2025 DIABETES SCREEN DIABETES SCREEN [facility] Start: 02-21-2025 End: 02-21-2025 Patient encounter procedure [facility] [place] Comment on above: *1st attempt to resc hed - lm- 09/06 *2nd attempt - lm - 09/13 Start: 02-06-2025 DIABETES SCREEN DIABETES SCREEN [facility] Start: 11-27-2024 Influenza vaccination Influenza Vacc ine (#1) [facility] Start: 09-15-2024 End: 09-15-2024 Patient encounter procedure 09/15/2024 2:00 PM EDT Office Visit Neurology [address] [id number] Snoring [R06.83] Neurology Comment on above: Snoring [R06.83] Start: 2024 End: 11-23-2024 NVTA INVITAE HEREDITARY DIAGNOSTIC CANCER PANEL NVTA INVITAE HEREDITARY DIAGNOSTIC CANCER PANEL Lab Routine Family history of pancreatic cancer Expected: 2024, Expires: 11/23/2024 [facility] Work Phone: Comment on above: Expected: 2024 , Expires: 11/23/2024 Start: 08-17-2024 End: 08-17-2024 Patient encounter procedure 08/17/2024 8:00 AM EDT Office Visit Internal [facility] [place] [address] [place] [address] Franc Coffman MD [address] [place] [address] yearly [facility] [place] Comment on above: yearly Start: 08-16-2024 Annual PCP Team Production Machine Tender db Disease Visit Annual PCP Team Chronic Disease Visit [facility] Start: 08-16-2024 Anxiety Screening Anxiety Screening [facility] Start: 08-16-2024 BP Controlled (<130/80) BP Controlle d (<130/80) [facility] Start: 08-16-2024 Depression Screening Depression Scre ening [facility] Start: 08-15-2024 End: 11-14-2024 Hemoglobin A1c in Blood HEMOGLOBIN A1C Lab Routine Pure hyperglyceridemia Expected: 08/15/2024, Expires: 11/14/2024 [facility] Comment on above: Expected: 08/15/2024 , Expires: 11/14/2024 Start: 08-15-2024 End: 11-14-2024 Lipid 1996 panel - Serum or Plasma LIPID PANEL, FASTING Lab Routine Essential hypertension Impaired glucose metabolism Expected: 08/15/2024, Expires: 11/14/2024 [facility] Work Phone: Comment on above: Expected: 08/15/2024 , Expires: 11/14/2024 Start: 07-24-2024 DIABETES SCREEN DIABETES SCREEN [facility] Start: 06-20-2024 BP Controlled (<130/80) BP Controlle d (<130/80) [facility] Start: 02-13-2024 Annual PCP Team Production Machine Tender db Disease Visit Annual PCP Team Chronic Disease Visit [facility] Start: 02-13-2024 Hepatitis B Vaccine (1 of 3 - 19+ 3-dose series) Hepatitis B Vaccine (1 of 3 - 19+ 3-dose series) [facility] Comment on above: Postponed from 08/23 (Declined at this time) Start: 02-13-2024 Hepatitis B Vaccine (1 of 3 - 3-dose series) Hepatitis B Vaccine (1 of 3 - 3-dose series) [facility] Comment on above: Postponed from 08/23 (Declined at this time) Start: 01-23-2024 DIABETES SCREEN DIABETES SCREEN [facility] Start: 11-28-2023 Covid-19 Vaccine ( season) Covid-19 Vaccine ( season) [facility] Start: 11-28-2023 Influenza vaccination Influenza Vacc ine (#1) [facility] Start: 11-11-2023 ANNUAL PCP TEAM SWEEPER DRIVER DB DISEASE VISIT ANNUAL PCP TEAM CHRONIC DISEASE VISIT [facility] Start: 08-11-2023 ANNUAL PCP TEAM SWEEPER DRIVER DB DISEASE VISIT ANNUAL PCP TEAM CHRONIC DISEASE VISIT [facility] Start: 07-28-2023 End: 10-27-2023 Comprehensive metabolic 2000 panel - Serum or Plasma COMP METABOLIC PANEL Lab Routine Essential hypertension Pure hyperglyceridemia Expected: 07/28/2023 (Approximate), Expires: 10/27/2023 [facility] Work Phone: Comment on above: Expected: 07/28/2023 (Approximate), Expires: 10/27/2023 Start: 07-28-2023 End: 10-27-2023 Hemoglobin A1c in Blood HGB A1C Lab Routine Impaired glucose metabolism Expected: 07/28/2023 (Approximate), Expires: 10/27/2023 [facility] Work Phone: Comment on above: Expected: 07/28/2023 (Approximate), Expires: 10/27/2023 Start: 07-28-2023 End: 10-27-2023 Lipid 1996 panel - Serum or Plasma LIPID PANEL BASIC Lab Routine Pure hyperglyceridemia Expected: 07/28/2023 (Approximate), Expires: 10/27/2023 [facility] Work Phone: Comment on above: Expected: 07/28/2023 (Approximate), Expires: 10/27/2023 Start: 06-18-2023 Shingrix Vaccine (2 of 2) Shingrix Vaccine (2 of 2) [facility] Start: 03-29-2023 Depression Assessment Depression Ass essment [facility] Start: 02-10-2023 ANNUAL PCP TEAM SWEEPER DRIVER DB DISEASE VISIT ANNUAL PCP TEAM CHRONIC DISEASE VISIT [facility] Start: 02-10-2023 BP CONTROLLED (<130/80) BP CONTROLLE D (<130/80) [facility] Start: 02-10-2023 COVID-19 VACCINE (4 - Booster for Moderna series) COVID-19 VACCINE (4 - Booster for Moderna series) [facility] Comment on above: Postponed from 04/25 (Declined at this time) Start: 11-27-2022 Influenza vaccination C [facility] Start: 11-10-2022 End: 01-10-2023 Lipid 1996 panel - Serum or Plasma LIPID PANEL BASIC Lab Routine Pure hyperglyceridemia Expected: 11/10/2022 (Approximate), Expires: 01/10/2023 [facility] Work Phone: Comment on above: Expected: 11/10/2022 (Approximate), Expires: 01/10/2023 Start: 08-10-2022 End: 10-10-2022 Comprehensive metabolic 2000 panel - Serum or Plasma COMP METABOLIC PANEL Lab Routine Pure hyperglyceridemia Expected: 08/10/2022, Expires: 10/10/2022 [facility] Work Phone: Comment on above: Expected: 08/10/2022 , Expires: 10/10/2022 Start: 08-10-2022 End: 10-10-2022 Lipid 1996 panel - Serum or Plasma LIPID PANEL BASIC Lab Routine Pure hyperglyceridemia Expected: 08/10/2022, Expires: 10/10/2022 [facility] Work Phone: Comment on above: Expected: 08/10/2022 , Expires: 10/10/2022 Start: 07-29-2022 Adult depression screening assessment DEPRESSION SCREENING [facility] Start: 07-29-2022 ANNUAL PCP TEAM SWEEPER DRIVER DB DISEASE VISIT ANNUAL PCP TEAM CHRONIC DISEASE VISIT [facility] Start: 03-29-2022 DEPRESSION ASSESSMENT DEPRESSION ASS ESSMENT [facility] Start: 02-06-2022 End: 04-08-2022 Comprehensive metabolic 2000 panel - Serum or Plasma [facility] Work Phone: Comment on above: Expected: 02/06/2022 , Expires: 04/08/2022 Start: 02-06-2022 End: 04-08-2022 Lipid 1996 panel - Serum or Plasma [facility] Work Phone: Comment on above: Expected: 02/06/2022 , Expires: 04/08/2022 Start: 01-28-2022 ANNUAL PCP TEAM SWEEPER DRIVER DB DISEASE VISIT ANNUAL PCP TEAM CHRONIC DISEASE VISIT [facility] Start: 01-28-2022 Urine microalbumin profile DTAP,TDAP,TD (9 - Td or Tdap) [facility] Comment on above: Postponed from 09/23 (Declined at this time) Start: 11-27-2021 Influenza vaccination INFLUENZA (#1) [facility] Start: 08-23-2021 SHINGRIX VACCINE (1 of 2) SHINGRIX VACCINE (1 of 2) [facility] Start: 07-25-2021 Adult depression screening assessment DEPRESSION SCREENING [facility] Start: 07-16-2021 End: 09-15-2021 Comprehensive metabolic 2000 panel - Serum or Plasma COMP METABOLIC PANEL Lab Routine Laboratory exam ordered as part of routine general medical examination Expected: 07/16/2021, Expires: 09/15/2021 [facility] Work Phone: Comment on above: Expected: 07/16/2021 , Expires: 09/15/2021 Start: 07-16-2021 End: 09-15-2021 Hemoglobin A1c/Hemoglobin.total in Blood HGB A1C Lab Routine Laboratory exam ordered as part of routine general medical examination Expected: 07/16/2021, Expires: 09/15/2021 [facility] Work Phone: Comment on above: Expected: 07/16/2021 , Expires: 09/15/2021 Start: 07-16-2021 End: 09-15-2021 Hepatitis C virus Ab [Presence] in Serum HEP C AB IA W/CONF SCRN Lab Routine Encounter for hepatitis C screening test for low risk patient Expected: 07/16/2021, Expires: 09/15/2021 [facility] Work Phone: Comment on above: Expected: 07/16/2021 , Expires: 09/15/2021 Start: 07-16-2021 End: 09-15-2021 HIV 1+2 Ab [Presence] in Serum or Plasma by Immunoassay HIV 1 2 COMBO(AG/AB),WITH REFLEX TO DIFFERENTIATION Lab Routine Screening for HIV without presence of risk factors Expected: 07/16/2021, Expires: 09/15/2021 [facility] Work Phone: Comment on above: Expected: 07/16/2021 , Expires: 09/15/2021 Start: 07-16-2021 End: 09-15-2021 LIPID PANEL BASIC LIPID PANEL BASIC Lab Routine Laboratory exam ordered as part of routine general medical examination Expected: 07/16/2021, Expires: 09/15/2021 [facility] Work Phone: Comment on above: Expected: 07/16/2021 , Expires: 09/15/2021 Start: 04-25-2021 COVID-19 VACCINE (4 - Booster for Moderna series) COVID-19 VACCINE (4 - Booster for Moderna series) [facility] Start: 03-29-2021 DEPRESSION ASSESSMENT DEPRESSION ASS ESSMENT [facility] Start: 01-21-2021 BP CONTROLLED (<130/80) BP CONTROLLE D (<130/80) [facility] Start: 09-23-2020 Urine microalbumin profile DTAP,TDAP,TD (9 - Td or Tdap) [facility] Start: 08-23-2016 COLOGUARD (FIT-DNA) COLOGUARD (FIT-D NA) [facility] Start: 08-23-[address] COLONOGRAPHY [facility] Start: 08-23-2016 FECAL OCCULT BLOOD FECAL OCCULT BLOO D [facility] Start: 08-23-2016 Screening for malign ant neoplasm of colon [facility] Start: 08-23-2016 SIGMOIDOSCOPY SIGMOIDOSCOPY [facility] Start: 03-11-2005 PNEUMOCOCCAL (2 - PCV) PNEUMOCOCCAL (2 - PCV) [facility] Start: 08-23-1990 Hepatitis B Vaccine (1 of 3 - 19+ 3-dose series) Hepatitis B Vaccine (1 of 3 - 19+ 3-dose series) [facility] Start: 08-23-1989 HEPATITIS C SCREENING HEPATITIS C SC REENING [facility] Start: 08-23-1989 HIV SCREENING HIV SCREENING [facility] Start: 1971 HEPATITIS B (1 of 3 - 3-dose series) HEPATITIS B (1 of 3 - 3-dose series) [facility] Start: 1971 Hepatitis B Vaccine (1 of 3 - 3-dose series) Hepatitis B Vaccine (1 of 3 - 3-dose series) [facility] End: 10-21-2025 XR Chest PA and Lateral XR CHEST 2V FRONTAL/LAT Radiology Routine Abnormal chest x-ray 1 Occurrences starting 09/21/2024 until 10/21/2025 [facility] Work Phone: Comment on above: 1 Occurrences starti ng 09/21/2024 until 10/21/2025 [facility] Immunizations Immunization Date Immunization Notes Care Provider [facility] 03-27-2024 Seasonal, trivalent, recombinant, injectable influenza vaccine, preservative free Susan Giovanni CLIENT SERVICES ANALYST.VAULT MAKER Work Phone: [facility] 03-27-2024 influenza virus vaccine, unspecified formulation Franc Coffman MD Work Phone: [facility] 07-09-2023 zoster vaccine recombinant Susan Giovanni CLIENT SERVICES ANALYST.VAULT MAKER Work Phone: [facility] 04-23-2023 zoster vaccine recombinant Susan Giovanni CLIENT SERVICES ANALYST.VAULT MAKER Work Phone: [facility] 02-12-2023 COVID-19 vaccine, ag e 12+ yr, season (PFIZER-BIONTECH) Maria Fernanda Older CLIENT SERVICES ANALYST.VAULT MAKER Work Phone: [facility] 02-12-2023 influenza, injectabl e, quadrivalent, contains preservative Maria Fernanda Older CLIENT SERVICES ANALYST.VAULT MAKER Work Phone: [facility] 02-12-2023 influenza virus vaccine, unspecified formulation Maria Fernanda Farnaz CLIENT SERVICES ANALYST.VAULT MAKER Work Phone: [facility] 08-10-2022 tetanus toxoid, redu herbert diphtheria toxoid, and acellular pertussis vaccine, adsorbed Maria Fernanda Older CLIENT SERVICES ANALYST.VAULT MAKER Work Phone: [facility] 02-27-2022 COVID-19 vaccine, ag e 12+ yr, bivalent (MODERNA) Maria Fernanda Older CLIENT SERVICES ANALYST.VAULT MAKER Work Phone: [facility] Work Phone: 02-10-2022 influenza, injectabl e, quadrivalent, contains preservative Franc Coffman MD Work Phone: [facility] Work Phone: 02-10-2022 pneumococcal (PCV20) vaccine, 20 valent (PREVNAR 20) Franc Coffman MD Work Phone: [facility] Work Phone: 02-10-2022 pneumococcal Conjuga te, unspecified formulation Franc Coffman MD Work Phone: [facility] Work Phone: 02-10-2022 influenza virus vaccine, unspecified formulation Maria Fernanda Older CLIENT SERVICES ANALYST.VAULT MAKER Work Phone: [facility] 12-22-2020 influenza, injectabl e, quadrivalent, preservative free Susan Davila CLIENT SERVICES ANALYST.VAULT MAKER Work Phone: [facility] 07-17-2020 COVID-19 vaccine, fu ll dose (MODERNA) Yovana Gasport PA-C Work Phone: [facility] Work Phone: 06-19-2020 COVID-19 vaccine, fu ll dose (MODERNA) Yovana Caitlin PA-C Work Phone: [facility] Work Phone: 01-22-2020 influenza, injectabl e, quadrivalent, contains preservative Yovana Caitlin PA-C Work Phone: [facility] 12-06-2018 influenza, injectabl e, quadrivalent, contains preservative Yovana Caitlin PA-C Work Phone: [facility] Work Phone: 11-26-2017 influenza, injectabl e, quadrivalent, contains preservative Yovana Caitlin PA-C Work Phone: [facility] 01-02-2017 influenza, injectabl e, quadrivalent, contains preservative Yovana Caitlin PA-C Work Phone: [facility] Work Phone: 01-18-2016 influenza, injectabl e, quadrivalent, contains preservative Yovana Gasport PA-C Work Phone: [facility] 01-17-2015 influenza, injectabl e, quadrivalent, contains preservative Yovana Gasport PA-C Work Phone: [facility] 01-11-2014 influenza, seasonal, injectable Yovana Caitlin PA-C Work Phone: [facility] Work Phone: 12-28-2012 influenza virus vaccine, unspecified formulation Yovana Gasport PA-C Work Phone: [facility] 12-25-2011 influenza virus vaccine, unspecified formulation Yovana Gasport PA-C Work Phone: [facility] 12-24-2010 influenza virus vaccine, unspecified formulation Yovana Gasport PA-C Work Phone: [facility] 09-23-2010 tetanus toxoid, redu herbert diphtheria toxoid, and acellular pertussis vaccine, adsorbed Yovana Gasport PA-C Work Phone: [facility] Work Phone: 12-23-2009 influenza virus vaccine, unspecified formulation Yovana Caitlin PA-C Work Phone: [facility] 01-30-2009 novel [id number], preservative-free, injectable Yovana Gasport PA-C Work Phone: [facility] Work Phone: 01-09-2009 influenza virus vaccine, unspecified formulation Yovana Caitlin PA-C Work Phone: [facility] Work Phone: 02-09-2008 influenza virus vaccine, unspecified formulation Yovana Gasport PA-C Work Phone: [facility] 02-15-2007 influenza virus vaccine, unspecified formulation Yovana Gasport PA-C Work Phone: [facility] Work Phone: 02-08-2006 influenza virus vaccine, unspecified formulation Yovana Tucker PA-C Work Phone: [facility] Work Phone: 02-03-2005 influenza virus vaccine, unspecified formulation Yovanahelder Goncalvesf PA-C Work Phone: [facility] Work Phone: 03-11-2004 pneumococcal polysaccharide vaccine, 23 valent Yovanahelder Tucker PA-C Work Phone: [facility] Work Phone: 12-11-1998 diphtheria and tetan us toxoids, adsorbed for pediatric use Yovanahelder Goncalvesf PA-C Work Phone: [facility] Work Phone: 04-26-1989 measles, mumps and rubella virus vaccine Yovana Gasport PA-C Work Phone: [facility] Work Phone: 01-26-1986 diphtheria and tetan us toxoids, adsorbed for pediatric use Yovanahelder Tucker PA-C Work Phone: [facility] Work Phone: 01-26-1986 trivalent poliovirus vaccine, live, oral Yovana Tucker PA-C Work Phone: [facility] Work Phone: 01-26-1981 tuberculin skin test ; purified protein derivative solution, intradermal Xr [place] Work Phone: [facility] 11-28-1976 diphtheria, tetanus toxoids and pertussis vaccine Yovanahelder Goncalvesf PA-C Work Phone: [facility] Work Phone: 11-28-1976 trivalent poliovirus vaccine, live, oral Yovanahelder Goncalvesf PA-C Work Phone: [facility] Work Phone: 08-06-1973 diphtheria, tetanus toxoids and pertussis vaccine Yovanahelder Goncalvesf PA-C Work Phone: [facility] Work Phone: 08-06-1973 tuberculin skin test ; purified protein derivative solution, intradermal Xr [place] Work Phone: [facility] 03-05-1973 trivalent poliovirus vaccine, live, oral Yovana Gasport PA-C Work Phone: [facility] Work Phone: 08-28-1972 measles, mumps and rubella virus vaccine Yovana Caitlin PA-C Work Phone: [facility] Work Phone: 06-05-1972 vaccinia (smallpox) vaccine, diluted Yovana Caitlin PA-C Work Phone: [facility] Work Phone: 04-15-1972 diphtheria, tetanus toxoids and pertussis vaccine Yovana Caitlin PA-C Work Phone: [facility] Work Phone: 04-15-1972 trivalent poliovirus vaccine, live, oral Yovana Gasport PA-C Work Phone: [facility] Work Phone: 01-31-1972 diphtheria, tetanus toxoids and pertussis vaccine Yovana Caitlin PA-C Work Phone: [facility] Work Phone: 01-31-1972 trivalent poliovirus vaccine, live, oral Yovana Gasport PA-C Work Phone: [facility] Work Phone: 1971 diphtheria, tetanus toxoids and pertussis vaccine Yovana Caitlin PA-C Work Phone: [facility] Work Phone: 1971 trivalent poliovirus vaccine, live, oral Yovana Gasport PA-C Work Phone: [facility] Work Phone: Payers Date Payer Category Payer Private Health Insurance [facility] [employer] [id number] 2021-[facility] [phone] [address] [place] [address] HMO [id number] 2021 Private Health Insurance [id number] 2021 Unknown [id number] 2019 Unknown [facility] PRE TINA SELF FUNDED [id number] 2019-2021 [address] [place] [address] PPO [id number] 2012 Unknown [id number] Social History Date Type Detail Facility Start: 05-25-2016 End: 02-06-2022 Tobacco smoking status NHIS Never smoked tobacco [facility] Start: 06-24-2021 End: 2024 Alcohol intake Current drinker of alcohol (finding) [facility] Start: 07-25-2020 End: 08-09-2022 History SDOH Alcohol Frequency 3 [facility] Start: 07-25-2020 End: 08-09-2022 History SDOH Alcohol Std Drinks 1 [facility] Start: 06-06-2021 History SDOH Alcohol Comment 1-2 per week [facility] Start: 07-25-2020 End: 08-09-2022 History SDOH Social Connections Phone 5 [facility] Start: 07-25-2020 End: 08-09-2022 History SDOH Social Connections Get Together 2 [facility] Start: 07-25-2020 History SDOH Social Connections Denominational 98 [facility] Start: 07-25-2020 History SDOH Social Connections Living 8 [facility] Start: 07-25-2020 History SDOH Financial 4 [facility] Start: 07-25-2020 Education 17 [facility] Start: 1970 Sex Assigned At Not on file [facility] Start: 06-11-2020 End: 02-10-2022 Exposure to SARS-CoV-2 (event) Not sure [facility] Start: 05-25-2016 End: 02-06-2022 Tobacco use and exposure Smokeless tobacco non-user [facility] Work Phone: Start: 08-09-2022 End: 08-17-2024 History of Social function [facility] Start: 08-09-2022 End: 08-17-2024 Social connection and isolation panel [facility] Do you belong to any clubs or organizations such as temple groups, SOASTAs, NCLC or athletic groups, or school groups? No [facility] Are you now , , , , never or living with a partner? [facility] How often to you hav e a drink containing alcohol? 2-4 times a month [facility] How many standard dr inks containing alcohol do you have on a typical day? 1 or 2 [facility] How often do you hav e 6 or more drinks on 1 occasion? Never [facility] Start: 02-28-2012 How hard is it for y ou to pay for the very basics like food, housing, medical care, and heating Not hard at all [facility] Do you feel stress - tense, restless, nervous, or anxious, or unable to sleep at night because your mind is troubled all the time - these days [OSQ] To some extent [facility] (I/We) worried tate er (my/our) food would run out before (I/we) got money to buy more. Never true [facility] Do you belong to any clubs or organizations such as temple groups, SOASTAs, NCLC or athletic groups, or school groups? Yes [facility] Do you feel stress - tense, restless, nervous, or anxious, or unable to sleep at night because your mind is troubled all the time - these days [OSQ] Only a little [facility] Functional Status Date Assessment Result Facility 05-28-2014 Because of a physica l, mental, or emotional condition, do you have difficulty doing errands alone such as visiting a physician's office or shopping No 05/28/2014 8:18 AM Joanne lElis RN No [facility] 05-28-2014 Are you deaf, or do you have serious difficulty hearing No 05/28/2014 8:17 AM Joanne Ellis RN No [facility] 05-28-2014 Are you blind, or do you have serious difficulty seeing, even when wearing glasses No 05/28/2014 8:17 AM Joanne Ellis RN No [facility] 05-28-2014 Do you have serious difficulty walking or climbing stairs No 05/28/2014 8:17 AM Joanne Ellis RN No [facility] 05-28-2014 Do you have difficul ty dressing or bathing No 05/28/2014 8:17 AM Joanne Ellis RN No [facility] Mental Status Date Assessment Result Facility 05-28-2014 Because of a physica l, mental, or emotional condition, do you have serious difficulty concentrating, remembering, or making decisions No 05/28/2014 8:17 AM Joanne Ellis RN No [facility] Clinical Notes 05-25-2016 to 09-27-2024 Mary Anderson RT(R) - 09/27/2024 8:00 AM EDTTelephone Encounter - Carolin Ward - 09/23/2024 10:36 AM EDTTelephone Encounter - Carolin Ward - 09/23/2024 10:36 AM EDT Note Date & Type Note Facility 09-27-2024 History of Presen t illness Narrative Radiology Service Progress Note PATIENT NAME: Alirio Porras DATE OF SERVICE: September 27, 2024 TIME: 1:35 PM PATIENT IDENTITY VERIFICATION COMPLETED USING TWO (2) IDENTIFIERS: Name and Date of confirmed by patient verbally. FALL SCREENING: Has the patient had 2 falls in the last year or 1 fall with injury or currently using an Ambulatory Assistive Device (Walker, Cane, Wheelchair, Crutches, etc.)? No PATIENT GENDER DATA: Assigned male at PATIENT RELEVANT IMPLANT DATA REVIEWED: Not Applicable PATIENT PRESENTS WITH AN IMPLANTABLE OR ATTACHED BACKBREAKER: No RADIOLOGY DEPARTMENT: General X-ray: Exam(s) Completed: Chest X-Ray PERIPHERAL IV DATA: Not applicable SIGNED BY: RT Debbie(R) September 27, 2024 1:35 PM documented in this encounter [facility] 09-27-2024 Note HNO ID: [id number] Author: MARY ANDERSNO RT(R) Service: ? Author Type: Technologist Type: Progress Notes Filed: 09/27/2024 13:36 Note Text: Radiology Service Progress Note PATIENT NAME: Alirio Porras DATE OF SERVICE: September 27, 2024 TIME: 1:35 PM PATIENT IDENTITY VERIFICATION COMPLETED USING TWO (2) IDENTIFIERS: Name and Date of confirmed by patient verbally. FALL SCREENING: Has the patient had 2 falls in the last year or 1 fall with injury or currently using an Ambulatory Assistive Device (Walker, Cane, Wheelchair, Crutches, etc.)? No PATIENT GENDER DATA: Assigned male at PATIENT RELEVANT IMPLANT DATA REVIEWED: Not Applicable PATIENT PRESENTS WITH AN IMPLANTABLE OR ATTACHED BACKBREAKER: No RADIOLOGY DEPARTMENT: General X-ray: Exam(s) Completed: Chest X-Ray PERIPHERAL IV DATA: Not applicable SIGNED BY: RT Debbie(R) September 27, 2024 1:35 PM [facility] 09-23-2024 Telephone encounter Note Spoke with patient and he prefers a walk in to complete xray [facility] 09-23-2024 Miscellaneous Notes Spoke with patient and he prefers a walk in to complete xray 1st lvm ASSESSMENT/PLAN: 1. Abnormal chest x-ray - ICD9: 793.2, ICD10: R93.89 - XR CHEST 2V FRONTAL/LAT Franc Coffman MD Patient presented today to have Chest Xray done but order was accidentally cancelled when patient's appointment was cancelled. Please file new order. documented in this encounter [facility] 09-21-2024 Telephone encounter Note 1st lvm [facility] 09-21-2024 Telephone encounter Note ASSESSMENT/PLAN: 1. Abnormal chest x-ray - ICD9: 793.2, ICD10: R93.89 - XR CHEST 2V FRONTAL/LAT Franc Coffman MD [facility] 09-21-2024 Telephone encounter Note Patient presented today to have Chest Xray done but order was accidentally cancelled when patient's appointment was cancelled. Please file new order. [facility] 09-19-2024 History of Presen t illness Narrative Sleep Study Check-In Documentation Date: September 19, 2024 Name: Alirio Porras Comments: HST was returned in working order with all sleep questionnaires Alverot Garland Nomad # [id number] , date shipped out 09-14-24 Fed ex only Tracking mailout: [id number] Tracking return: [id number] August 28, 2024 Standing PSG Orders signed in the last 90 days None Future PSG Orders signed in the last 90 days Ordered Auth. provider HOME SLEEP APNEA TEST (HSAT) [[id number]] 08/17/24 Franc Coffman MD Assoc. diagnoses: Snoring [R06.83] Q: Indications: A: Obstructive sleep apnea Q: STOP-BANG conditions - Select All That Apply: A: GENDER = male A2: AGE > 50 A3: high blood PRESSURE A4: SNORING that is loud or disruptive A5: NECK circumference (male >43 cm/17 in; female > 41 cm/16 in) Q: Current use of supplemental oxygen during sleep period?: A: No All Prior Sleep Studies (past 365 days) 08/17/2024 08:41 Sleep Studies HOME SLEEP APNEA TEST (HSAT) HOME SLEEP APNEA TEST (HSAT) Order Status: Ordered, Future Expires: 08/17/25 BMI Readings from Last 2 Encounters: 08/17/24 : 28.63 kg/m 07/27/24 : 28.72 kg/m PAST MEDICAL HISTORY Diagnosis Date Angioedema 07/17/2005 angioedema from lisinopril Asthma (HCC) Conversion disorder Esophageal reflux Essential hypertension 10/19/2002 Pure hyperglyceridemia Pure hyperglyceridemia 04/10/2005 Rupture of Achilles tendon, traumatic 11/30/2013 Right side. Seasonal allergic rhinitis 06/26/2010 Unspecified asthma(493.90) 1980 childhood asthma The medical record was reviewed to determine if the proposed sleep study conforms to the AASM Practice Parameters for the Indications for Polysomnography and Related Procedures, or if the sleep study is indicated for other reasons. Indications for study: ARJUN suspected without comorbid medical or sleep disorders Sleep study to be performed: Home Sleep Apnea Test (HSAT) Special instructions: None-follow laboratory protocol Emeli Humphreys - Sleep Medicine Staff Note: I have read the above protocol, edited as needed, and agree to the plan. Karan Tobar APRN.CNP 12:58 PM, 08/28/2024 August 25, 2024 An order has been received for Home Sleep Apnea Test (HSAT) from Franc Ivey MD , a B. [facility] Staff. Visit prep complete. Comments :No The sleep study is scheduled for 09-15-24. Insurance: Payor: [employer] / Plan: [employer] / Product Type: HMO / Payer/Plan Subscr Sex Relation Sub. Ins. ID Effective Group Num 1. [facility] ALIRIO PORRAS 1970 Male Self [id number] [birth year] [id number] [address] Eusebia Fisher documented in this encounter [facility] 09-19-2024 Note HNO ID: [id number] Author: ?, ?, ? Service: ? Author Type: ? Type: Progress Notes Filed: 09/19/2024 10:34 Note Text: Sleep Study Check-In Documentation Date: September 19, 2024 Name: Alirio Porras Comments: HST was returned in working order with all sleep questionnaires Alverto Garland [facility] 09-13-2024 Note HNO ID: [id number] Author: ?, ?, ? Service: ? Author Type: ? Type: Progress Notes Filed: 09/19/2024 10:34 Note Text: Nomad # [id number] , date shipped out 09-14-24 Fed ex only Tracking mailout: [id number] Tracking return: [id number] [facility] 08-28-2024 Note HNO ID: [id number] Author: KARAN TOBAR APRN.CNP Service: ? Author Type: Nurse Practitioner Type: Progress Notes Filed: 09/19/2024 10:34 Note Text: August 28, 2024 Standing PSG Orders signed in the last 90 days None Future PSG Orders signed in the last 90 days Ordered Auth. provider HOME SLEEP APNEA TEST (HSAT) [[id number]] 08/17/24 Franc Coffman MD Assoc. diagnoses: Snoring [R06.83] Q: Indications: A: Obstructive sleep apnea Q: STOP-BANG conditions - Select All That Apply: A: GENDER = male A2: AGE > 50 A3: high blood PRESSURE A4: SNORING that is loud or disruptive A5: NECK circumference (male >43 cm/17 in; female > 41 cm/16 in) Q: Current use of supplemental oxygen during sleep period?: A: No All Prior Sleep Studies (past 365 days) 08/17/2024 08:41 Sleep Studies HOME SLEEP APNEA TEST (HSAT) HOME SLEEP APNEA TEST (HSAT) Order Status: Ordered, Future Expires: 08/17/25 BMI Readings from Last 2 Encounters: 08/17/24 : 28.63 kg/m? 07/27/24 : 28.72 kg/m? PAST MEDICAL HISTORY Diagnosis Date Angioedema 07/17/2005 angioedema from lisinopril Asthma (HCC) Conversion disorder Esophageal reflux Essential hypertension 10/19/2002 Pure hyperglyceridemia Pure hyperglyceridemia 04/10/2005 Rupture of Achilles tendon, traumatic 11/30/2013 Right side. Seasonal allergic rhinitis 06/26/2010 Unspecified asthma(493.90) 1980 childhood asthma The medical record was reviewed to determine if the proposed sleep study conforms to the AASM Practice Parameters for the Indications for Polysomnography and Related Procedures, or if the sleep study is indicated for other reasons. Indications for study: ARJUN suspected without comorbid medical or sleep disorders Sleep study to be performed: Home Sleep Apnea Test (HSAT) Special instructions: None-follow laboratory protocol Emeli Humphreys - Sleep Medicine Staff Note: I have read the above protocol, edited as needed, and agree to the plan. Karan Tobar APRN.VAULT MAKER 12:58 PM, 08/28/2024 [facility] 08-25-2024 Note HNO ID: [id number] Author: ?, ?, ? Service: ? Author Type: ? Type: Progress Notes Filed: 09/19/2024 10:34 Note Text: August 25, 2024 An order has been received for Home Sleep Apnea Test (HSAT) from Franc Ivey MD , a B. [facility] Staff. Visit prep complete. Comments :No The sleep study is scheduled for 09-15-24. Insurance: Payor: [employer] / Plan: [employer] / Product Type: HMO / Payer/Plan Subscr Sex Relation Sub. Ins. ID Effective Group Num 1. [facility] ALIRIO PORRAS 1970 Male Self [id number] [birth year] [id number] [address] [facility] HNO ID: [id number] Author: PAYTON GLASS [facility] Service: ? Author Type: Genetic Counselor Type: Progress Notes Filed: 09/06/2024 12:47 Note Text: [facility] Department of Medical Genetics Consultation Note Genetic Counselor: Payton Glass, MS, [facility] [place] Patient: Alirio Porras Patient Name and confirmed at initiation of visit. This visit was conducted via exoro system. I have communicated my name and active licensure. The patient's identity and physical location were verified at the time of this visit. Either the patient or their legal textile designs sales representative has been informed of the risks and benefits of -- and alternatives to -- treatment through a remote evaluation and consents to proceed with the evaluation remotely. HIGH LEVEL SUMMARY: The patient's family history is potentially suggestive of a hereditary pancreatic cancer syndrome. The patient provided informed consent for Multi-Cancer panel through [facility]. Results are expected in 2-3 weeks from the time of sample collection. Genetic counseling and consideration of genetic testing is recommended for the patient's sister. Patient plans to have blood drawn . IDENTIFICATION AND CHIEF COMPLAINT: Dr. Coffman requested a consultation for genetic counseling and risk assessment for Alirio Porras, a 54 year old male, for discussion of his family history of pancreatic cancer. He presents to clinic today to discuss the possibility of a genetic predisposition to cancer, and to further clarify his risks, as well as his family members' risks for cancer. HISTORY OF PRESENT ILLNESS: Alirio Porras is a 54 year old male with no personal history of cancer. PAST MEDICAL HISTORY Diagnosis Date Angioedema 07/17/2005 angioedema from lisinopril Asthma (HCC) Conversion disorder Esophageal reflux Essential hypertension 10/19/2002 Pure hyperglyceridemia Pure hyperglyceridemia 04/10/2005 Rupture of Achilles tendon, traumatic 11/30/2013 Right side. Seasonal allergic rhinitis 06/26/2010 Unspecified asthma(493.90) 1980 childhood asthma PAST SURGICAL HISTORY Procedure Laterality Date COLONOSCOPY 06/06/2021 repeat in 10 years ESOPHAGOGASTRODUODENOSCOPY TRANSORAL DIAGNOSTIC 10/25/2006 EGD HERNIA REPAIR HX PAST SURGICAL HISTORY OF Right 06/12/2013 open repair right Achilles tendon; Dr Chon Cedeno RPR 1ST [facility] HRNA AGE 6 YRS/> REDUCIBLE 12/07/2000 Hernia repair, inguinal VASECTOMY UNI/BI SPX W/POSTOP SEMEN EXAMS 05/2005 CANCER SURVEILLANCE HISTORY: Mammograms: No Breast MRI's: No Breast Biopsies: No Colonoscopy: Yes / Findings: The perianal and digital rectal examinations were normal. Non-bleeding internal hemorrhoids were found. A 3 to 6 mm polyp was found in the rectum. The polyp was sessile. The polyp was removed with a cold snare. Resection and retrieval were complete. Verification of patient identification for the specimen was done by the nurse. Estimated blood loss was minimal. Impression: - Non-bleeding internal hemorrhoids. - One 3 to 6 mm polyp in the rectum, removed with a cold snare. Resected and retrieved. EGD: Yes / 20+ years ago and normal per patient GI Polyps: Yes / as per above Prostate Cancer surveillance: No PSA in system Dermatology: Yes / annually REPRODUCTIVE HISTORY AND PERSONAL RISK ASSESSMENT FACTORS: Weight: Last 1 Encounter Wt Readings: Date: Wt: 08/17/2024 93.1 kg (205 lb 4 oz) Height: Last 1 Encounter Ht Readings: Date: Ht: 08/17/2024 180.3 cm (5' 11") SOCIAL HISTORY: Social History Tobacco Use Smoking status: Never Smokeless tobacco: Never Vaping Use Vaping status: Never Used Substance Use Topics Alcohol use: Yes Comment: 1-2 per week Drug use: No FAMILY HISTORY: We obtained a detailed, 4-generation family history. Significant diagnoses are listed below: FAMILY HISTORY Problem Relation Age of Onset Hypertension Mother Lipids Mother Diabetes Father Cancer Father 70 Pancreatic Cancer Asthma Sister Ischemic Heart Disease Maternal Grandfather Pancreatic Cancer Paternal Aunt 80 - 89 Pedigree Image The patient's maternal ancestors are of descent and paternal ancestors are of descent. There is no known Ashkenazi Jainism ancestry. There is no known consanguinity. A copy of the patient's pedigree will be available under the scanned documents tab following today's visit. GENETIC COUNSELING RISK ASSESSMENT, DISCUSSION, AND SUGGESTED FOLLOW UP: We reviewed the natural history and genetic etiology of sporadic, familial and hereditary cancer syndromes. The patient's family history is potentially suggestive of: a hereditary pancreatic cancer syndrome We discussed that the best person to begin with genetic testing is a family member with a history of cancer. The patient's father who was diagnosed with pancreatic cancer would be the most appropriate relative for genetic testing. (more content not included)... [facility] 2024 History of Presen t illness Narrative Images from the original note were not included. [facility] Department of Medical Genetics Consultation Note Genetic Counselor: Payton Glass, MS, [facility] [place] Patient: Alirio Porras Patient Name and confirmed at initiation of visit. This visit was conducted via exoro system. I have communicated my name and active licensure. The patient's identity and physical location were verified at the time of this visit. Either the patient or their legal textile designs sales representative has been informed of the risks and benefits of -- and alternatives to -- treatment through a remote evaluation and consents to proceed with the evaluation remotely. HIGH LEVEL SUMMARY: The patient's family history is potentially suggestive of a hereditary pancreatic cancer syndrome. The patient provided informed consent for Multi-Cancer panel through [facility]. Results are expected in 2-3 weeks from the time of sample collection. Genetic counseling and consideration of genetic testing is recommended for the patient's sister. Patient plans to have blood drawn . IDENTIFICATION AND CHIEF COMPLAINT: Dr. Coffman requested a consultation for genetic counseling and risk assessment for Alirio Porras, a 54 year old male, for discussion of his family history of pancreatic cancer. He presents to clinic today to discuss the possibility of a genetic predisposition to cancer, and to further clarify his risks, as well as his family members' risks for cancer. HISTORY OF PRESENT ILLNESS: Alirio Porras is a 54 year old male with no personal history of cancer. PAST MEDICAL HISTORY Diagnosis Date Angioedema 07/17/2005 angioedema from lisinopril Asthma (HCC) Conversion disorder Esophageal reflux Essential hypertension 10/19/2002 Pure hyperglyceridemia Pure hyperglyceridemia 04/10/2005 Rupture of Achilles tendon, traumatic 11/30/2013 Right side. Seasonal allergic rhinitis 06/26/2010 Unspecified asthma(493.90) 1980 childhood asthma PAST SURGICAL HISTORY Procedure Laterality Date COLONOSCOPY 06/06/2021 repeat in 10 years ESOPHAGOGASTRODUODENOSCOPY TRANSORAL DIAGNOSTIC 10/25/2006 EGD HERNIA REPAIR HX PAST SURGICAL HISTORY OF Right 06/12/2013 open repair right Achilles tendon; Dr Chon Cedeno RPR 1ST INGUN HRNA AGE 6 YRS/> REDUCIBLE 12/07/2000 Hernia repair, inguinal VASECTOMY UNI/BI SPX W/POSTOP SEMEN EXAMS 05/2005 CANCER SURVEILLANCE HISTORY: Mammograms: No Breast MRI's: No Breast Biopsies: No Colonoscopy: Yes / Findings: The perianal and digital rectal examinations were normal. Non-bleeding internal hemorrhoids were found. A 3 to 6 mm polyp was found in the rectum. The polyp was sessile. The polyp was removed with a cold snare. Resection and retrieval were complete. Verification of patient identification for the specimen was done by the nurse. Estimated blood loss was minimal. Impression: - Non-bleeding internal hemorrhoids. - One 3 to 6 mm polyp in the rectum, removed with a cold snare. Resected and retrieved. EGD: Yes / 20+ years ago and normal per patient GI Polyps: Yes / as per above Prostate Cancer surveillance: No PSA in system Dermatology: Yes / annually REPRODUCTIVE HISTORY AND PERSONAL RISK ASSESSMENT FACTORS: Weight: Last 1 Encounter Wt Readings: Date: Wt: 08/17/2024 93.1 kg (205 lb 4 oz) Height: Last 1 Encounter Ht Readings: Date: Ht: 08/17/2024 180.3 cm (5' 11") SOCIAL HISTORY: Social History Tobacco Use Smoking status: Never Smokeless tobacco: Never Vaping Use Vaping status: Never Used Substance Use Topics Alcohol use: Yes Comment: 1-2 per week Drug use: No FAMILY HISTORY: We obtained a detailed, 4-generation family history. Significant diagnoses are listed below: FAMILY HISTORY Problem Relation Age of Onset Hypertension Mother Lipids Mother Diabetes Father Cancer Father 70 Pancreatic Cancer Asthma Sister Ischemic Heart Disease Maternal Grandfather Pancreatic Cancer Paternal Aunt 80 - 89 Pedigree Image The patient's maternal ancestors are of descent and paternal ancestors are of descent. There is no known Ashkenazi Jainism ancestry. There is no known consanguinity. A copy of the patient's pedigree will be available under the scanned documents tab following today's visit. GENETIC COUNSELING RISK ASSESSMENT, DISCUSSION, AND SUGGESTED FOLLOW UP: We reviewed the natural history and genetic etiology of sporadic, familial and hereditary cancer syndromes. The patient's family history is potentially suggestive of: a hereditary pancreatic cancer syndrome We discussed that the best person to begin with genetic testing is a family member with a history of cancer. The patient's father who was diagnosed with pancreatic cancer would be the most appropriate relative for genetic testing. However, this relative is unavailable for testing. Therefore, we discussed the limitations of interpreting tests results for an unaffected individual. The patient meets NCCN testing criteria since his father had a personal history of pancreatic cancer. We discussed that identification of a hereditary cancer syndrome may help his care providers tailor his medical management. If a mutation is detected, the National Comprehensive Cancer Network and/or expert opinion recommendations could include increased cancer surveillance options. If a mutation is detected, the patient will be referred back to the referring provider and to any additional appropriate care providers to discuss the relevant options. Inheritance of hereditary cancer syndromes was discussed with the patient. If a mutation is not found in the patient, this will decrease the likelihood of a hereditary pancreatic cancer syndrome for the patient, however it cannot rule it out as the explanation for the family history of pancreatic cancer. Cancer surveillance options would be discussed for the patient according to the appropriate standard National Comprehensive Cancer Network and [place] Cancer [employer] guidelines, with consideration of their personal and family history risk factors. In this case, the patient will be referred back to their care providers for discussions of management. Based on this assessment of the patient's family and personal history, genetic testing is recommended. The patient was offered Multi-Cancer panel through [facility]. After considering the risks, benefits, and limitations, the patient chose to pursue and provided informed consent for the following testing: Multi-Cancer panel through [facility]. The Multi-Cancer Panel includes the following 70 genes: AIP, ALK, APC, KELSEY, AXIN2, BAP1, BARD1, BLM, BMPR1A, BRCA1, BRCA2, BRIP1, CDC73, CDH1, CDK4, CDKN1B, CDKN2A, CHEK2, CTNNA1, DICER1, EGFR, EPCAM, FH, FLCN, GREM1, HOXB13, KIT, LZTR1, MAX, MBD4, MEN1, MET, MITF, MLH1, MSH2, MSH3, MSH6, MUTYH, NF1, NF2, NTHL1, PALB2, PDGFRA, PMS2, POLD1, POLE, POT1, FJUWH8W, PTCH1, PTEN, RAD51C, RAD51D, RB1, RET, SDHA, SDHAF2, SDHB, SDHC, SDHD, SMAD4, SMARCA4, SMARCB1, SMARCE1, STK11, SUFU, LWHT182, TP53, TSC1, TSC2, VHL The Multi-Cancer panel looks at genes associated with cancers of the breast, gynecologic tract (ovarian, uterine/endometrial), gastrointestinal system (colorectal, gastric, pancreatic), endocrine glands (thyroid, parathyroid, pituitary, adrenal glands), genitourinary tract (renal/urinary tract, prostate), skin (melanoma, basal cell carcinoma), and brain/nervous system. We discussed that an NGS panel can rarely result in an unexpected finding which may or may not be related to the presenting phenotype. We discussed that [employer] may contact the patient regarding billing. The patient should watch for this communication and respond promptly. The patient should contact [employer] directly with any billing questions (ph. [phone] or [email or web address]) . Per the patient's request, we will contact him by [employer] or telephone to review these results. A follow up genetic counseling visit will be scheduled if requested. I spent a total of 30 minutes on the date of the service, which included preparing to see the patient, [id number] patient care, completing clinical documentation, obtaining and/or reviewing separately obtained history, counseling and educating the patient/family/caregiver, ordering tests, communicating with other HCPs (not separately reported), independently interpreting results (not separately reported), communicating results to the patient/family/caregiver, and care coordination (not separately reported). This plan is being carried out under the oversight of Dr. Mary Sanchez. This note will also be sent to the referring provider via the electronic medical record. Payton Glass MS, [facility] [place] [facility] CC: Dr. Cordell Sanchez documented in this encounter [facility] 08-17-2024 Note HNO ID: [id number] Author: FRANC COFFMAN MD Service: ? Author Type: Physician Type: Progress Notes Filed: 08/17/2024 09:43 Note Text: This note was created using NoteWriter. Subjective Patient presents with: Yearly Exam Alirio Porras is a 53 year old male. He had pneumonia earlier this month. He had residual cough. This caused colonoscopy scheduled with Dr. Harris to be postponed. Overall, he was better. We reviewed his lab results. He was interested in CAC scoring (free at with referral). He was unable to schedule with genetics last year for some reason. Concern was pancreatic cancer in his family. ASTHMA CONTROL TEST Date: 08/17/2024 In the last 4 weeks, how much of the time did your asthma keep you from getting as much done at work or home that you wanted to do? None of the time (5) In the last 4 weeks, how often have you had shortness of breath? Once or twice per week (4) In the last 4 weeks, how often did your asthma symptoms (wheezing, coughing, shortness of breath, chest tightness or pain) wake you up at night or earlier than usual? Not at all (5) In the last 4 weeks, how often have you used your rescue inhaler or nebulizer medication (such as Albuterol, Proventil, Ventolin, Maxair, Xoponex, or Primatene Mist)? A few times per week (3) In the last 4 weeks, how would you rate your asthma control? Completely controlled (5) Total: more than 20 1) Snoring? Yes. 2) Tired? No. 3) Observed apnea? No. 4) Pressure (Hypertension)? Yes. 5) BMI>45? No. 6) Age>50? . 7) Neck circumference >40cm? Yes. 8) Gender male? Yes. Conclude: Total 3 or more positive responses? Yes. Other providers: Michael Aranda MD ([facility]) [facility]. [facility] Review of Systems Constitutional: Negative for diaphoresis, fatigue, fever and unexpected weight change. HENT: Negative for congestion and sore throat. Eyes: Negative for visual disturbance. Respiratory: Positive for cough. Negative for shortness of breath and wheezing. Cardiovascular: Negative for chest pain, palpitations and leg swelling. Gastrointestinal: Positive for abdominal pain and diarrhea. Negative for blood in stool, constipation, nausea and vomiting. Genitourinary: Negative for difficulty urinating and dysuria. Musculoskeletal: Negative. Skin: Negative. Neurological: Negative for dizziness and headaches. PAST MEDICAL HISTORY Diagnosis Date Angioedema 07/17/2005 angioedema from lisinopril Asthma (HCC) Conversion disorder Esophageal reflux Essential hypertension 10/19/2002 Pure hyperglyceridemia Pure hyperglyceridemia 04/10/2005 Rupture of Achilles tendon, traumatic 11/30/2013 Right side. Seasonal allergic rhinitis 06/26/2010 Unspecified asthma(493.90) 1980 childhood asthma PAST SURGICAL HISTORY Procedure Laterality Date COLONOSCOPY 06/06/2021 repeat in 10 years ESOPHAGOGASTRODUODENOSCOPY TRANSORAL DIAGNOSTIC 10/25/2006 EGD HERNIA REPAIR HX PAST SURGICAL HISTORY OF Right 06/12/2013 open repair right Achilles tendon; Dr Chon Cedeno RPR 1ST INGUN HRNA AGE 6 YRS/> REDUCIBLE 12/07/2000 Hernia repair, inguinal VASECTOMY UNI/BI SPX W/POSTOP SEMEN EXAMS 05/2005 FAMILY HISTORY Problem Relation Age of Onset Hypertension Mother Lipids Mother Diabetes Father Cancer Father 70 Pancreatic Cancer Asthma Sister Ischemic Heart Disease Maternal Grandfather Pancreatic Cancer Paternal Aunt 80 - 89 Social History Tobacco Use Smoking status: Never Smokeless tobacco: Never Vaping Use Vaping status: Never Used Substance Use Topics Alcohol use: Yes Comment: 1-2 per week Drug use: No ALLERGIES Allergen Reactions Bactrim Ds [Sulfame* Intolerance Lisinopril Swelling Nystatin Rash Sulfa (Sulfonamide * Angioedema Current Outpatient Medications Medication Sig budesonide-formoterol (SYMBICORT) 80-4.5 mcg/actuation inhaler Inhale 1 Puff as instructed two times a day. Use with spacer. Rinse mouth out after use. irbesartan (AVAPRO) 150 mg tablet Take 1 tablet by mouth daily at bedtime. cetirizine (ZYRTEC) 10 mg tablet Take 1 tablet by mouth once daily as needed for cold/allergy symptoms. THERAPEUTIC MULTIVITAMIN TAB Take one(1) tablet daily. albuterol HFA (PROVENTIL HFA, VENTOLIN HFA) 90 mcg/actuation inhaler Inhale 2 puffs as instructed every 4 hours as needed for wheezing/shortness of breath (chest tightness or cough, use with spacer. Can use 15 min pre-exercise). hyoscyamine (LEVSIN) 0.125 mg tablet Take 2 tablets by mouth every 6 hours as needed (cramping, diarrhea). felodipine ER (PLENDIL) 5 mg 24 hr tablet Take 1 tablet by mouth once daily. montelukast (SINGULAIR) 10 mg tablet Take 1 tablet by mouth daily at bedtime. No current facility-administered medications for this visit. Objective BP 122/72 Pulse 72 Resp 16 Ht 180.3 cm (5' 11") Wt 93.1 kg (205 lb 4 oz) BMI 28.63 kg/m? (more content not included)... [facility] 08-15-2024 Telephone encounter Note Patient is here for labs for yearly on 08/17. Please file orders Lynne Segundo MA [facility] 08-15-2024 Miscellaneous Notes Patient is here for labs for yearly on 08/17. Please file orders Lynne Segundo MA documented in this encounter [facility] 07-27-2024 History of Presen t illness Narrative Radiology Service Progress Note PATIENT NAME: Alirio Porras DATE OF SERVICE: July 27, 2024 TIME: 11:03 AM PATIENT IDENTITY VERIFICATION COMPLETED USING TWO (2) IDENTIFIERS: Name and Date of confirmed by patient verbally. FALL SCREENING: Has the patient had 2 falls in the last year or 1 fall with injury or currently using an Ambulatory Assistive Device (Walker, Cane, Wheelchair, Crutches, etc.)? No PATIENT GENDER DATA: Assigned male at PATIENT RELEVANT IMPLANT DATA REVIEWED: Not Applicable PATIENT PRESENTS WITH AN IMPLANTABLE OR ATTACHED BACKBREAKER: No RADIOLOGY DEPARTMENT: General X-ray: Exam(s) Completed: Chest X-Ray PERIPHERAL IV DATA: Not applicable SIGNED BY: Petr Jo July 27, 2024 11:03 AM documented in this encounter [facility] 07-27-2024 Note HNO ID: [id number] Author: HANNAH ROSSI Tech Service: ? Author Type: Technologist Type: Progress Notes Filed: 07/27/2024 11:08 Note Text: Radiology Service Progress Note PATIENT NAME: Alirio Porras DATE OF SERVICE: July 27, 2024 TIME: 11:03 AM PATIENT IDENTITY VERIFICATION COMPLETED USING TWO (2) IDENTIFIERS: Name and Date of confirmed by patient verbally. FALL SCREENING: Has the patient had 2 falls in the last year or 1 fall with injury or currently using an Ambulatory Assistive Device (Walker, Cane, Wheelchair, Crutches, etc.)? No PATIENT GENDER DATA: Assigned male at PATIENT RELEVANT IMPLANT DATA REVIEWED: Not Applicable PATIENT PRESENTS WITH AN IMPLANTABLE OR ATTACHED BACKBREAKER: No RADIOLOGY DEPARTMENT: General X-ray: Exam(s) Completed: Chest X-Ray PERIPHERAL IV DATA: Not applicable SIGNED BY: Petr Jo July 27, 2024 11:03 AM [facility] 07-27-2024 Note HNO ID: [id number] Author: RONALD GONSALVES APRN.[employer] Service: ? Author Type: Nurse Practitioner Type: Progress Notes Filed: 07/27/2024 11:49 Note Text: Subjective HPI Nontoxic-appearing 53-year-old male presents urgent care chief complaint cough chest congestion. Initially did have body aches chills and fever. States last purulent symptom today is cough. OTC medications none. Has used rescue inhaler this helps some only for short amount of time. Presents today with persistent cough and some shortness of breath with coughing. Denies any chest pain or hemoptysis pleuritic pain. No productive cough. No fevers. Past medical history prescription medications allergies reviewed. .Patient presents with: Cough: Chest congestion, SOB, fever x6 days PAST MEDICAL HISTORY Diagnosis Date Angioedema 07/17/2005 angioedema from lisinopril Asthma (HCC) Conversion disorder Esophageal reflux Essential hypertension 10/19/2002 Pure hyperglyceridemia Pure hyperglyceridemia 04/10/2005 Rupture of Achilles tendon, traumatic 11/30/2013 Right side. Seasonal allergic rhinitis 06/26/2010 Unspecified asthma(493.90) 1980 childhood asthma PAST SURGICAL HISTORY Procedure Laterality Date COLONOSCOPY 06/06/2021 repeat in 10 years ESOPHAGOGASTRODUODENOSCOPY TRANSORAL DIAGNOSTIC 10/25/2006 EGD HERNIA REPAIR HX PAST SURGICAL HISTORY OF Right 06/12/2013 open repair right Achilles tendon; Dr Chon Cedeno RPR 1ST INGUN HRNA AGE 6 YRS/> REDUCIBLE 12/07/2000 Hernia repair, inguinal VASECTOMY UNI/BI SPX W/POSTOP SEMEN EXAMS 05/2005 ALLERGIES Bactrim Ds [Sulfamethoxazole-Trimethoprim], Lisinopril, Nystatin, and Sulfa (Sulfonamide Antibiotics) MEDICATIONS budesonide-formoterol (SYMBICORT) 80-4.5 mcg/actuation inhaler Inhale 1 Puff as instructed two times a day. Use with spacer. Rinse mouth out after use. montelukast (SINGULAIR) 10 mg tablet Take 1 tablet by mouth daily at bedtime. irbesartan (AVAPRO) 150 mg tablet Take 1 tablet by mouth daily at bedtime. felodipine ER (PLENDIL) 5 mg 24 hr tablet Take 1 tablet by mouth once daily. albuterol HFA (PROVENTIL HFA, VENTOLIN HFA) 90 mcg/actuation inhaler Inhale 2 Puffs as instructed every 4 hours as needed for wheezing/shortness of breath (chest tightness or cough, use with spacer. Can use 15 min pre-exercise). hyoscyamine (LEVSIN) 0.125 mg tablet Take 2 tablets by mouth every 6 hours as needed (cramping, diarrhea). cetirizine (ZYRTEC) 10 mg tablet Take 1 tablet by mouth once daily as needed for cold/allergy symptoms. THERAPEUTIC MULTIVITAMIN TAB Take one(1) tablet daily. FAMILY HISTORY Problem Relation Age of Onset Hypertension Mother Lipids Mother Diabetes Father Cancer Father 70 Pancreatic Cancer Asthma Sister Ischemic Heart Disease Maternal Grandfather Pancreatic Cancer Paternal Aunt 80 - 89 Social History Tobacco Use Smoking status: Never Smokeless tobacco: Never Vaping Use Vaping status: Never Used Substance Use Topics Alcohol use: Yes Comment: 1-2 per week Drug use: No BP 113/83 Pulse 86 Temp 36.7 ?C (98 ?F) Resp 20 Wt 93.4 kg (205 lb 14.6 oz) SpO2 96% BMI 28.72 kg/m? Review of Systems Constitutional: Positive for malaise/fatigue. Negative for chills and fever. HENT: Positive for congestion. Negative for ear discharge, ear pain, sinus pain and sore throat. Eyes: Negative for blurred vision, pain, discharge and redness. Respiratory: Positive for cough, shortness of breath and wheezing. Negative for hemoptysis, sputum production and stridor. Cardiovascular: Negative for chest pain. Gastrointestinal: Negative for abdominal pain, diarrhea, nausea and vomiting. Musculoskeletal: Positive for myalgias. Skin: Negative for itching and rash. Neurological: Negative for dizziness and headaches. Objective Physical Exam Constitutional: General: He is not in acute distress. Appearance: He is not diaphoretic. HENT: Head: Normocephalic. Jaw: No trismus, tenderness, swelling or pain on movement. Nose: Congestion present. Mouth/Throat: Mouth: Mucous membranes are moist. Pharynx: Oropharynx is clear. Uvula midline. No pharyngeal swelling, oropharyngeal exudate, posterior oropharyngeal erythema or uvula swelling. Eyes: Conjunctiva/sclera: Conjunctivae normal. Pupils: Pupils are equal, round, and reactive to light. Cardiovascular: Rate and Rhythm: Normal rate and regular rhythm. Heart sounds: Normal heart sounds. Pulmonary: Effort: Pulmonary effort is normal. No tachypnea, accessory muscle usage or respiratory distress. Breath sounds: No stridor. Rhonchi present. No wheezing or rales. Abdominal: General: There is no distension. Palpations: Abdomen is soft. Tenderness: There is no abdominal tenderness. There is no guarding or rebound. Musculoskeletal: Cervical back: Normal range of motion and neck supple. No edema, erythema, rigidity or tenderness. No pain with movem (more content not included)... [facility] 07-27-2024 History of Presen t illness Narrative Subjective HPI Nontoxic-appearing 53-year-old male presents urgent care chief complaint cough chest congestion. Initially did have body aches chills and fever. States last purulent symptom today is cough. OTC medications none. Has used rescue inhaler this helps some only for short amount of time. Presents today with persistent cough and some shortness of breath with coughing. Denies any chest pain or hemoptysis pleuritic pain. No productive cough. No fevers. Past medical history prescription medications allergies reviewed. .Patient presents with: Cough: Chest congestion, SOB, fever x6 days PAST MEDICAL HISTORY Diagnosis Date Angioedema 07/17/2005 angioedema from lisinopril Asthma (HCC) Conversion disorder Esophageal reflux Essential hypertension 10/19/2002 Pure hyperglyceridemia Pure hyperglyceridemia 04/10/2005 Rupture of Achilles tendon, traumatic 11/30/2013 Right side. Seasonal allergic rhinitis 06/26/2010 Unspecified asthma(493.90) 1980 childhood asthma PAST SURGICAL HISTORY Procedure Laterality Date COLONOSCOPY 06/06/2021 repeat in 10 years ESOPHAGOGASTRODUODENOSCOPY TRANSORAL DIAGNOSTIC 10/25/2006 EGD HERNIA REPAIR HX PAST SURGICAL HISTORY OF Right 06/12/2013 open repair right Achilles tendon; Dr Chon Cedeno RPR 1ST INGUN HRNA AGE 6 YRS/> REDUCIBLE 12/07/2000 Hernia repair, inguinal VASECTOMY UNI/BI SPX W/POSTOP SEMEN EXAMS 05/2005 ALLERGIES Bactrim Ds [Sulfamethoxazole-Trimethoprim], Lisinopril, Nystatin, and Sulfa (Sulfonamide Antibiotics) MEDICATIONS budesonide-formoterol (SYMBICORT) 80-4.5 mcg/actuation inhaler Inhale 1 Puff as instructed two times a day. Use with spacer. Rinse mouth out after use. montelukast (SINGULAIR) 10 mg tablet Take 1 tablet by mouth daily at bedtime. irbesartan (AVAPRO) 150 mg tablet Take 1 tablet by mouth daily at bedtime. felodipine ER (PLENDIL) 5 mg 24 hr tablet Take 1 tablet by mouth once daily. albuterol HFA (PROVENTIL HFA, VENTOLIN HFA) 90 mcg/actuation inhaler Inhale 2 Puffs as instructed every 4 hours as needed for wheezing/shortness of breath (chest tightness or cough, use with spacer. Can use 15 min pre-exercise). hyoscyamine (LEVSIN) 0.125 mg tablet Take 2 tablets by mouth every 6 hours as needed (cramping, diarrhea). cetirizine (ZYRTEC) 10 mg tablet Take 1 tablet by mouth once daily as needed for cold/allergy symptoms. THERAPEUTIC MULTIVITAMIN TAB Take one(1) tablet daily. FAMILY HISTORY Problem Relation Age of Onset Hypertension Mother Lipids Mother Diabetes Father Cancer Father 70 Pancreatic Cancer Asthma Sister Ischemic Heart Disease Maternal Grandfather Pancreatic Cancer Paternal Aunt 80 - 89 Social History Tobacco Use Smoking status: Never Smokeless tobacco: Never Vaping Use Vaping status: Never Used Substance Use Topics Alcohol use: Yes Comment: 1-2 per week Drug use: No BP 113/83 Pulse 86 Temp 36.7 C (98 F) Resp 20 Wt 93.4 kg (205 lb 14.6 oz) SpO2 96% BMI 28.72 kg/m Review of Systems Constitutional: Positive for malaise/fatigue. Negative for chills and fever. HENT: Positive for congestion. Negative for ear discharge, ear pain, sinus pain and sore throat. Eyes: Negative for blurred vision, pain, discharge and redness. Respiratory: Positive for cough, shortness of breath and wheezing. Negative for hemoptysis, sputum production and stridor. Cardiovascular: Negative for chest pain. Gastrointestinal: Negative for abdominal pain, diarrhea, nausea and vomiting. Musculoskeletal: Positive for myalgias. Skin: Negative for itching and rash. Neurological: Negative for dizziness and headaches. Objective Physical Exam Constitutional: General: He is not in acute distress. Appearance: He is not diaphoretic. HENT: Head: Normocephalic. Jaw: No trismus, tenderness, swelling or pain on movement. Nose: Congestion present. Mouth/Throat: Mouth: Mucous membranes are moist. Pharynx: Oropharynx is clear. Uvula midline. No pharyngeal swelling, oropharyngeal exudate, posterior oropharyngeal erythema or uvula swelling. Eyes: Conjunctiva/sclera: Conjunctivae normal. Pupils: Pupils are equal, round, and reactive to light. Cardiovascular: Rate and Rhythm: Normal rate and regular rhythm. Heart sounds: Normal heart sounds. Pulmonary: Effort: Pulmonary effort is normal. No tachypnea, accessory muscle usage or respiratory distress. Breath sounds: No stridor. Rhonchi present. No wheezing or rales. Abdominal: General: There is no distension. Palpations: Abdomen is soft. Tenderness: There is no abdominal tenderness. There is no guarding or rebound. Musculoskeletal: Cervical back: Normal range of motion and neck supple. No edema, erythema, rigidity or tenderness. No pain with movement. Normal range of motion. Lymphadenopathy: Cervical: No cervical adenopathy. Skin: General: Skin is warm and dry. Neurological: Mental Status: He is alert and oriented to person, place, and time. ASSESSMENT/PLAN: 1. Acute cough - ICD9: 786.2, ICD10: R05.1 (primary diagnosis) - XR CHEST 2V FRONTAL/LAT 2. Community acquired pneumonia, unspecified laterality - ICD9: 486, ICD10: J18.9 IMPRESSION: Improved bilaterally. No persistent pleural fluid. Focus of persistent atelectasis and/or consolidation in the right middle lobe Continued follow up to document complete resolution in the right middle lobe is recommended. Diagnosis CAP. Placed on doxycycline and prednisone. Patient was educated on supportive therapies. Patient will follow up with primary care provider repeat chest x-ray and reevaluation as discussed. patient was instructed to immediately proceed to emergency room for any new, worsening, or symptoms lasting longer than anticipated. The patient's clinical presentation is otherwise unremarkable at this time. Based on exam and clinical finding, the patient is stable for discharge. Plan of care was discussed with patient. Patient verbalizes understanding and agrees to plan of care. This note was generated using [employer] software. It may contain errors in wording, punctuation, or spelling. Ronald Gonsalves APRN.CAMPOS documented in this encounter [facility] 03-30-2024 Telephone encounter Note Prescription Refill Information The patient has been identified by name and date of : Yes Caregiver verified no other encounters exist for this prescription request: Yes Caregiver confirmed with patient/requestor that no other refills are due, in the near future, with this provider at this time: Yes The last office visit in the department: 08/17/23 Does the patient have a future office visit with this provider/department: Yes Requested Prescriptions Pending Prescriptions Disp Refills budesonide-formoterol (SYMBICORT) 80-4.5 mcg/actuation inhaler 3 g 3 Sig: Inhale 1 Puff as instructed two times a day. Use with spacer. Rinse mouth out after use. Mitzy Rodríguez LPN March 30, 2024 8:50 AM [facility] 03-30-2024 Miscellaneous Notes Prescription Refill Information The patient has been identified by name and date of : Yes Caregiver verified no other encounters exist for this prescription request: Yes Caregiver confirmed with patient/requestor that no other refills are due, in the near future, with this provider at this time: Yes The last office visit in the department: 08/17/23 Does the patient have a future office visit with this provider/department: Yes Requested Prescriptions Pending Prescriptions Disp Refills budesonide-formoterol (SYMBICORT) 80-4.5 mcg/actuation inhaler 3 g 3 Sig: Inhale 1 Puff as instructed two times a day. Use with spacer. Rinse mouth out after use. Mitzy Rodríguez LPN March 30, 2024 8:50 AM documented in this encounter [facility] 01-10-2024 Telephone encounter Note Prescription Refill Information The patient has been identified by name and date of : Yes Caregiver verified no other encounters exist for this prescription request: Yes Caregiver confirmed with patient/requestor that no other refills are due, in the near future, with this provider at this time: Yes The last office visit in the department: 08/17/23 Does the patient have a future office visit with this provider/department: Yes 08/17/24 Requested Prescriptions Pending Prescriptions Disp Refills irbesartan (AVAPRO) 150 mg tablet 90 tablet 3 Sig: Take 1 tablet by mouth daily at bedtime. Zonia Hernandez LPN January 10, 2024 9:40 AM [facility] 01-10-2024 Miscellaneous Notes Prescription Refill Information The patient has been identified by name and date of : Yes Caregiver verified no other encounters exist for this prescription request: Yes Caregiver confirmed with patient/requestor that no other refills are due, in the near future, with this provider at this time: Yes The last office visit in the department: 08/17/23 Does the patient have a future office visit with this provider/department: Yes 08/17/24 Requested Prescriptions Pending Prescriptions Disp Refills irbesartan (AVAPRO) 150 mg tablet 90 tablet 3 Sig: Take 1 tablet by mouth daily at bedtime. Zonia Hernandez LPN January 10, 2024 9:40 AM documented in this encounter [facility] 01-10-2024 Telephone encounter Note Prescription Refill Information The patient has been identified by name and date of : Yes Caregiver verified no other encounters exist for this prescription request: Yes Caregiver confirmed with patient/requestor that no other refills are due, in the near future, with this provider at this time: Yes The last office visit in the department: 08/17/23 Does the patient have a future office visit with this provider/department: Yes 08/17/24 Requested Prescriptions Pending Prescriptions Disp Refills montelukast (SINGULAIR) 10 mg tablet 90 tablet 3 Sig: Take 1 tablet by mouth daily at bedtime. Zonia Hernandez LPN January 10, 2024 9:38 AM [facility] 01-10-2024 Miscellaneous Notes Prescription Refill Information The patient has been identified by name and date of : Yes Caregiver verified no other encounters exist for this prescription request: Yes Caregiver confirmed with patient/requestor that no other refills are due, in the near future, with this provider at this time: Yes The last office visit in the department: 08/17/23 Does the patient have a future office visit with this provider/department: Yes 08/17/24 Requested Prescriptions Pending Prescriptions Disp Refills montelukast (SINGULAIR) 10 mg tablet 90 tablet 3 Sig: Take 1 tablet by mouth daily at bedtime. Zonia Hernandez LPN January 10, 2024 9:38 AM documented in this encounter [facility] 10-06-2023 Telephone encounter Note Prescription Refill Information The patient has been identified by name and date of : Yes Caregiver verified no other encounters exist for this prescription request: Yes Caregiver confirmed with patient/requestor that no other refills are due, in the near future, with this provider at this time: Yes The last office visit in the department: 08/17/23 Does the patient have a future office visit with this provider/department: Yes 08/17/24 Requested Prescriptions Pending Prescriptions Disp Refills felodipine ER (PLENDIL) 5 mg 24 hr tablet 90 tablet 3 Sig: Take 1 tablet by mouth once daily. Zonia Hernandez LPN October 06, 2023 7:39 AM [facility] 10-06-2023 Miscellaneous Notes Prescription Refill Information The patient has been identified by name and date of : Yes Caregiver verified no other encounters exist for this prescription request: Yes Caregiver confirmed with patient/requestor that no other refills are due, in the near future, with this provider at this time: Yes The last office visit in the department: 08/17/23 Does the patient have a future office visit with this provider/department: Yes 08/17/24 Requested Prescriptions Pending Prescriptions Disp Refills felodipine ER (PLENDIL) 5 mg 24 hr tablet 90 tablet 3 Sig: Take 1 tablet by mouth once daily. Zonia Hernandez LPN October 06, 2023 7:39 AM documented in this encounter [facility] 08-27-2023 Telephone encounter Note 3rd call attempt,left vm [facility] 08-27-2023 Miscellaneous Notes 3rd call attempt,left vm 2nd attempt: LVM for patient to schedule appointment. [employer] message sent with scheduling phone numbers for Medical Genetics. 1st Attempt.. Called pt to schedule.. Unable to LVM PSS please contact Patient to schedule. Gracy Ibarra LPN ASSESSMENT/PLAN: 1. Family history of pancreatic cancer - ICD9: V16.0, ICD10: Z80.0 - CONSULT TO MEDICAL GENETICS - CANCER Franc Coffman MD Referral states "family history of pancreatic cancer". We don't see patients for family h/o cancer. Would you like patient to see genetic counselor? If so, I pended the order for you. Jeanette De La Rosa LPN Patient had a consult to oncology placed by Dr. Coffman. Please contact patient to schedule. Best number to reach him is [phone]. documented in this encounter [facility] 08-25-2023 Telephone encounter Note 2nd attempt: LVM for patient to schedule appointment. [employer] message sent with scheduling phone numbers for Medical Genetics. [facility] 08-20-2023 Telephone encounter Note 1st Attempt.. Called pt to schedule.. Unable to LVM [facility] 08-17-2023 Telephone encounter Note PSS please contact Patient to schedule. Gracy Ibarra LPN [facility] 08-17-2023 Telephone encounter Note ASSESSMENT/PLAN: 1. Family history of pancreatic cancer - ICD9: V16.0, ICD10: Z80.0 - CONSULT TO MEDICAL GENETICS - CANCER Franc Coffman MD [facility] 08-17-2023 Telephone encounter Note Referral states "family history of pancreatic cancer". We don't see patients for family h/o cancer. Would you like patient to see genetic counselor? If so, I pended the order for you. Jeanette De La Rosa LPN [facility] 08-17-2023 Telephone encounter Note Patient had a consult to oncology placed by Dr. Coffman. Please contact patient to schedule. Best number to reach him is [phone]. [facility] 08-17-2023 History of Presen t illness Narrative This note was created using [employer]. Subjective Patient presents with: Physical F/U 6 months Alirio Porras is a 52 year old male. ASTHMA CONTROL TEST Date: 08/17/2023 In the last 4 weeks, how much of the time did your asthma keep you from getting as much done at work or home that you wanted to do? None of the time (5) In the last 4 weeks, how often have you had shortness of breath? Not at all (5) In the last 4 weeks, how often did your asthma symptoms (wheezing, coughing, shortness of breath, chest tightness or pain) wake you up at night or earlier than usual? Not at all (5) In the last 4 weeks, how often have you used your rescue inhaler or nebulizer medication (such as Albuterol, Proventil, Ventolin, Maxair, Xoponex, or Primatene Mist)? Once a week or less (4) In the last 4 weeks, how would you rate your asthma control? Completely controlled (5) Total: more than 20 He was doing well. He noted a bulge in his umbilical area when straining or lifting, otherwise asymptomatic. His hypertension, allergies, and asthma were controlled. His irritable bowel symptoms need improvement, and main trigger is travel and stress. Levsin barely kept symptoms manageable. He gave a family history of pancreatic cancer, and had questions about screening. He goes to the [facility] for check ups, and [facility] periodically for skin examination. Review of Systems Constitutional: Negative for fatigue and unexpected weight change. HENT: Negative for congestion and rhinorrhea. Eyes: Negative for visual disturbance. Respiratory: Negative. Cardiovascular: Negative for chest pain, palpitations and leg swelling. Gastrointestinal: Negative for abdominal pain, blood in stool, nausea and vomiting. Genitourinary: Negative for difficulty urinating and dysuria. Musculoskeletal: Negative. Skin: Negative for color change. Neurological: Negative for dizziness, light-headedness and headaches. PAST MEDICAL HISTORY Diagnosis Date Angioedema 07/17/2005 angioedema from lisinopril Asthma Conversion disorder Esophageal reflux Essential hypertension 10/19/2002 Pure hyperglyceridemia Pure hyperglyceridemia 04/10/2005 Rupture of Achilles tendon, traumatic 11/30/2013 Right side. Seasonal allergic rhinitis 06/26/2010 Unspecified asthma(493.90) 1980 childhood asthma PAST SURGICAL HISTORY Procedure Laterality Date COLONOSCOPY 06/06/2021 repeat in 10 years ESOPHAGOGASTRODUODENOSCOPY TRANSORAL DIAGNOSTIC 10/25/2006 EGD HERNIA REPAIR HX PAST SURGICAL HISTORY OF Right 06/12/2013 open repair right Achilles tendon; Dr Chon Cedeno RPR 1ST INGUN HRNA AGE 6 YRS/> REDUCIBLE 12/07/2000 Hernia repair, inguinal VASECTOMY UNI/BI SPX W/POSTOP SEMEN EXAMS 05/2005 FAMILY HISTORY Problem Relation Age of Onset Hypertension Mother Lipids Mother Diabetes Father Cancer Father 70 Pancreatic Cancer Asthma Sister Ischemic Heart Disease Maternal Grandfather Pancreatic Cancer Paternal Aunt 80 - 89 Social History Tobacco Use Smoking status: Never Smokeless tobacco: Never Vaping Use Vaping Use: Never used Substance Use Topics Alcohol use: Yes Comment: 1-2 per week Drug use: No ALLERGIES Allergen Reactions Bactrim Ds [Sulfame* Intolerance UNKNOWN Lisinopril Swelling Nystatin Rash Questionable rash Sulfa (Sulfonamide * Angioedema Current Outpatient Medications Medication Sig irbesartan (AVAPRO) 150 mg tablet Take 1 tablet by mouth daily at bedtime. budesonide-formoterol (SYMBICORT) 80-4.5 mcg/actuation inhaler Inhale 1 Puff as instructed two times a day. Use with spacer. Rinse mouth out after use. montelukast (SINGULAIR) 10 mg tablet Take 1 tablet by mouth daily at bedtime. felodipine ER (PLENDIL) 5 mg 24 hr tablet Take 1 tablet by mouth once daily. cetirizine (ZYRTEC) 10 mg tablet Take 1 tablet by mouth once daily as needed for cold/allergy symptoms. THERAPEUTIC MULTIVITAMIN TAB Take one(1) tablet daily. albuterol HFA (PROVENTIL HFA, VENTOLIN HFA) 90 mcg/actuation inhaler Inhale 2 Puffs as instructed every 4 hours as needed for wheezing/shortness of breath (chest tightness or cough, use with spacer. Can use 15 min pre-exercise). hyoscyamine (LEVSIN) 0.125 mg tablet Take 2 tablets by mouth every 6 hours as needed (cramping, diarrhea). montelukast (SINGULAIR) 10 mg tablet Take 1 tablet by mouth daily at bedtime for 15 days. No current facility-administered medications for this visit. Objective BP 122/76 (BP Site: Left Arm, BP Position: Sitting, BP Cuff Size: Large Adult) Pulse 68 Temp 36.4 C (97.5 F) (Temporal) Ht 180.3 cm (5' 11") Wt 93.9 kg (207 lb) BMI 28.87 kg/m Physical Exam Constitutional: Appearance: Normal appearance. HENT: Head: Normocephalic. Nose: Nose normal. Eyes: General: No scleral icterus. Conjunctiva/sclera: Conjunctivae normal. Cardiovascular: Rate and Rhythm: Normal rate and regular rhythm. Heart sounds: No murmur heard. No gallop. Pulmonary: Effort: No respiratory distress. Breath sounds: No wheezing, rhonchi or rales. Abdominal: General: There is no distension. Palpations: Abdomen is soft. There is no mass. Tenderness: There is no abdominal tenderness. Hernia: A hernia is present. Hernia is present in the umbilical area. Comments: Small umbilical hernia. Musculoskeletal: General: No tenderness. Normal range of motion. Right lower leg: No edema. Left lower leg: No edema. Lymphadenopathy: Cervical: No cervical adenopathy. Skin: Findings: No rash. Neurological: General: No focal deficit present. Mental Status: He is alert. Gait: Gait normal. Depression Screening PHQ-2 Score AZIZA-2 Total Score 08/17/2023 0 0 Depression screening tool completed and reviewed. Based on score and interview, patient is not at risk for depression. Screening tool discussed with patient, and I recommended no further intervention at this time. Latest Ref Rng 08/16/2023 Protein, Total 6.3 - 8.0 g/dL 6.7 Albumin 3.9 - 4.9 g/dL 4.2 Calcium 8.5 - 10.2 mg/dL 9.4 Bilirubin, Total 0.2 - 1.3 mg/dL 0.4 Alkaline Phosphatase 38 - 113 U/L 92 AST 14 - 40 U/L 19 ALT 10 - 54 U/L 23 Glucose 74 - 99 mg/dL 105 (H) BUN 9 - 24 mg/dL 18 Creatinine 0.73 - 1.22 mg/dL 1.12 Sodium 136 - 144 mmol/L 140 Potassium 3.7 - 5.1 mmol/L 3.9 Chloride 97 - 105 mmol/L 105 CO2 22 - 30 mmol/L 25 Anion Gap 9 - 18 mmol/L 10 eGFR >=60 mL/min/1.73m 80 Cholesterol, Total <200 mg/dL 178 Triglyceride <150 mg/dL 410 (H) HDL Cholesterol >39 mg/dL 27 (L) Non HDL Cholesterol <130 mg/dL 151 (H) Fasting Time hrs 12 VLDL Cholesterol <30 mg/dL -- VLDL Cholesterol 58 (H) TC:HDL Ratio <5.10 6.59 (H) LDL Cholesterol -- LDL:HDL Ratio -- Hemoglobin A1C 4.3 - 5.6 % 5.2 Estimated Average Glucose mg/dL 103 LDL Cholesterol, Direct <100 mg/dL 93 Legend: (H) High (L) Low Assessment and Plan : 1. Encounter for annual physical exam - ICD9: V70.0, ICD10: Z00.00 (primary diagnosis) - Counseled on healthy diet and regular exercise - Discussed need for and benefit of weight loss. BMI 28.87 kg/(m^2) - Follow up for annual exam in one year 2. Essential hypertension - ICD9: 401.9, ICD10: I10 - Controlled - Continue current medications - Encouraged sodium restriction, DASH or Mediterranean diet - Recommend regular aerobic exercise - Discussed need for and benefit of weight loss. BMI 28.87 kg/(m^2) 3. Mild intermittent asthma without complication - ICD9: 493.90, ICD10: J45.20 - Mild intermittent asthma stable - Continue current medications - Avoidance of triggers recommended - ALBUTEROL SULFATE HFA 90 MCG/ACTUATION AEROSOL INHALER 4. Pure hyperglyceridemia - ICD9: 272.1, ICD10: E78.1 - Controlled - Counseled on healthy diet and regular exercise - Discussed need for and benefit of weight loss. BMI 28.87 kg/(m^2) 5. Irritable bowel syndrome with both constipation and diarrhea - ICD9: 564.1, ICD10: K58.2 Shared medical decision making was done. We agreed to try 1 or 2 tablets as needed for IBS symptoms. - HYOSCYAMINE SULFATE 0.125 MG TABLET 6. Seasonal allergic rhinitis, unspecified trigger - ICD9: 477.9, ICD10: J30.2 - Controlled. 7. Umbilical hernia without obstruction and without gangrene - ICD9: 553.1, ICD10: K42.9 - Early, small. Observe only. Weight loss. Avoid bearing down. Call for symptoms. 8. Family history of pancreatic cancer - ICD9: V16.0, ICD10: Z80.0 - He was interested in an opinion about screening. He had looked into a cancer marker that was not covered. We discussed there are no screening guidelines recommended. - CONSULT TO ONCOLOGY Franc Coffman MD documented in this encounter [facility] 06-23-2023 History of Presen t illness Narrative Radiology Service Progress Note PATIENT NAME: Alirio Porras DATE OF SERVICE: June 23, 2023 TIME: 12:10 PM PATIENT IDENTITY VERIFICATION COMPLETED USING TWO (2) IDENTIFIERS: Name and Date of confirmed by patient verbally. FALL SCREENING: Has the patient had 2 falls in the last year or 1 fall with injury or currently using an Ambulatory Assistive Device (Walker, Cane, Wheelchair, Crutches, etc.)? No PATIENT GENDER DATA: Male PATIENT RELEVANT IMPLANT DATA REVIEWED: Not Applicable PATIENT PRESENTS WITH AN IMPLANTABLE OR ATTACHED BACKBREAKER: No RADIOLOGY DEPARTMENT: General X-ray: Exam(s) Completed: Chest X-Ray PERIPHERAL IV DATA: Not applicable SIGNED BY: RT Val(R) June 23, 2023 12:10 PM documented in this encounter [facility] 06-21-2023 Instructions Arron Dick, CLIENT SERVICES ANALYST.VAULT [employer]KER - 06/21/2023 7:34 AM EDT GENERAL INFORMATION: Pneumonia is a lung infection caused by bacteria, viruses, or bacteria-like germs. It usually cannot be spread to other people. INSTRUCTIONS: 1. If you are given a prescription for antibiotics, take them as ordered by your doctor until they are all gone. 2. Use a cool-mist humidifier or vaporizer to increase air moisture. This will make it easier for you to breathe. Do not use hot steam. 3. Rest in until your temperature is normal (98.6 F or 37 C) and your chest pain and shortness of breath are gone. 4. Slowly restart your normal activities. You may feel weak and tired for up to six weeks. 5. Drink at least one glass of water or other liquid every hour. This will help thin sputum and make it easier to cough up. 6. If you have chest pain, applying a heating pad or warm compresses for 10 to 20 minutes several times a day to the painful area may lessen the pain. 7. Take several deep breaths and then cough frequently during the day. This will help get rid of the infection. 8. You may take medicines that you can buy without a prescription to treat pain and fever. Use cough medicine only if absolutely necessary as coughing helps clear the infection. CONTACT YOUR DOCTOR IF: 1. Your temperature is over 102 F (39 C). 2. Your chest pain, fever or chills do not get better with medicine in 2-3 days. 3. You develop nausea, vomiting or diarrhea. 4. You are coughing up large amounts of bloody sputum. 5. You have any problems that may be related to the medicine that you are taking (such as rash, itching, swelling, or stomach pain). RETURN TO THE EMERGENCY DEPARTMENT IF: 1. You have a lot of trouble breathing or you have dark or bluish fingernails, toenails, or skin. 2. You have a severe headache, neck stiffness, or feel confused. documented in this encounter [facility] 06-21-2023 History of Presen t illness Narrative This note was created using [employer]. Subjective Alirio Porras is a 52 year old male. HPI Pt developed cold like symptoms about 8 days ago. Pt has a hx of asthma and usually uses mucinex but symptoms are not improving.Pt developed a cough about 5 days ago. Pt usually needs steroids to help. Pt had a fever of 100 yesterday. Review of Systems Constitutional: Positive for fever. HENT: Positive for postnasal drip and rhinorrhea. Negative for sore throat. Respiratory: Positive for cough and shortness of breath. All other systems reviewed and are negative. Objective BP 128/78 Pulse 67 Temp 36.7 C (98 F) (Tympanic) Resp 16 Wt 95.3 kg (210 lb 1.6 oz) SpO2 95% BMI 29.30 kg/m Physical Exam Vitals and nursing note reviewed. Constitutional: General: He is not in acute distress. Appearance: Normal appearance. He is not ill-appearing. HENT: Head: Normocephalic. Mouth/Throat: Mouth: Mucous membranes are moist. Eyes: Conjunctiva/sclera: Conjunctivae normal. Cardiovascular: Rate and Rhythm: Normal rate and regular rhythm. Pulmonary: Effort: Pulmonary effort is normal. Breath sounds: Rhonchi and rales present. Musculoskeletal: General: Normal range of motion. Cervical back: Normal range of motion. Skin: General: Skin is warm and dry. Neurological: General: No focal deficit present. Mental Status: He is alert. Psychiatric: Mood and Affect: Mood normal. Behavior: Behavior normal. Assessment and Plan ASSESSMENT/PLAN: 1. Bacterial pneumonia - ICD9: 482.9, ICD10: J15.9 As patient has a recent fever and has mild rales and rhonchi throughout I do feel that clinically patient has pneumonia and was started on medications as noted below. Patient's vital signs are otherwise unremarkable with pulse ox 95% on room air. - PREDNISONE 50 MG TABLET - DOXYCYCLINE MONOHYDRATE 100 MG CAPSULE Arron Dick APRN.VAULT MAKER documented in this encounter [facility] 02-22-2023 Miscellaneous Notes Patient has been identified by name and date of : Yes Patient phones for refill(s): Requested Prescriptions Pending Prescriptions Disp Refills irbesartan (AVAPRO) 150 mg tablet 90 tablet 3 Sig: Take 1 tablet by mouth daily at bedtime. budesonide-formoterol (SYMBICORT) 80-4.5 mcg/actuation inhaler 3 g 3 Sig: Inhale 1 Puff as instructed two times a day. Use with spacer. Rinse mouth out after use. Date of last office visit in primary care: 02/12/2023 Date of next office visit in primary care: 08/17/2023 Last 2 Encounter Wt Readings: Date: Wt: 02/12/2023 93 kg (205 lb) 11/10/2022 93 kg (205 lb) Previous labs/tests for medication: Blood Pressure: BUN (mg/dL) Date Value 08/07/2022 16 01/22/2021 11 Sodium (mmol/L) Date Value 08/07/2022 138 01/22/2021 139 Last 1 Encounter BP Readings: Date: BP: 02/12/2023 118/81 Please advise. Thank you. Gracy Ibarra LPN. documented in this encounter [facility] 02-12-2023 History of Presen t illness Narrative CC: Patient presents with: Follow Up HPI Alirio Porras is a 52 year old male who presents today for above. HTN-Medication changes:No Taking all medications as prescribed: Yes Side effects: No Home BP's: Yes 130's/80's Denies: headache, chest pain, palpitations, dyspnea, and peripheral edema. Last 3 Encounter BP Readings: Date: BP: 02/12/2023 118/81 11/10/2022 127/86 08/10/2022 132/86 Asthma-Symptoms: chest tightness and cough. Nocturnal Symptoms: No. Asthma is not limiting daily activities or exercise. Current pulmonary medications are Symbicort and Singulair. Triggers include: upper respiratory infections and pollens/allergens . IBS: no significant issues unless he is traveling. Takes Bentyl as needed with occasional relief. No new or worsening symptoms Review of Systems See HPI PAST MEDICAL HISTORY Diagnosis Date Angioedema 07/17/2005 angioedema from lisinopril Asthma Conversion disorder Esophageal reflux Essential hypertension 10/19/2002 Pure hyperglyceridemia Pure hyperglyceridemia 04/10/2005 Rupture of Achilles tendon, traumatic 11/30/2013 Right side. Seasonal allergic rhinitis 06/26/2010 Unspecified asthma(493.90) 1980 childhood asthma PAST SURGICAL HISTORY Procedure Laterality Date COLONOSCOPY 06/06/2021 repeat in 10 years ESOPHAGOGASTRODUODENOSCOPY TRANSORAL DIAGNOSTIC 10/25/2006 EGD HERNIA REPAIR HX PAST SURGICAL HISTORY OF Right 06/12/2013 open repair right Achilles tendon; Dr Chon Cedeno RPR 1ST INGUN HRNA AGE 6 YRS/> REDUCIBLE 12/07/2000 Hernia repair, inguinal VASECTOMY UNI/BI SPX W/POSTOP SEMEN EXAMS 05/2005 ALLERGIES Bactrim Ds [Sulfamethoxazole-Trimethoprim], Environmental [Other], Lisinopril, Nystatin, and Sulfa (Sulfonamide Antibiotics) MEDICATIONS hyoscyamine (LEVSIN) 0.125 mg tablet Take 1 tablet by mouth every 6 hours as needed (cramping, diarrhea). montelukast (SINGULAIR) 10 mg tablet Take 1 tablet by mouth daily at bedtime. felodipine ER (PLENDIL) 5 mg 24 hr tablet Take 1 tablet by mouth once daily. meloxicam (MOBIC) 15 mg tablet Take 1 tablet by mouth once daily. With food. irbesartan (AVAPRO) 150 mg tablet Take 1 tablet by mouth daily at bedtime. budesonide-formoterol (SYMBICORT) 80-4.5 mcg/actuation inhaler Inhale 1 Puff as instructed twice daily. Use with spacer. Rinse mouth out after use. albuterol HFA (PROVENTIL HFA, VENTOLIN HFA) 90 mcg/actuation inhaler Inhale 2 Puffs as instructed every 4 hours as needed for wheezing/shortness of breath (chest tightness or cough, use with spacer. Can use 15 min pre-exercise). cetirizine (ZYRTEC) 10 mg tablet Take 1 tablet by mouth once daily as needed for cold/allergy symptoms. THERAPEUTIC MULTIVITAMIN TAB Take one(1) tablet daily. FAMILY HISTORY Problem Relation Age of Onset Hypertension Mother Lipids Mother Diabetes Father Cancer Father Pancreatic Cancer Asthma Sister Ischemic Heart Disease Maternal Grandfather Social History Tobacco Use Smoking status: Never Smokeless tobacco: Never Vaping Use Vaping Use: Never used Substance Use Topics Alcohol use: Yes Comment: 1-2 per week Drug use: No BP 118/81 Pulse 77 Resp 16 Wt 93 kg (205 lb) BMI 28.59 kg/m Physical Exam Health maintenance reviewed with patient: Hepatitis B Vaccine(1 of 3 - 3-dose series) Never done Shingrix Vaccine(1 of 2) Never done Depression Assessment due on 03/29/2022 Influenza Vaccine(1) due on 11/27/2022 Covid-19 Vaccine( season) due on 11/27/2022 BP Controlled (<130/80) due on 02/10/2023 Annual PCP Team Chronic Disease Visit due on 11/11/2023 Diabetes Screening due on 11/10/2025 Lipid Screening due on 11/07/2027 Colorectal Cancer Screening due on 06/07/2031 DTaP,Tdap,Td Vaccine(10 - Td or Tdap) due on 08/10/2032 Hepatitis C Screening Completed HIV Screening Completed Pneumococcal Vaccine Completed Spirometry Discontinued DATA REVIEWED: Most recent labs Depression Screening PHQ-2 Score PHQ-9 Score AZIZA-2 Total Score 02/12/2023 0 - - Depression screening tool completed and reviewed. Based on score and interview, patient is not at risk for depression. Screening tool discussed with patient, and I recommended no further intervention at this time. ASSESSMENT/PLAN: 1. Essential hypertension - ICD9: 401.9, ICD10: I10 (primary diagnosis) - Controlled - Continue current medications - Recommend home blood pressure monitoring, to bring results to next visit - Encouraged sodium restriction, DASH or Mediterranean diet - IRBESARTAN 150 MG TABLET - COMP METABOLIC PANEL 2. Mild intermittent asthma without complication - ICD9: 493.90, ICD10: J45.20 Stable - BUDESONIDE-FORMOTEROL HFA 80 MCG-4.5 MCG/ACTUATION AEROSOL INHALER - ALBUTEROL SULFATE HFA 90 MCG/ACTUATION AEROSOL INHALER 3. Pure hyperglyceridemia - ICD9: 272.1, ICD10: E78.1 - Control undetermined, due for labs - LIPID PANEL BASIC - COMP METABOLIC PANEL 4. Impaired glucose metabolism - ICD9: 790.29, ICD10: R73.09 Recheck in 6 months - HGB A1C 5. Encounter for immunization - ICD9: V03.89, ICD10: Z23 - INFLUENZA VACCINE, AGE 6 MO - 64 YR, QUADRIVALENT (AFLURIA, FLULAVAL, FLUZONE) - [employer] COVID-19 VACCINE (2022- SEASON) AGE 12+ YR Prescription instructions reviewed with patient as applicable. Potential red flag symptoms discussed with the patient. Reviewed appropriate action plan to take if red flag symptoms occur. Patient agreeable to treatment plan. Maria Fernanda Seth APRN.VAULT MAKER documented in this encounter [facility] 12-28-2022 Miscellaneous Notes [employer] [facility] sent: Alirio our office did receive your refill request for Felodipine (Plendil) however, a new prescription was sent to [facility] on 10/06/2022 for 90 tablets, 3 refills. Please check with [facility]. I will put the refill request through to Dr. Coffman for Levsin. Last office visit: 11/10/2022 Annual: 02/12/2023 Gracy Ibarra LPN documented in this encounter [facility] 11-10-2022 History of Presen t illness Narrative CC Patient presents with: F/U 3 Month: Bp HPI Alirio Porras is a 52 year old male who presents to the office for blood pressure. His visit today is for follow-up. Patient was last seen for this approximately 3 months ago. Medication changes: No Taking all medications as prescribed: Yes Side effects: No Home BP's: Yes 120's/80's on average Denies: headache, chest pain, palpitations, dyspnea, and peripheral edema. Last 4 Encounter BP Readings: Date: BP: 11/10/2022 127/86 08/10/2022 132/86 02/10/2022 120/80 02/06/2022 136/88 Last 3 Encounter Wt Readings: Date: Wt: 11/10/2022 93 kg (205 lb) 08/10/2022 95.7 kg (211 lb) 02/10/2022 95.3 kg (210 lb) REVIEW OF SYSTEMS See HPI PAST MEDICAL HISTORY Diagnosis Date Angioedema 07/17/2005 angioedema from lisinopril Asthma Conversion disorder Esophageal reflux Essential hypertension 10/19/2002 Pure hyperglyceridemia Pure hyperglyceridemia 04/10/2005 Rupture of Achilles tendon, traumatic 11/30/2013 Right side. Seasonal allergic rhinitis 06/26/2010 Unspecified asthma(493.90) 1980 childhood asthma PAST SURGICAL HISTORY Procedure Laterality Date COLONOSCOPY 06/06/2021 repeat in 10 years ESOPHAGOGASTRODUODENOSCOPY TRANSORAL DIAGNOSTIC 10/25/2006 EGD HERNIA REPAIR HX PAST SURGICAL HISTORY OF Right 06/12/2013 open repair right Achilles tendon; Dr Chon Cedeno RPR 1ST INGUN HRNA AGE 6 YRS/> REDUCIBLE 12/07/2000 Hernia repair, inguinal VASECTOMY UNI/BI SPX W/POSTOP SEMEN EXAMS 05/2005 ALLERGIES Bactrim Ds [Sulfamethoxazole-Trimethoprim], Environmental [Other], Lisinopril, Nystatin, and Sulfa (Sulfonamide Antibiotics) MEDICATIONS felodipine ER (PLENDIL) 5 mg 24 hr tablet Take 1 tablet by mouth once daily. meloxicam (MOBIC) 15 mg tablet Take 1 tablet by mouth once daily. With food. irbesartan (AVAPRO) 150 mg tablet Take 1 tablet by mouth daily at bedtime. budesonide-formoterol (SYMBICORT) 80-4.5 mcg/actuation inhaler Inhale 1 Puff as instructed twice daily. Use with spacer. Rinse mouth out after use. montelukast (SINGULAIR) 10 mg tablet Take 1 tablet by mouth daily at bedtime. albuterol HFA (PROVENTIL HFA, VENTOLIN HFA) 90 mcg/actuation inhaler Inhale 2 Puffs as instructed every 4 hours as needed for wheezing/shortness of breath (chest tightness or cough, use with spacer. Can use 15 min pre-exercise). hyoscyamine (LEVSIN) 0.125 mg tablet Take 1 tablet by mouth every 6 hours as needed (cramping, diarrhea). cetirizine (ZYRTEC) 10 mg tablet Take 1 tablet by mouth once daily as needed for cold/allergy symptoms. THERAPEUTIC MULTIVITAMIN TAB Take one(1) tablet daily. FAMILY HISTORY Problem Relation Age of Onset Hypertension Mother Lipids Mother Diabetes Father Cancer Father Pancreatic Cancer Asthma Sister Ischemic Heart Disease Maternal Grandfather Social History Tobacco Use Smoking status: Never Smokeless tobacco: Never Vaping Use Vaping Use: Never used Substance Use Topics Alcohol use: Yes Comment: 1-2 per week Drug use: No PHYSICAL EXAM BP 127/86 Pulse 71 Resp 16 Wt 93 kg (205 lb) BMI 28.59 kg/m General Appearance: well appearing, in no acute distress, alert Pysch: mood and affect broad and appropriate DATA REVIEWED: Most recent labs Component Latest Ref Rng & Units 08/07/2022 11/06/2022 Cholesterol, Total <200 mg/dL 180 176 Triglyceride <150 mg/dL 559 (H) 419 (H) HDL Cholesterol >39 mg/dL 25 (L) 26 (L) Non HDL Cholesterol <130 mg/dL 155 (H) 150 (H) Fasting Time hrs 10 12 VLDL Cholesterol TC:HDL Ratio <5.10 7.20 (H) 6.77 (H) LDL Cholesterol LDL:HDL Ratio Component Latest Ref Rng & Units 08/07/2022 11/06/2022 LDL Cholesterol, Direct <100 mg/dL 73 81 VLDL Cholesterol <30 mg/dL 82 (H) 69 (H) Component Latest Ref Rng & Units 11/10/2022 Hemoglobin A1C (POCT) 4.2 - 5.6 % 5.2 ASSESSMENT/PLAN: 1. Essential hypertension - ICD9: 401.9, ICD10: I10 (primary diagnosis) - Controlled - Continue current medications - Recommend home blood pressure monitoring, to bring results to next visit - Encouraged sodium restriction, DASH or Mediterranean diet - Recommend regular aerobic exercise 2. Pure hyperglyceridemia - ICD9: 272.1, ICD10: E78.1 - Improving control - Counseled on healthy diet and regular exercise 3. Impaired glucose metabolism - ICD9: 790.29, ICD10: R73.09 Improved, normal HgbA1c - HEMOGLOBIN A1C (POC) Prescription instructions reviewed with patient as applicable. Potential red flag symptoms discussed with the patient. Reviewed appropriate action plan to take if red flag symptoms occur. Patient agreeable to treatment plan Maria Fernanda Seth APRN.CNP documented in this encounter [facility] 10-05-2022 Miscellaneous Notes CARISA: 08/10/2022 Last refill: 02/10/2022 QTY: 90 Refills: 3 documented in this encounter [facility] 08-10-2022 Instructions Maria Fernanda Seth APRN.CNP - 08/10/2022 8:21 AM EDT Let me know in 2-3 weeks if no improvement or any worsening symptoms documented in this encounter [facility] 08-10-2022 History of Presen t illness Narrative CC: Patient presents with: F/U 6 months: C/o left elbow pain HPI Alirio Porras is a 51 year old male who presents today for above. Left elbow pain-located lateral elbow. Aggravated by typing at work and carrying items in his left hand. Treated with Aleve and elbow sleeve with temporary relief. Associated with intermittent numbness/tingling in the first three fingers of his left hand. He does a lot of keyboarding at work. No injury. HTN-Medication changes:No Taking all medications as prescribed: Yes Side effects: No Home BP's: No Denies: headache, chest pain, palpitations, dyspnea, and peripheral edema. Last 3 Encounter BP Readings: Date: BP: 08/10/2022 132/86 02/10/2022 120/80 02/06/2022 136/88 Triglycerides and glucose elevated on recent labs. Patient reports poor diet and lack of exercise. Denies weight gain. IBS- only has issues when he travels, takes levsin as needed Asthma-Nocturnal Symptoms: No. Asthma is not limiting daily activities or exercise. Current pulmonary medications are Symbicort. Frequency of albuterol use is rare. Triggers include: pollens/allergens. He stopped Singulair due to elevation of Alk Phos, allergies are worse now. REVIEW OF SYSTEMS See HPI PAST MEDICAL HISTORY Diagnosis Date Angioedema 07/17/2005 angioedema from lisinopril Asthma Conversion disorder Esophageal reflux Essential hypertension 10/19/2002 Pure hyperglyceridemia Pure hyperglyceridemia 04/10/2005 Rupture of Achilles tendon, traumatic 11/30/2013 Right side. Seasonal allergic rhinitis 06/26/2010 Unspecified asthma(493.90) 1980 childhood asthma PAST SURGICAL HISTORY Procedure Laterality Date COLONOSCOPY 06/06/2021 repeat in 10 years ESOPHAGOGASTRODUODENOSCOPY TRANSORAL DIAGNOSTIC 10/25/2006 EGD HERNIA REPAIR HX PAST SURGICAL HISTORY OF Right 06/12/2013 open repair right Achilles tendon; Dr Chon Cedeno RPR 1ST INGUN HRNA AGE 6 YRS/> REDUCIBLE 12/07/2000 Hernia repair, inguinal VASECTOMY UNI/BI SPX W/POSTOP SEMEN EXAMS 05/2005 ALLERGIES Bactrim Ds [Sulfamethoxazole-Trimethoprim], Environmental [Other], Lisinopril, Nystatin, and Sulfa (Sulfonamide Antibiotics) MEDICATIONS Olopatadine (PATANASE) 0.6 % spry Use 2 Sprays in each nostril twice daily as needed (allergies). irbesartan (AVAPRO) 150 mg tablet Take 1 tablet by mouth daily at bedtime. budesonide-formoterol (SYMBICORT) 80-4.5 mcg/actuation inhaler Inhale 1 Puff as instructed twice daily. Use with spacer. Rinse mouth out after use. felodipine ER (PLENDIL) 5 mg 24 hr tablet Take 1 tablet by mouth once daily. montelukast (SINGULAIR) 10 mg tablet Take 1 tablet by mouth daily at bedtime. albuterol HFA (PROVENTIL HFA, VENTOLIN HFA) 90 mcg/actuation inhaler Inhale 2 Puffs as instructed every 4 hours as needed for wheezing/shortness of breath (chest tightness or cough, use with spacer. Can use 15 min pre-exercise). hyoscyamine (LEVSIN) 0.125 mg tablet Take 1 tablet by mouth every 6 hours as needed (cramping, diarrhea). cetirizine (ZYRTEC) 10 mg tablet Take 1 tablet by mouth once daily as needed for cold/allergy symptoms. THERAPEUTIC MULTIVITAMIN TAB Take one(1) tablet daily. FAMILY HISTORY Problem Relation Age of Onset Hypertension Mother Lipids Mother Diabetes Father Cancer Father Pancreatic Cancer Asthma Sister Ischemic Heart Disease Maternal Grandfather Social History Tobacco Use Smoking status: Never Smokeless tobacco: Never Vaping Use Vaping Use: Never used Substance Use Topics Alcohol use: Yes Comment: 1-2 per week Drug use: No PHYSICAL EXAM BP 132/86 Pulse 74 Resp 14 Wt 95.7 kg (211 lb) BMI 29.43 kg/m General Appearance: well appearing, in no acute distress, alert Lungs: Lungs clear to auscultation. No wheezing, rhonchi, rales. Heart: RRR without murmur, gallop, or rubs. No ectopy Musculoskeletal: Left elbow-tenderness with palpation of lateral epicondyle. Health maintenance reviewed with patient: HEPATITIS B(1 of 3 - 3-dose series) Never done DTAP,TDAP,TD(9 - Td or Tdap) due on 09/23/2020 SHINGRIX VACCINE(1 of 2) Never done DEPRESSION ASSESSMENT due on 03/29/2022 ANNUAL PCP TEAM CHRONIC DISEASE VISIT due on 02/10/2023 BP CONTROLLED (<130/80) due on 02/10/2023 DIABETES SCREEN due on 08/07/2025 LIPID SCREEN due on 08/08/2027 COLORECTAL CANCER SCREENING due on 06/07/2031 INFLUENZA Completed HEPATITIS C SCREENING Completed HIV SCREENING Completed COVID-19 VACCINE Completed PNEUMOCOCCAL Completed SPIROMETRY Discontinued DATA REVIEWED: Most recent labs ASSESSMENT/PLAN: 1. Left elbow pain - ICD9: 719.42, ICD10: M25.522 (primary diagnosis) Suspect epicondylitis. Discussed conservative treatment. Take Meloxicam daily for two weeks. Wear elbow brace consistently. Follow-up in 2-3 weeks if no improvement 2. Essential hypertension - ICD9: 401.9, ICD10: I10 - fair control - Continue current medication(s) - Encouraged dietary sodium restriction/DASH diet - Recommended regular aerobic exercise. - Recommend home blood pressure monitoring, to bring results in on next visit - Recheck in 3 months, sooner should new symptoms or problems arise. - Goal of BP <130/80 3. Pure hyperglyceridemia - ICD9: 272.1, ICD10: E78.1 worsening - Encouraged diet low in unhealthy saturated fats - LIPID PANEL BASIC in 3 months 4. Mild intermittent asthma with acute exacerbation - ICD9: 493.92, ICD10: J45.21 Stable 5. Irritable bowel syndrome with both constipation and diarrhea - ICD9: 564.1, ICD10: K58.2 Stable 6. Seasonal allergic rhinitis, unspecified trigger - ICD9: 477.9, ICD10: J30.2 Resume Singulair. Continue with Zyrtec 7. Encounter for immunization - ICD9: V03.89, ICD10: Z23 - TDAP VACCINE, AGE 7+ YR (ADACEL, BOOSTRIX) Prescription instructions reviewed with patient as applicable. Potential red flag symptoms discussed with the patient. Reviewed appropriate action plan to take if red flag symptoms occur. Patient agreeable to treatment plan. Maria Fernanda Seth APRN.CNP documented in this encounter [facility] 02-10-2022 History of Presen t illness Narrative This note was created using [employer]. Subjective Alirio Porras is a 51 year old male. He was getting over an upper respiratory infection and prednisone helped. His hypertension, and dyslipidemia improved. His weight needed to improve. Review of Systems HENT: Negative. Respiratory: Negative. Cardiovascular: Negative. Gastrointestinal: Negative for abdominal pain, nausea and vomiting. Neurological: Negative. ACTIVE PROBLEM LIST Essential Hypertension Asthma Pure Hyperglyceridemia Esophageal Reflux Seasonal Allergic Rhinitis Irritable Bowel Syndrome With Both Constipation and Diarrhea Social History Tobacco Use Smoking status: Never Smokeless tobacco: Never Vaping Use Vaping Use: Never used Substance Use Topics Alcohol use: Yes Comment: 1-2 per week Drug use: No Current Outpatient Medications Medication Sig predniSONE (DELTASONE) 20 mg tablet Take 2 tablets by mouth once daily for 5 days. Take daily with food. albuterol HFA (PROVENTIL HFA, VENTOLIN HFA) 90 mcg/actuation inhaler Inhale 2 Puffs as instructed every 4 hours as needed for wheezing/shortness of breath (chest tightness or cough, use with spacer. Can use 15 min pre-exercise). hyoscyamine (LEVSIN) 0.125 mg tablet Take 1 tablet by mouth every 6 hours as needed (cramping, diarrhea). irbesartan (AVAPRO) 150 mg tablet Take 1 tablet by mouth daily at bedtime. budesonide-formoterol (SYMBICORT) 80-4.5 mcg/actuation inhaler Inhale 1 Puff as instructed twice daily. Use with spacer. Rinse mouth out after use. Azelastine (ASTEPRO) 205.5 mcg (0.15 %) spry Use 2 Sprays in each nostril once daily as needed. Try in the evenings first. cetirizine (ZYRTEC) 10 mg tablet Take 1 tablet by mouth once daily as needed for cold/allergy symptoms. felodipine ER (PLENDIL) 5 mg 24 hr tablet Take 1 tablet by mouth once daily. montelukast (SINGULAIR) 10 mg tablet Take 1 tablet by mouth daily at bedtime. THERAPEUTIC MULTIVITAMIN TAB Take one(1) tablet daily. No current facility-administered medications for this visit. Objective BP 120/80 (BP Site: Right Arm, BP Position: Sitting, BP Cuff Size: Large Adult) Pulse 76 Temp 36.2 C (97.1 F) (Temporal) Resp 20 Wt 95.3 kg (210 lb) BMI 29.29 kg/m Physical Exam Constitutional: General: He is not in acute distress. Appearance: He is not ill-appearing. Cardiovascular: Rate and Rhythm: Normal rate and regular rhythm. Heart sounds: No murmur heard. No gallop. Pulmonary: Effort: Pulmonary effort is normal. Breath sounds: Normal breath sounds. No wheezing or rales. Abdominal: General: There is no distension. Palpations: Abdomen is soft. There is no mass. Tenderness: There is no abdominal tenderness. Musculoskeletal: Right lower leg: No edema. Left lower leg: No edema. Neurological: Mental Status: He is alert. Component Latest Ref Rng & Units 02/06/2022 Protein, Total 6.3 - 8.0 g/dL 7.2 Albumin 3.9 - 4.9 g/dL 4.5 Calcium 8.5 - 10.2 mg/dL 9.3 Bilirubin, Total 0.2 - 1.3 mg/dL 0.6 Alkaline Phosphatase 38 - 113 U/L 121 (H) AST 14 - 40 U/L 19 ALT 10 - 54 U/L 27 Glucose 74 - 99 mg/dL 98 BUN 9 - 24 mg/dL 9 Creatinine 0.73 - 1.22 mg/dL 1.09 Sodium 136 - 144 mmol/L 138 Potassium 3.7 - 5.1 mmol/L 4.3 Chloride 97 - 105 mmol/L 103 CO2 22 - 30 mmol/L 24 Anion Gap 9 - 18 mmol/L 11 eGFR >=60 mL/min/1.73m 83 Cholesterol, Total <200 mg/dL 168 Triglyceride <150 mg/dL 222 (H) HDL Cholesterol >39 mg/dL 30 (L) Non HDL Cholesterol <130 mg/dL 138 (H) Fasting Time hrs 12 VLDL Cholesterol <30 mg/dL 44 (H) TC:HDL Ratio <5.10 5.60 (H) LDL Cholesterol <100 mg/dL 94 LDL:HDL Ratio <2.54 3.13 (H) Assessment and Plan 1. Mild intermittent asthma without complication - ICD9: 493.90, ICD10: J45.20 (primary diagnosis) Stable. - Finish prednisone bolus. - BUDESONIDE-FORMOTEROL HFA 80 MCG-4.5 MCG/ACTUATION AEROSOL INHALER - MONTELUKAST 10 MG TABLET 2. Essential hypertension - ICD9: 401.9, ICD10: I10 - good control - IRBESARTAN 150 MG TABLET - FELODIPINE ER 5 MG TABLET,EXTENDED RELEASE 24 HR 3. Need for influenza vaccination - ICD9: V04.81, ICD10: Z23 - INFLUENZA VACCINE QUADRIVALENT 6 MO - 64 YRS IM 4. Pure hyperglyceridemia - ICD9: 272.1, ICD10: E78.1 Improved. - Discussed the benefits of regular aerobic exercise and weight loss. - Encouraged following a low carbohydrate, healthy oil intake diet. - LIPID PANEL BASIC - COMP METABOLIC PANEL 5. Need for vaccination - ICD9: V05.9, ICD10: Z23 - PNEUMOCOCCAL VACCINE (PREVNAR 20) 6. Elevated alkaline phosphatase level - ICD9: 790.5, ICD10: R74.8 Significance doubtful. Recheck in 6 months. Franc Coffman MD documented in this encounter [facility] 02-06-2022 History of Presen t illness Narrative Patient presents with: Nasal Congestion: Chest congestion, x1 wk. HPI: Feeling congested for 5 days, worse since yesterday. Exposed to cardboard dust this week. Positive symptoms: Cough, little Chest tightness, Sore throat when he coughs, Nasal Congestion, Rhinorrhea, Negative symptoms: Sinus pressure, Fever, Chills, Body Aches, Headache, Nausea, Vomiting, Diarrhea, OTC: Mucinex, inhaler Had COVID illness in September. PAST MEDICAL HISTORY Diagnosis Date Angioedema 07/17/2005 angioedema from lisinopril Asthma Conversion disorder Esophageal reflux Essential hypertension 10/19/2002 Pure hyperglyceridemia Pure hyperglyceridemia 04/10/2005 Rupture of Achilles tendon, traumatic 11/30/2013 Right side. Seasonal allergic rhinitis 06/26/2010 Unspecified asthma(493.90) 1980 childhood asthma MEDICATIONS: Current Outpatient Medications Medication Sig albuterol HFA (PROVENTIL HFA, VENTOLIN HFA) 90 mcg/actuation inhaler Inhale 2 Puffs as instructed every 4 hours as needed for wheezing/shortness of breath (chest tightness or cough, use with spacer. Can use 15 min pre-exercise). hyoscyamine (LEVSIN) 0.125 mg tablet Take 1 tablet by mouth every 6 hours as needed (cramping, diarrhea). irbesartan (AVAPRO) 150 mg tablet Take 1 tablet by mouth daily at bedtime. budesonide-formoterol (SYMBICORT) 80-4.5 mcg/actuation inhaler Inhale 1 Puff as instructed twice daily. Use with spacer. Rinse mouth out after use. Azelastine (ASTEPRO) 205.5 mcg (0.15 %) spry Use 2 Sprays in each nostril once daily as needed. Try in the evenings first. cetirizine (ZYRTEC) 10 mg tablet Take 1 tablet by mouth once daily as needed for cold/allergy symptoms. felodipine ER (PLENDIL) 5 mg 24 hr tablet Take 1 tablet by mouth once daily. montelukast (SINGULAIR) 10 mg tablet Take 1 tablet by mouth daily at bedtime. THERAPEUTIC MULTIVITAMIN TAB Take one(1) tablet daily. No current facility-administered medications for this visit. ALLERGIES: ALLERGIES Allergen Reactions Bactrim Ds [Sulfame* Environmental [Othe* Other: See Comments Dogs, Mold, Trees, Grass, [place], Ragweed Lisinopril Swelling Nystatin Rash Questionable rash Sulfa (Sulfonamide * VITALS: BP 136/88 Pulse 85 Temp 36.8 C (98.2 F) Resp 16 Wt 95.8 kg (211 lb 3.2 oz) SpO2 98% BMI 29.46 kg/m PHYSICAL EXAM: GEN: mildly ill appearing HEENT: PERRL, EOMI, conjunctiva clear Ears: canals clear. TMs without erythema, bulge, or effusion Sinuses: non-tender frontal sinus, non-tender maxillary sinuses Throat: moist mucous membranes, mild erythema, no exudate Neck: supple, no thyromegaly, no lymphadenopathy HEART: regular rate and rhythm, no murmurs LUNGS: clear to auscultation, no wheezes or crackles, no increased WOB; tight cough ASSESSMENT/PLAN: 1. URI, acute - ICD9: 465.9, ICD10: J06.9 (primary diagnosis) 2. Mild intermittent asthma with acute exacerbation - ICD9: 493.92, ICD10: J45.21 Suspect allergy earlier in the week and viral URI since yesterday. Low risk for recurrent COVID illness at this time. He is concerned that he will progress to significant respiratory flare up like he has when getting these symptoms previously. - PREDNISONE 20 MG TABLET burst. Have fasting labs drawn this morning before starting steroid. Keep follow up with PCP next week. Harry Aleman MD documented in this encounter [facility] 07-29-2021 History of Presen t illness Narrative CC: Patient presents with: Physical HPI Alirio Porras is a 50 year old male who presents today for annual physical exam. Exercise: likes to exercise by walking about 2 miles a few times a week Diet: Watches diet for salt (salty snacks, added salt, processed frozen/canned foods), sugary/sweet snacks, unhealthy fats: Yes Asthma- Symptoms: shortness of breath. Nocturnal Symptoms: No. Asthma is not limiting daily activities or exercise. Current pulmonary medications are Symbicort. Using albuterol more frequently which is normal for him around this time of year due to seasonal allergies. Allergy treatment includes singulair, Astepro, and Zyrtec. HTN-Medication changes:No Taking all medications as prescribed: Yes Side effects: No Home BP's: Yes 130's-140/70's-80 Last 3 Encounter BP Readings: Date: BP: 07/29/2021 126/80 06/24/2021 132/86 06/06/2021 127/79 REVIEW OF SYSTEMS General: no fevers, no chills, no night sweats, no change in appetite, no change in energy and no significant changes in weight HEENT: worsening vision, plans on following up with fire extinguisher installer. no frequent or significant headaches, no changes in hearing Respiratory: no cough, no wheezing, no hemoptysis Cardiovascular: no chest pain, no chest pressure, no palpitations, no swelling and no decrease in exercise tolerance GI: Negative for abdominal discomfort, blood in stools or black stools, change in bowel habit, heart burn, nausea, vomiting : No difficulty urinating, nocturia > 1 time per night or hematuria Musculoskeletal: Negative for joint pain or swelling, back pain or muscle pain Psych: Negative for sleep disturbance, mood disorder and recent psychosocial stressors PAST MEDICAL HISTORY Diagnosis Date Angioedema 07/17/2005 angioedema from lisinopril Asthma Conversion disorder Esophageal reflux Essential hypertension 10/19/2002 Pure hyperglyceridemia Pure hyperglyceridemia 04/10/2005 Rupture of Achilles tendon, traumatic 11/30/2013 Right side. Seasonal allergic rhinitis 06/26/2010 Unspecified asthma(493.90) 1980 childhood asthma PAST SURGICAL HISTORY Procedure Laterality Date COLONOSCOPY 06/06/2021 repeat in 10 years ESOPHAGOGASTRODUODENOSCOPY TRANSORAL DIAGNOSTIC 10/25/2006 EGD HERNIA REPAIR HX PAST SURGICAL HISTORY OF Right 06/12/2013 open repair right Achilles tendon; Dr Chon Cedeno RPR 1ST INGUN HRNA AGE 6 YRS/> REDUCIBLE 12/07/2000 Hernia repair, inguinal VASECTOMY UNI/BI SPX W/POSTOP SEMEN EXAMS 05/2005 ALLERGIES Bactrim Ds [Sulfamethoxazole-Trimethoprim], Environmental [Other], Lisinopril, Nystatin, and Sulfa (Sulfonamide Antibiotics) MEDICATIONS albuterol HFA (PROVENTIL HFA, VENTOLIN HFA) 90 mcg/actuation inhaler Inhale 2 Puffs as instructed every 4 hours as needed for wheezing/shortness of breath (chest tightness or cough, use with spacer. Can use 15 min pre-exercise). hyoscyamine (LEVSIN) 0.125 mg tablet Take 1 tablet by mouth every 6 hours as needed (cramping, diarrhea). irbesartan (AVAPRO) 150 mg tablet Take 1 tablet by mouth daily at bedtime. budesonide-formoterol (SYMBICORT) 80-4.5 mcg/actuation inhaler Inhale 1 Puff as instructed twice daily. Use with spacer. Rinse mouth out after use. Azelastine (ASTEPRO) 205.5 mcg (0.15 %) spry Use 2 Sprays in each nostril once daily as needed. Try in the evenings first. cetirizine (ZYRTEC) 10 mg tablet Take 1 tablet by mouth once daily as needed for cold/allergy symptoms. felodipine ER (PLENDIL) 5 mg 24 hr tablet Take 1 tablet by mouth once daily. montelukast (SINGULAIR) 10 mg tablet Take 1 tablet by mouth daily at bedtime. polyethylene glycol 3350 (MIRALAX, GLYCOLAX) 17 gram/dose powder Use as directed for Miralax / Gatorade Bowel Prep Kit Gatorade Sports Drink Use as directed for Miralax / Gatorade Bowel Prep Kit Bisacodyl (DULCOLAX) 5 mg tab Use as directed for Miralax / Gatorade Bowel Prep Kit THERAPEUTIC MULTIVITAMIN TAB Take one(1) tablet daily. FAMILY HISTORY Problem Relation Age of Onset Hypertension Mother Lipids Mother Diabetes Father Cancer Father Pancreatic Cancer Asthma Sister Ischemic Heart Disease Maternal Grandfather Social History Tobacco Use Smoking status: Never Smoker Smokeless tobacco: Never Used Vaping Use Vaping Use: Never used Substance Use Topics Alcohol use: Yes Comment: 1-2 per week Drug use: No PHYSICAL EXAM BP 126/80 Pulse 60 Resp 12 Ht 180.3 cm (5' 11") Wt 92.5 kg (204 lb) SpO2 98% BMI 28.45 kg/m General Appearance: well appearing, in no acute distress, alert Pysch: mood and affect broad and appropriate Skin: Skin color, texture, turgor normal for age; Eyes: conjunctiva pink and moist, no icterus, sclera white, non-injected Neck: Thyroid normal size and symmetric without palpable nodules, Neck supple, No adenopathy Lymph nodes: No supraclavicular lymphadenopathy Lungs: Lungs clear to auscultation. No wheezing, rhonchi, rales. Heart: RRR without murmur, gallop, or rubs. No ectopy Ext: no edema in LE bilaterally, good distal pulses BP CONTROLLED (<130/80) due on 01/21/2021 DEPRESSION SCREENING due on 07/25/2021 DTAP,TDAP,TD(9 - Td or Tdap) due on 01/28/2022 ANNUAL PCP TEAM CHRONIC DISEASE VISIT due on 01/28/2022 DIABETES SCREEN due on 07/24/2024 LIPID SCREEN due on 07/24/2026 COLORECTAL CANCER SCREENING due on 06/07/2031 INFLUENZA Completed HEPATITIS C SCREENING Completed HIV SCREENING Completed COVID-19 VACCINE Completed MENINGOCOCCAL CONJUGATE Aged Out SPIROMETRY Discontinued ASSESSMENT/PLAN: 1. Wellness examination - ICD9: V70.0, ICD10: Z00.00 (primary diagnosis) - Counseled on healthy diet and regular exercise - Discussed need for and benefit of weight loss. BMI 28.45 kg/(m^2) - Depression screening tool completed and reviewed with patient. Based on score and interview, patient is not at risk for depression and recommended no further intervention at this time. - Follow up for annual exam in one year 2. Mild intermittent asthma without complication - ICD9: 493.90, ICD10: J45.20 Seasonally more persistent secondary to allergic rhinitis. Continue with current medications. Avoidance of triggers recommended 3. Essential hypertension - ICD9: 401.9, ICD10: I10 - fair control - Continue current medication(s) - Recommended regular aerobic exercise. - Recommend home blood pressure monitoring, to bring results in on next visit - Goal of BP <130/80 4. Pure hyperglyceridemia - ICD9: 272.1, ICD10: E78.1 - good control 5. Seasonal allergic rhinitis, unspecified trigger - ICD9: 477.9, ICD10: J30.2 Stable Maria Fernanda Seth APRN.VAULT MAKER documented in this encounter [facility] 07-15-2021 Miscellaneous Notes Fasting labs ordered. documented in this encounter [facility] 06-30-2021 History of Presen t illness Narrative FOLLOW UP VISIT - ENDOSCOPY NAME: Alirio Porras [facility] NO.: [id number] DATE OF SERVICE: 06/24/2021 : 1970 REFERRING PHYSICIAN: Franc Coffman MD Alirio is a patient I am following with Dr. Tuttle for screening colonoscopy. Dr. Tuttle performed lower endoscopy on 06/06/21. Findings per procedure note showed: Impression: - Non-bleeding internal hemorrhoids. - One 3 to 6 mm polyp in the rectum, removed with a cold snare. Resected and retrieved. Pathology demonstrated: FINAL DIAGNOSIS Rectal polyp, biopsy: - Hyperplastic polyp. JEL 06/09/2021 The patient notes no complaints since the procedure. VITALS: Blood pressure 132/86, pulse 60, temperature 36.1 C (97 F), height 182.9 cm (6'), weight 93.4 kg (205 lb 12.8 oz), SpO2 99 %. General: patient is alert, cooperative, pleasant and in no acute distress On examination, the abdomen is benign. Assessment IMPRESSION: s/p colonoscopy with polypectomy-benign hyperplastic polyp PLAN: The operative findings and pathology report were reviewed with the patient, and the patient has had the opportunity to ask questions and have questions answered. If the patient notes any problems or changes in bowel function, the patient should contact me immediately. Otherwise I recommend follow up endoscopy in 10 years. HM updated and recall letter generated. Patient verbalized understanding of all above and agreed with the plan Diagnoses: (K62.1) Hyperplastic rectal polyp (primary encounter diagnosis) I spent a total of 23 minutes on the date of the service which included preparing to see the patient, [id number] patient care, completing clinical documentation, independently interpreting results (not separately reported) and communicating results to the patient/family/caregiver. Yovana Tucker PA-C documented in this encounter [facility] 06-24-2021 Instructions Yovana Tucker PA-C - 06/24/2021 10:40 AM EDT The following instructions are important for you related to your office visit today with the [facility]. INSTRUCTIONS FOLLOWING A POLYP FOUND AT COLONOSCOPY You were found to have a hyperplastic colon polyp. I recommend you undergo repeat endoscopy in 10 years. If you note bleeding, change in bowel habits, or other suspicious colon related symptoms before that time, those symptoms should be evaluated as necessary. If you have any difficulties or concerns, you should contact our office immediately. If you note any additional difficulties, questions, or concerns, you should contact our office immediately @ [phone] and ask to be transferred to the General Surgery department. documented in this encounter [facility] 07-11-2020 History of Presen t illness Narrative Radiology Service Progress Note PATIENT NAME: Alirio Porras DATE OF SERVICE: July 11, 2020 TIME: 3:09 PM PATIENT IDENTITY VERIFICATION COMPLETED USING TWO (2) IDENTIFIERS: Name and Date of confirmed by patient verbally. FALL SCREENING: Has the patient had 2 falls in the last year or 1 fall with injury or currently using an Ambulatory Assistive Device (Walker, Cane, Wheelchair, Crutches, etc.)? No PATIENT GENDER DATA: Male PATIENT RELEVANT IMPLANT DATA REVIEWED: Not Applicable RADIOLOGY DEPARTMENT: General X-ray: Exam(s) Completed: Spine X-Ray(s): Lumbar AP / LAT / L5-S1 PERIPHERAL IV DATA: Not applicable SIGNED BY: RT Val July 11, 2020 3:09 PM documented in this encounter [facility] 05-25-2016 History of Past i llness Narrative Problem Noted Date Resolved Date Chronic pain of left ankle 05/25/201604/06 Internal and external hemorrhoids without compli cation 04/09/2015 05/25/2016 Rupture of Achilles tendon, traumatic 11/30/2013 05/25/2016 Conversion disorder 10/25/2006 12/28/2012 Angioedema 07/17/2005 05/25/2016 Overview: angioedema from lisinopril documented as of this encounter (statuses as of 06/30/2021) [facility] History of Past illness Narrative* Problem Noted Date Resolved Date Chronic pain of left ankle 05/25/201604/06 Internal and external hemorrhoids without compli cation 04/09/2015 05/25/2016 Rupture of Achilles tendon, traumatic 11/30/2013 05/25/2016 Conversion disorder 10/25/2006 12/28/2012 Angioedema 07/17/2005 05/25/2016 Overview: angioedema from lisinopril documented as of this encounter (statuses as of 07/16/2021) [facility] History of Past illness Narrative* Problem Noted Date Resolved Date Chronic pain of left ankle 05/25/201604/06 Internal and external hemorrhoids without compli cation 04/09/2015 05/25/2016 Rupture of Achilles tendon, traumatic 11/30/2013 05/25/2016 Conversion disorder 10/25/2006 12/28/2012 Angioedema 07/17/2005 05/25/2016 Overview: angioedema from lisinopril documented as of this encounter (statuses as of 07/29/2021) [facility] History of Past illness Narrative* Problem Noted Date Resolved Date Chronic pain of left ankle 05/25/201604/06 Internal and external hemorrhoids without compli cation 04/09/2015 05/25/2016 Rupture of Achilles tendon, traumatic 11/30/2013 05/25/2016 Conversion disorder 10/25/2006 12/28/2012 Angioedema 07/17/2005 05/25/2016 Overview: angioedema from lisinopril documented as of this encounter (statuses as of 02/06/2022) [facility] History of Past illness Narrative* Problem Noted Date Resolved Date Chronic pain of left ankle 05/25/201604/06 Internal and external hemorrhoids without compli cation 04/09/2015 05/25/2016 Rupture of Achilles tendon, traumatic 11/30/2013 05/25/2016 Conversion disorder 10/25/2006 12/28/2012 Angioedema 07/17/2005 05/25/2016 Overview: angioedema from lisinopril documented as of this encounter (statuses as of 02/06/2022) [facility] History of Past illness Narrative* Problem Noted Date Resolved Date Chronic pain of left ankle 05/25/201604/06 Internal and external hemorrhoids without compli cation 04/09/2015 05/25/2016 Rupture of Achilles tendon, traumatic 11/30/2013 05/25/2016 Conversion disorder 10/25/2006 12/28/2012 Angioedema 07/17/2005 05/25/2016 Overview: angioedema from lisinopril documented as of this encounter (statuses as of 02/10/2022) [facility] History of Past illness Narrative* Problem Noted Date Resolved Date Chronic pain of left ankle 05/25/201604/06 Internal and external hemorrhoids without compli cation 04/09/2015 05/25/2016 Rupture of Achilles tendon, traumatic 11/30/2013 05/25/2016 Esophageal reflux 10/25/2006 08/10/2022 Conversion disorder 10/25/2006 12/28/2012 Angioedema 07/17/2005 05/25/2016 Overview: angioedema from lisinopril documented as of this encounter (statuses as of 08/10/2022) [facility] of Past [facility] Narrative* Problem Noted Date Diagnosed Date Resolved Date Chronic pain of left ankle 05/25/2016 0 04/06/2017 Internal and external hemorr hoids without complication 04/09/2015 05/25/2016 Rupture of Achilles tendon, traumatic 11/30/2013 05/25/2016 Esophageal reflux 10/25/2006 08/10/2022 Conversion disorder 10/25/2006 12/29/19 13 Angioedema 07/17/2005 05/25/2016 Overview: angioedema from lisinopril documented as of this encounter (statuses as of 10/06/2022) [facility] History of Past illness Narrative* Problem Noted Date Diagnosed Date Resolved Date Chronic pain of left ankle 05/25/2016 0 04/06/2017 Internal and external hemorr hoids without complication 04/09/2015 05/25/2016 Rupture of Achilles tendon, traumatic 11/30/2013 05/25/2016 Esophageal reflux 10/25/2006 08/10/2022 Conversion disorder 10/25/2006 12/29/19 13 Angioedema 07/17/2005 05/25/2016 Overview: angioedema from lisinopril documented as of this encounter (statuses as of 11/10/2022) [facility] History of Past illness Narrative* Problem Noted Date Diagnosed Date Resolved Date Chronic pain of left ankle 05/25/2016 0 04/06/2017 Internal and external hemorr hoids without complication 04/09/2015 05/25/2016 Rupture of Achilles tendon, traumatic 11/30/2013 05/25/2016 Esophageal reflux 10/25/2006 08/10/2022 Conversion disorder 10/25/2006 12/29/19 13 Angioedema 07/17/2005 05/25/2016 Overview: angioedema from lisinopril documented as of this encounter (statuses as of 12/29/2022) [facility] of Past [facility] Narrative* Problem Noted Date Diagnosed Date Resolved Date Chronic pain of left ankle 05/25/2016 0 04/06/2017 Internal and external hemorr hoids without complication 04/09/2015 05/25/2016 Rupture of Achilles tendon, traumatic 11/30/2013 05/25/2016 Esophageal reflux 10/25/2006 08/10/2022 Conversion disorder 10/25/2006 12/29/19 13 Angioedema 07/17/2005 05/25/2016 Overview: angioedema from lisinopril documented as of this encounter (statuses as of 02/12/2023) [facility] of Past [facility] Narrative* Problem Noted Date Diagnosed Date Resolved Date Chronic pain of left ankle 05/25/2016 0 04/06/2017 Internal and external hemorr hoids without complication 04/09/2015 05/25/2016 Rupture of Achilles tendon, traumatic 11/30/2013 05/25/2016 Esophageal reflux 10/25/2006 08/10/2022 Conversion disorder 10/25/2006 12/29/19 13 Angioedema 07/17/2005 05/25/2016 Overview: angioedema from lisinopril documented as of this encounter (statuses as of 02/20/2023) [facility] History of Past illness Narrative* Problem Noted Date Diagnosed Date Resolved Date Chronic pain of left ankle 05/25/2016 0 04/06/2017 Internal and external hemorr hoids without complication 04/09/2015 05/25/2016 Rupture of Achilles tendon, traumatic 11/30/2013 05/25/2016 Esophageal reflux 10/25/2006 08/10/2022 Conversion disorder 10/25/2006 12/29/19 13 Angioedema 07/17/2005 05/25/2016 Overview: angioedema from lisinopril documented as of this encounter (statuses as of 02/23/2023) [facility] History of Past illness Narrative* Problem Noted Date Diagnosed Date Resolved Date Chronic pain of left ankle 05/25/2016 0 04/06/2017 Internal and external hemorr hoids without complication 04/09/2015 05/25/2016 Rupture of Achilles tendon, traumatic 11/30/2013 05/25/2016 Esophageal reflux 10/25/2006 08/10/2022 Conversion disorder 10/25/2006 12/29/19 13 Angioedema 07/17/2005 05/25/2016 Overview: angioedema from lisinopril documented as of this encounter (statuses as of 06/21/2023) [facility] Diagnosis Hyperplastic rectal polyp- Primary Anal and rectal polyp [facility] Diagnosis Laboratory exam ordered as part of routine general medical examination- Primary Laboratory examination ordered as part of a routine general medical examination Screening for HIV without presence of risk factors Special screening examination for other specified viral diseases Encounter for hepatitis C screening test for low risk patient [facility] Diagnosis Wellness examination- Primary Mild intermittent asthma without complication Unspecified asthma Essential hypertension Unspecified essential hypertension Pure hyperglyceridemia Seasonal allergic rhinitis, unspecified trigger [facility] Diagnosis Essential hypertension- Primary Unspecified essential hypertension [facility] Diagnosis URI, acute- Primary Acute upper respiratory infections of unspecified site Mild intermittent asthma with acute exacerbation Unspecified asthma, with exacerbation documented in this encounter [facility] note* Diagnosis Mild intermittent asthma without complication- Primary Unspecified asthma Essential hypertension Unspecified essential hypertension Need for influenza vaccination Need for prophylactic vaccination and inoculation against influenza Pure hyperglyceridemia Need for vaccination Need for prophylactic vaccination and inoculation against unspecified single disease Elevated alkaline phosphatase level Other nonspecific abnormal serum enzyme levels [facility] Diagnosis Left elbow pain- Primary Pain in joint, upper arm Essential hypertension Unspecified essential hypertension Pure hyperglyceridemia Mild intermittent asthma with acute exacerbation Unspecified asthma, with exacerbation Irritable bowel syndrome with both constipation and diarrhea Seasonal allergic rhinitis, unspecified trigger Encounter for immunization Need for other specified prophylactic vaccination against single bacterial disease documented in this encounter [facility] note* Diagnosis Essential hypertension Unspecified essential hypertension [facility] Diagnosis Essential hypertension- Primary Unspecified essential hypertension Pure hyperglyceridemia Impaired glucose metabolism Impaired glucose tolerance test Mild intermittent asthma without complication Unspecified asthma [facility] Diagnosis Irritable bowel syndrome with both constipation and diarrhea Essential hypertension Unspecified essential hypertension [facility] Diagnosis Essential hypertension- Primary Unspecified essential hypertension Mild intermittent asthma without complication Unspecified asthma Pure hyperglyceridemia Impaired glucose metabolism Impaired glucose tolerance test Encounter for immunization Need for other specified prophylactic vaccination against single bacterial disease documented in this encounter [facility] note* Diagnosis Mild intermittent asthma with acute exacerbation- Primary Unspecified asthma, with exacerbation [facility] Diagnosis Essential hypertension Unspecified essential hypertension Mild intermittent asthma without complication Unspecified asthma [facility] Diagnosis Bacterial pneumonia- Primary Bacterial pneumonia, unspecified [facility] Diagnosis Encounter for annual physical exam- Primary Essential hypertension Unspecified essential hypertension Mild intermittent asthma without complication Unspecified asthma Pure hyperglyceridemia Irritable bowel syndrome with both constipation and diarrhea Seasonal allergic rhinitis, unspecified trigger Umbilical hernia without obstruction and without gangrene Family history of pancreatic cancer Family history of malignant neoplasm of gastrointestinal tract documented in this encounter [facility] note* Diagnosis Family history of pancreatic cancer- Primary Family history of malignant neoplasm of gastrointestinal tract documented in this encounter [facility] note* Diagnosis Essential hypertension Unspecified essential hypertension documented in this encounter [facility] note* Diagnosis Acute cough Shortness of breath documented in this encounter [facility] note* Diagnosis Back pain of lumbar region with sciatica documented in this encounter [facility] note* Diagnosis Essential hypertension Unspecified essential hypertension documented in this encounter [facility] note* Diagnosis Mild intermittent asthma without complication Unspecified asthma documented in this encounter [facility] note* Diagnosis Mild intermittent asthma without complication Unspecified asthma documented in this encounter [facility] note* Diagnosis Acute cough- Primary Community acquired pneumonia, unspecified laterality Acute cough Abdominal pain, generalized- Primary Rovsing's sign present Other symptoms involving digestive system documented in this encounter [facility] note* Diagnosis Acute cough Abdominal pain, generalized- Primary Rovsing's sign present Other symptoms involving digestive system documented in this encounter [facility] note* Diagnosis Pure hyperglyceridemia- Primary Essential hypertension Unspecified essential hypertension Impaired glucose metabolism Impaired glucose tolerance test Abdominal pain, generalized- Primary Rovsing's sign present Other symptoms involving digestive system documented in this encounter [facility] note* Diagnosis Family history of pancreatic cancer Family history of malignant neoplasm of gastrointestinal tract documented in this encounter [facility] note* Diagnosis Abnormal chest x-ray- Primary Other nonspecific abnormal finding of lung field documented in this encounter [facility] note* Diagnosis Abnormal chest x-ray Other nonspecific abnormal finding of lung field documented in this encounter [facility] Summary Purpose Family History No Family History Records FoundNo Family History Records Found Advance Directives Documents on File Type Date Recorded Patient Transportation Specialist Expl anation Advance Directive(s) 06/06/2021 7:22 AM Advance Directive(s) 04/24/2021 11:03 AM Reason for Referral Specialty Diagnoses / Procedures Referred By Mirian dos santos Referred To Contact Oncology Diagnoses Family history of pancreatic cancer Procedures CONSULT TO ONCOLOGY OFFICE/OUTPATIENT [facility] 60 MINUTES Franc Coffman MD [address] [place] [address] Referral ID Status Reason Start Date Expiration Date Visits Requested Visits Authorized [id number] Authorized PCP Requested Referral 08/17/2023 08/16/2024 1 1 Specialty Diagnoses / Procedures Referred By Mirian dos santos Referred To Contact Diagnoses Family history of pancreatic cancer Procedures CONSULT TO MEDICAL GENETICS - CANCER MEDICAL GENETICS COUNSELING EACH 30 MINUTES Franc Coffman MD [address] [place] [address] [facility] [address] [place] [address] Referral ID Status Reason Start Date Expiration Date Visits Requested Visits Authorized [id number] Authorized PCP Requested Referral Auto-Generate d Referral 08/17/2023 08/16/2024 1 1 Additional Source Comments (unrecognized sect ion and content) No Status Records FoundNo Status Records Found INFORMATION SOURCE (unrecogn ized section and content) DATE CREATED AUTHOR 09/22/[address] [facility] DATE CREATED AUTHOR AUTHOR'S ORGANIZ ATION 09/29/2024 [facility] Source Comments (unrecognize d section and content) In the event this informatio n is protected by the Federal Confidentiality of Alcohol and Drug Abuse Patient Records regulations: The Federal rules restrict any use of the information to criminally investigate or prosecute any alcohol or drug abuse patient.[facility] the event this information is protected by the Federal Confidentiality of Alcohol and Drug Abuse Patient Records regulations: The Federal rules restrict any use of the information to criminally investigate or prosecute any alcohol or drug abuse patient.[facility] the event this information is protected by the Federal Confidentiality of Alcohol and Drug Abuse Patient Records regulations: The Federal rules restrict any use of the information to criminally investigate or prosecute any alcohol or drug abuse patient.[facility] the event this information is protected by the Federal Confidentiality of Alcohol and Drug Abuse Patient Records regulations: The Federal rules restrict any use of the information to criminally investigate or prosecute any alcohol or drug abuse patient.[facility] the event this information is protected by the Federal Confidentiality of Alcohol and Drug Abuse Patient Records regulations: The Federal rules restrict any use of the information to criminally investigate or prosecute any alcohol or drug abuse patient.[facility] the event this information is protected by the Federal Confidentiality of Alcohol and Drug Abuse Patient Records regulations: The Federal rules restrict any use of the information to criminally investigate or prosecute any alcohol or drug abuse patient.[facility] the event this information is protected by the Federal Confidentiality of Alcohol and Drug Abuse Patient Records regulations: The Federal rules restrict any use of the information to criminally investigate or prosecute any alcohol or drug abuse patient.[facility] the event this information is protected by the Federal Confidentiality of Alcohol and Drug Abuse Patient Records regulations: The Federal rules restrict any use of the information to criminally investigate or prosecute any alcohol or drug abuse patient.[facility] the event this information is protected by the Federal Confidentiality of Alcohol and Drug Abuse Patient Records regulations: The Federal rules restrict any use of the information to criminally investigate or prosecute any alcohol or drug abuse patient.[facility] the event this information is protected by the Federal Confidentiality of Alcohol and Drug Abuse Patient Records regulations: The Federal rules restrict any use of the information to criminally investigate or prosecute any alcohol or drug abuse patient.[facility] the event this information is protected by the Federal Confidentiality of Alcohol and Drug Abuse Patient Records regulations: The Federal rules restrict any use of the information to criminally investigate or prosecute any alcohol or drug abuse patient.[facility] the event this information is protected by the Federal Confidentiality of Alcohol and Drug Abuse Patient Records regulations: The Federal rules restrict any use of the information to criminally investigate or prosecute any alcohol or drug abuse patient.[facility] the event this information is protected by the Federal Confidentiality of Alcohol and Drug Abuse Patient Records regulations: The Federal rules restrict any use of the information to criminally investigate or prosecute any alcohol or drug abuse patient.[facility] the event this information is protected by the Federal Confidentiality of Alcohol and Drug Abuse Patient Records regulations: The Federal rules restrict any use of the information to criminally investigate or prosecute any alcohol or drug abuse patient.[facility] the event this information is protected by the Federal Confidentiality of Alcohol and Drug Abuse Patient Records regulations: The Federal rules restrict any use of the information to criminally investigate or prosecute any alcohol or drug abuse patient.[facility] the event this information is protected by the Federal Confidentiality of Alcohol and Drug Abuse Patient Records regulations: The Federal rules restrict any use of the information to criminally investigate or prosecute any alcohol or drug abuse patient.[facility] the event this information is protected by the Federal Confidentiality of Alcohol and Drug Abuse Patient Records regulations: The Federal rules restrict any use of the information to criminally investigate or prosecute any alcohol or drug abuse patient.[facility] the event this information is protected by the Federal Confidentiality of Alcohol and Drug Abuse Patient Records regulations: The Federal rules restrict any use of the information to criminally investigate or prosecute any alcohol or drug abuse patient.[facility] the event this information is protected by the Federal Confidentiality of Alcohol and Drug Abuse Patient Records regulations: The Federal rules restrict any use of the information to criminally investigate or prosecute any alcohol or drug abuse patient.[facility] HospitalIn the event this information is protected by the Federal Confidentiality of Alcohol and Drug Abuse Patient Records regulations: The Federal rules restrict any use of the information to criminally investigate or prosecute any alcohol or drug abuse patient.[facility] HospitalIn the event this information is protected by the Federal Confidentiality of Alcohol and Drug Abuse Patient Records regulations: The Federal rules restrict any use of the information to criminally investigate or prosecute any alcohol or drug abuse patient.[facility] HospitalIn the event this information is protected by the Federal Confidentiality of Alcohol and Drug Abuse Patient Records regulations: The Federal rules restrict any use of the information to criminally investigate or prosecute any alcohol or drug abuse patient.[facility] HospitalIn the event this information is protected by the Federal Confidentiality of Alcohol and Drug Abuse Patient Records regulations: The Federal rules restrict any use of the information to criminally investigate or prosecute any alcohol or drug abuse patient.[facility] HospitalIn the event this information is protected by the Federal Confidentiality of Alcohol and Drug Abuse Patient Records regulations: The Federal rules restrict any use of the information to criminally investigate or prosecute any alcohol or drug abuse patient.[facility] HospitalIn the event this information is protected by the Federal Confidentiality of Alcohol and Drug Abuse Patient Records regulations: The Federal rules restrict any use of the information to criminally investigate or prosecute any alcohol or drug abuse patient.[facility] HospitalIn the event this information is protected by the Federal Confidentiality of Alcohol and Drug Abuse Patient Records regulations: The Federal rules restrict any use of the information to criminally investigate or prosecute any alcohol or drug abuse patient.[facility] HospitalIn the event this information is protected by the Federal Confidentiality of Alcohol and Drug Abuse Patient Records regulations: The Federal rules restrict any use of the information to criminally investigate or prosecute any alcohol or drug abuse patient.[facility] HospitalIn the event this information is protected by the Federal Confidentiality of Alcohol and Drug Abuse Patient Records regulations: The Federal rules restrict any use of the information to criminally investigate or prosecute any alcohol or drug abuse patient.[facility] HospitalIn the event this information is protected by the Federal Confidentiality of Alcohol and Drug Abuse Patient Records regulations: The Federal rules restrict any use of the information to criminally investigate or prosecute any alcohol or drug abuse patient.[facility] HospitalIn the event this information is protected by the Federal Confidentiality of Alcohol and Drug Abuse Patient Records regulations: The Federal rules restrict any use of the information to criminally investigate or prosecute any alcohol or drug abuse patient.[facility] HospitalIn the event this information is protected by the Federal Confidentiality of Alcohol and Drug Abuse Patient Records regulations: The Federal rules restrict any use of the information to criminally investigate or prosecute any alcohol or drug abuse patient.[facility] HospitalIn the event this information is protected by the Federal Confidentiality of Alcohol and Drug Abuse Patient Records regulations: The Federal rules restrict any use of the information to criminally investigate or prosecute any alcohol or drug abuse patient.[facility] HospitalIn the event this information is protected by the Federal Confidentiality of Alcohol and Drug Abuse Patient Records regulations: The Federal rules restrict any use of the information to criminally investigate or prosecute any alcohol or drug abuse patient.[facility] Reason for Visit (unrecogniz ed section and content) Reason Comments Follow Up colonoscopy Reason Comments Physical Reason Comments Nasal Congestion Chest congestion, x1 wk. Reason Onset Date Comments F/U 6 months Immunizations 02/10/2022 Flu vaccination Reason Comments F/U 6 months C/o left elbow pain Reason Onset Date Comments Refill Request 10/04/2022 Reason Comments F/U 3 Month Bp Reason Onset Date Comments Refill Request 12/26/2022 Reason Comments Follow Up Reason Onset Date Comments Refill Request 02/21/2023 Reason Comments Cough Cough x 5 dys Reason Comments Physical F/U 6 months Reason Onset Date Comments Refill Request 10/05/2023 Specialty Diagnoses / Procedures Referred By Mirian dos santos Referred To Contact XR IMAGING Diagnoses Back pain of lumbar region with sciatica [M54.40] Procedures Back pain of lumbar region with sciatica [M54.40] Debby Smith, ALEX[address] [place] [address] Xr Imaging [facility] Referral ID Status Reason Start Date Expiration Date V isits Requested Visits Authorized [id number] Closed OON/Self Pay Override 07/11/2020 10/09/2020 1 1 Reason Onset Date Comments Refill Request 01/08/2024 Reason Onset Date Comments Refill Request 03/28/2024 Reason Comments Cough Chest congestion, SO B, fever x6 days Reason Comments Orders Reason Comments Family History Of Cancer Specialty Diagnoses / Procedures Referred By Mirian dos santos Referred To Contact Diagnoses Family history of pancreatic cancer Procedures CONSULT TO MEDICAL GENETICS - CANCER MEDICAL GENETICS COUNSELING EACH 30 MINUTES Franc Coffman MD [address] [place] [address] Phone: tel: fax: [facility] ChildrenNatividad [place] [address] Referral ID Status Reason Start Date Expiration Date V isits Requested Visits Authorized [id number] Closed PCP Requested Referral Auto-Generated Referral 08/17/2024 08/17/2025 1 1 Care Teams (unrecognized sec tion and content) Consolidator Relationship Specialty Start Date End Date Franc Coffman MD [address] [facility] [place] [address] PCP - General Internal Medicine 08/21/16 Consolidator Relationship Specialty Start Date End Date Franc Coffman MD [address] [facility] [place] [address] PCP - General Internal Medicine 08/21/16 Consolidator Relationship Specialty Start Date End Date Franc Coffman MD [address] [facility] [place] [address] PCP - General Internal Medicine 08/21/16 Consolidator Relationship Specialty Start Date End Date Franc Coffman MD [address] [facility] [place] [address] PCP - General Internal Medicine 08/21/16 Consolidator Relationship Specialty Start Date End Date Franc Coffman MD [address] [facility] [place] [address] PCP - General Internal Medicine 08/21/16 Consolidator Relationship Specialty Start Date End Date Franc Coffman MD [address] [facility] [place] [address] PCP - General Internal Medicine 08/21/16 Consolidator Relationship Specialty Start Date End Date Franc Coffman MD [address] [facility] [place] [address] PCP - General Internal Medicine 08/21/16 Consolidator Relationship Specialty Start Date End Date Franc Coffman MD [address] [facility] [place] [address] PCP - General Internal Medicine 08/21/16 Consolidator Relationship Specialty Start Date End Date Franc Coffman MD [address] [facility] [place] [address] PCP - General Internal Medicine 08/21/16 Consolidator Relationship Specialty Start Date End Date Franc Coffman MD [address] [facility] [place] [address] PCP - General Internal Medicine 08/21/16 Consolidator Relationship Specialty Start Date End Date Franc Coffman MD [address] [facility] [place] [address] PCP - General Internal Medicine 08/21/16 Consolidator Relationship Specialty Start Date End Date Franc Coffman MD [address] [facility] [place] [address] PCP - General Internal Medicine 08/21/16 Consolidator Relationship Specialty Start Date End Date Franc Coffman MD [address] [facility] [place] [address] PCP - General Internal Medicine 08/21/16 Consolidator Relationship Specialty Start Date End Date Franc Coffman MD [address] [facility] [place] [address] PCP - General Internal Medicine 08/21/16 Consolidator Relationship Specialty Start Date End Date Franc Coffman MD [address] [facility] [place] [address] PCP - General Internal Medicine 08/21/16 Consolidator Relationship Specialty Start Date End Date Franc Coffman MD [address] [facility] [place] [address] PCP - General Internal Medicine 08/21/16 Maria Fernanda Osei, CLIENT SERVICES ANALYST.VAULT MAKER [address] [facility] [place] [address] [employer] Internal Medicine 03/06/24 Consolidator Relationship Specialty Start Date End Date Franc Coffman MD [address] [facility] [place] [address] PCP - General Internal Medicine 08/21/16 Maria Fernanda Osei, CLIENT SERVICES ANALYST.VAULT MAKER [address] [place] [address] [employer] Internal Medicine 03/06/24 Consolidator Relationship Specialty Start Date End Date Franc Coffman MD [address] [place] [address] PCP - General Internal Medicine 08/21/16 Maria Fernanda Osei, CLIENT SERVICES ANALYST.VAULT MAKER [address] [place] [address] [facility] Internal Medicine 03/06/24 Consolidator Relationship Specialty Start Date End Date Franc Coffman MD [address] [place] [address] PCP - General Internal Medicine 08/21/16 Maria Fernanda Osei, CLIENT SERVICES ANALYST.VAULT MAKER [address] [place] [address] [facility] Internal Medicine 03/06/24 Consolidator Relationship Specialty Start Date End Date Franc Coffman MD [address] [place] [address] PCP - General Internal Medicine 08/21/16 Maria Fernanda Osei, CLIENT SERVICES ANALYST.VAULT MAKER [address] [place] [address] [employer] Internal Medicine 03/06/24 Consolidator Relationship Specialty Start Date End Date Franc Coffman MD [address] [place] [address] PCP - General Internal Medicine 08/21/16 Maria Fernanda Osei, CLIENT SERVICES ANALYST.VAULT MAKER [address] [place] [address] [employer] Internal Medicine 03/06/24 Consolidator Relationship Specialty Start Date End Date Franc Coffman MD [address] [place] [address] PCP - General Internal Medicine 08/21/16 Maria Fernanda Osei, CLIENT SERVICES ANALYST.VAULT MAKER [address] [place] [address] [facility] Internal Medicine 03/06/24 Consolidator Relationship Specialty Start Date End Date Franc Coffman MD [address] [place] [address] PCP - General Internal Medicine 08/21/16 Maria Fernanda Osei, CLIENT SERVICES ANALYST.VAULT MAKER [address] [place] [address] [facility] Internal Medicine 03/06/24 Consolidator Relationship Specialty Start Date End Date Franc Coffman MD [address] [place] [address] PCP - General Internal Medicine 08/21/16 Maria Fernanda Osei, CLIENT SERVICES ANALYST.VAULT MAKER [address] [place] [address] [employer] Internal Medicine 03/06/24 FOR RECORDS PERTAINING TO PATIENTS WHO ARE OR HAVE BEEN ENROLLED IN A CHEMICAL DEPENDENCY/SUBSTANCEABUSE PROGRAM, SOME INFORMATION MAY BE OMITTED. This clinical summary was aggregated from multiple sources. Caution should be exercised in using it in the provision of clinical care. This summary normalizes information from multiple sources, and as a consequence, information in this document may materially change the coding, format and clinical context of patient data. In addition, data may be omitted in some cases. CLINICAL DECISIONS SHOULD BE BASED ON THE PRIMARY CLINICAL RECORDS. [employer] provides no warranty or guarantee of the accuracy or completeness of information in this document.
--- NOTE | 2025-01-11 18:30 | CT_ITS ---
PROCEDURE: SINUS/FACIAL BONE 01/11/2025 REASON FOR EXAM: CHRONIC SINUSITIS TECHNIQUE: Procedure Code: CTSI Modality: CT Procedure: SINUS/FACIAL BONE Coronal and Sagittal reconstruction series were provided. One or more dose reduction techniques were used (e.g., Automated exposure control, adjustment of the mA and/or kV according to patient size, use of iterative reconstruction technique). RADIATION DOSE SUMMARY: CTDlvol: 33.06 mGy DLP: 875.17 mGycm COMPARISON: None. FINDINGS: Frontal: Clear. The frontoethmoidal recesses are patent. Ethmoid: Clear. Sphenoid: Clear. Maxillary: Opacification of the right maxillary sinus. The left maxillary sinus is clear. The left ostiomeatal complex is patent. Turbinates: Unremarkable without on ingrid bullosa. Nasal Septum: S shaped bowing of the nasal septum with 3 mm spur protruding into the left nasal cavity. Mastoids/Middle Ears: Clear. CT/Sinus/Facial Bone IMPRESSION: Opacification of the right maxillary sinus. No wall thickening. The remainder paranasal sinuses are clear. Reading Location: ON LICENSE OF [facility]
== END | disposition home or self-care (01) ==
PROVIDERS: PCP Internal Medicine; Referring Provider Otolaryngology; Visit Provider Otolaryngology
DX: J32.8 Other chronic sinusitis (principal)
CPT/HCPCS: 70486